=== PATIENT | male | born 1925 | race Caucasian/White ===

== ENCOUNTER 2016-06-08 11:50 | Inpatient (IN) | payer MEDICARE ==
[~2016-06-08] VITALS: Ht 170.2 cm; Wt 88.2 kg
[~2016-06-08 11:50] MED LIST: /AMLO25TA PO; /METO25TAB PO; /RANI15TA PO; ALBU17IN INH; AMLO10TA PO; AMLO2.5T PO; AMLO5TAB2 PO; ASPI1TAB PO; ASPI325T5 PO; CHLO25TA3 PO; CIPR500T89 PO; DETR4CAP PO; FINA5TAB2 PO; FLOM5CAP PO; HYDR10TAB PO; LISI-538 PO; METO25TA74 PO; NORV5TAB PO; OFLO1DRO3 AD; PROS5TAB PO; PYRI100T PO; RANI150T PO; SYST1SOL OU; TAMS0.4C PO; TAMS0.4C2 PO; TOLT2TAB PO; TROS20TA3 PO; WARF-20 PO; WARF4TAB28 PO; ZEST1TAB7 PO
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
--- NOTE | 2016-06-08 13:49 | IPNPDOC ---
Bicycle Fitter Progress Note DATE OF SERVICE: DATE OF ADMISSION: Jun 08, 2016 at 11:50 INPATIENT REHABILITATION ADMISSION DAY: # IDENTIFICATION STATEMENT: PAST MEDICAL HISTORY: PAST SURGICAL HISTORY: ALLERGIES: See Below MEDICATIONS ON ADMISSION: Reviewed, see below. SUBJECTIVE: VITAL SIGNS: Temperature , pulse , respiratory rate , blood pressure , pulse oximetry % on saturation on room air. PHYSICAL EXAMINATION: GENERAL: HEENT: . CARDIOVASCULAR: LUNGS: . ABDOMEN: . NEUROLOGICAL: SKIN: LABORATORY DATA: Reviewed, see below. IMAGING: ASSESSMENT AND PLAN: 1. . 2. . 3. . FUNCTIONAL STATUS: Premorbid: On Admission: ACTIVITY LIMITATIONS ON ADMISSION: 1. Difficulty with self-care. 2. Difficulty with mobility. 3. Difficulty with swallowing. 4. . PARTICIPATION LIMITATIONS ON ADMISSION: 1. Threatened discharge to home. 2. Threatened independence. 3. Threatened community access. 4. INTERDISCIPLINARY CARE AND DISCHARGE PLANNIN. . 2. . 3. . 4. . 5. . Vital Signs Vital Sign - Last 24 Hours 06/08/16 11:50 Temp 98.7 Pulse 59 Resp 18 Pulse Ox 99 O2 Delivery Room Air Allergies Allergies: Coded Allergies: No Known Allergies (Verified , 12/25/02) Current Medications Current Medications Current Medications Acetaminophen 650 mg 650 mg Q4HP PRN PO MILD PAIN (PS 1-4); Start 06/08/16 at 12:30; Stop 07/08/16 at 12:29 Amlodipine Besylate (Norvasc) 5 mg DAILY PO ; Start 06/09/16 at 09:00; Stop at 08:59 Ceftriaxone Sodium/Dextrose (Rocephin/ Dextrose 5% Mini-Bag Plus) 50 ml @ 100 mls/hr Q24H IV ; Start 06/09/16 at 08:00; Stop 06/16/16 at 07:59 Chlorthalidone (Hygroton) 25 mg DAILY@12 PO ; Start 06/09/16 at 12:00; Stop at 11:59 Docusate Sodium (Colace) 100 mg BID PO ; Start 06/08/16 at 09:00; Stop at 08:59 Magnesium Hydroxide (Milk Of Magnesia) 30 ml DAILYPRN PRN PO CONSTIPATION; Start 06/08/16 at 12:30; Stop 07/08/16 at 12:29 Metoprolol Succinate (TopROL XL) 25 mg BID PO ; Start 06/08/16 at 21:00; Stop 07/08/16 at 20:59 Pantoprazole Sodium (Protonix) 40 mg DAILY PO ; Start 06/09/16 at 09:00; Stop 07/09/16 at 08:59 Polyethylene Glycol (Miralax) 1 pkt DAILY PRN PO CONSTIPATION; Start 06/08/16 at 12:30; Stop 07/08/16 at 12:29 Potassium Chloride (Micro-K Extencaps) 40 meq DAILY PO ; Start 06/09/16 at 09: 00; Stop 07/09/16 at 08:59 Senna (Senokot) 1 tab QHS PO ; Start 06/08/16 at 21:00; Stop 07/08/16 at 20:59 JOHN FRY MD Jun 08, 2016 13:49
[2016-06-08] MEDS: DOCUSATE SODIUM 100 MG CAP PO SCH ×2 (13:53→20:21)
[2016-06-08 14:00] VITALS: BP 130/72
[2016-06-08 20:00] VITALS: BP 131/70
[2016-06-08] MEDS: METOPROLOL SUCC *XL* 25MG TAB (TopROL *XL*) PO SCH (20:21)
[2016-06-08] MEDS: SENNA 8.6 MG TAB (SENOKOT) PO SCH (20:21)
--- NOTE | 2016-06-08 21:11 | IPN ---
DATE: 06/07/2016 SUBJECTIVE: Mr. Cancino does not have any new complaints today. He has the persistent weakness of his left upper extremity and lower extremity but denies any pain. Denies any shortness of breath, any cough or phlegm. Denies any abdominal pain, nausea, vomiting, or diarrhea. Denies any leg pain or leg swelling. Denies any dysuria or frequency of urination. Patient was noted to be febrile and has been having spikes of temperature as high as 101.6 over the past 2 days; however, the patient did not complain of any chills. PHYSICAL EXAMINATION: VITAL SIGNS: Temperature 99, pulse 71, respiratory rate 16, blood pressure 152/68, pulse oximetry 95% on room air. GENERAL: Patient awake, alert, oriented times three, sitting up in chair in no acute distress. HEENT: Normocephalic, atraumatic. Moist mucous membranes. Anicteric eyes. CHEST: Clear to auscultation. CARDIOVASCULAR: S1, S2, regular. ABDOMEN: Soft, nontender. Bowel sounds present. EXTREMITIES: No edema. LABORATORY DATA: WBC 12.2, hemoglobin 11, platelets 160. Sodium 138, potassium 3.5, chloride 102, bicarbonate 25, BUN 29, creatinine 1.1, calcium 8.4. Liver function tests are normal. Coagulation profile is normal. UA dirty with 3+ leukocyte esterase, numerous WBC, 2+ blood, nitrite positive. Blood cultures and urine culture have been ordered. ASSESSMENT: This is an 89-year-old male admitted for intracranial hemorrhage. PLAN: 1. For intracranial hemorrhage patient's CT scan has been stable. Patient was initially admitted to Dr. Mckeon's service, but subsequently patient was signed off to hospitalist service. Patient has persistent left hemiparesis. Will need inpatient rehabilitation. 2. Atrial fibrillation, rate is controlled. Patient is n metoprolol. The patient has been off all anticoagulation because of intracranial bleed and has to be off anticoagulation for 6-8 weeks. 3. Benign prostatic hypertrophy (BPH). Will continue patient on finasteride and trospium. 4. Chronic kidney disease (CKD), stage II-III. Patient's creatinine is at baseline. 5. Hypertension, leading to hypertensive intracranial hemorrhage. 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 Will change amlodipine to 5 mg twice a day. Will continue with chlorthalidone and with metoprolol. Will also keep hydralazine as needed. 6. Deep vein thrombosis (DVT) prophylaxis is in place. 7. Gastrointestinal (GI) prophylaxis is in place.
[2016-06-09 06:00] VITALS: BP 161/71
[2016-06-09] MEDS: ACETAMINOPHEN TAB 650MG DOSE (2X325MG) PO PRN ×2 (06:08→17:02)
[2016-06-09 07:02] LABS: BASO # 0.1 K/mm3 (0.0-0.2); BASO % 0.9 % (0.0-1.0); EOS # 0.1 K/mm3 (0.0-0.50); EOS % 0.8 % (0.0-3.0); LARGE UNSTAINED CELL # 0.3 K/mm3 (0.0-0.4); LARGE UNSTAINED CELL % 3.1 % (0.0-4.0); LYMPH # 1.8 K/mm3 (1.5-4.5); LYMPH % 16.7 % (24.0-44.0); MEAN CORPUSCULAR HEMOGLOBIN 29.5 pg (27.0-33.0); MEAN CORPUSCULAR HGB CONC 33.6 g/dl (32.0-36.5); MEAN CORPUSCULAR VOLUME 87.9 fl (80.0-96.0); MONO # 0.7 K/mm3 (0.0-0.8); MONO % 7.3 % (0.0-5.0); NEUTROPHILS # 6.3 K/mm3 (1.8-7.7); NEUTROPHILS % 71.1 % (36.0-66.0); PLATELET COUNT, AUTOMATED 198 k/mm3 (150-450); RED CELL DISTRIBUTION WIDTH 13.7 % (11.5-14.5); WHITE BLOOD COUNT 8.8 K/mm3 (4.0-10.0)
[2016-06-09 07:38] LABS: ANION GAP 10 MEQ/L (8-16); BLOOD UREA NITROGEN 30 MG/DL (7-18); CALCIUM LEVEL 8.1 MG/DL (8.8-10.2); CARBON DIOXIDE LEVEL 27 MEQ/L (21-32); CHLORIDE LEVEL 98 MEQ/L (98-107); CREATININE FOR GFR 1.18 MG/DL (0.70-1.30); GLOMERULAR FILTRATION RATE > 60.0 (>35); GLUCOSE, FASTING 104 MG/DL (83-110); POTASSIUM SERUM 3.9 MEQ/L (3.5-5.1); SODIUM LEVEL 135 MEQ/L (136-145)
[2016-06-09] MEDS ORDERED: cefTRIAXone SOD 1 GM in D5W MINI-BAG PLUS 50 ML IV SCH (08:00)
[2016-06-09] MEDS: PANTOPRAZOLE 40MG TAB (PROTONIX) PO SCH (08:50)
[2016-06-09] MEDS: POTASSIUM CHLORIDE 10 MEQ SR TABLET PO SCH (08:51)
[2016-06-09] MEDS: DOCUSATE SODIUM 100 MG CAP PO SCH ×2 (08:51→20:10)
[2016-06-09] MEDS: METOPROLOL SUCC *XL* 25MG TAB (TopROL *XL*) PO SCH ×2 (08:52→20:10)
[2016-06-09] MEDS ORDERED: amLODIPine 5 MG TAB PO SCH (09:00)
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
[2016-06-09 11:03] VITALS: BP 134/62
[2016-06-09] MEDS: LACTOBACILLUS ACIDOPHILUS CAP (BACID) PO SCH ×3 (12:07→20:10)
[2016-06-09] MEDS: CHLORTHALIDONE 25 MG TAB PO SCH (12:07)
[2016-06-09 14:00] VITALS: BP 170/70
[2016-06-09 20:00] VITALS: BP 165/78
[2016-06-09] MEDS: FINASTERIDE 5 MG TAB PO SCH (20:10)
[2016-06-09] MEDS: SENNA 8.6 MG TAB (SENOKOT) PO SCH (20:10)
[2016-06-09] MEDS: CEFDINIR 300 MG CAP (OMNICEF) PO SCH (20:10)
[2016-06-09] MEDS: amLODIPine 5 MG TAB PO SCH (20:11)
[2016-06-10 06:00] VITALS: BP 158/80
[2016-06-10] MEDS: POTASSIUM CHLORIDE 10 MEQ SR TABLET PO SCH (09:00)
[2016-06-10] MEDS: CEFDINIR 300 MG CAP (OMNICEF) PO SCH ×2 (09:03→21:37)
[2016-06-10] MEDS: DOCUSATE SODIUM 100 MG CAP PO SCH ×2 (09:03→21:00)
[2016-06-10] MEDS: LACTOBACILLUS ACIDOPHILUS CAP (BACID) PO SCH ×3 (09:05→21:36)
[2016-06-10] MEDS: PANTOPRAZOLE 40MG TAB (PROTONIX) PO SCH (09:06)
[2016-06-10] MEDS: METOPROLOL SUCC *XL* 25MG TAB (TopROL *XL*) PO SCH ×2 (09:06→21:37)
[2016-06-10] MEDS: amLODIPine 5 MG TAB PO SCH ×2 (09:07→21:36)
[2016-06-10] MEDS: CHLORTHALIDONE 25 MG TAB PO SCH (11:50)
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
[2016-06-10 14:00] VITALS: BP 138/74
--- NOTE | 2016-06-10 16:04 | REP ---
LEFT HIP SERIES: TWO VIEWS. HISTORY: Groin pain after fall. FINDINGS: AP and frogleg views of the left hip demonstrate smooth rounded femoral head and intact hip joint space. No fracture is seen. No bony destructive lesion is seen. Vascular calcification is noted. Left hemipelvis appears intact. IMPRESSION: Vascular calcification. No acute bony abnormality. Signed by Rohan Richardson MD 06/10/2016 04:55 P
[2016-06-10] MEDS: ACETAMINOPHEN TAB 650MG DOSE (2X325MG) PO PRN (16:16)
[2016-06-10 20:00] VITALS: BP 170/72
[2016-06-10] MEDS: SENNA 8.6 MG TAB (SENOKOT) PO SCH (21:00)
[2016-06-10] MEDS: FINASTERIDE 5 MG TAB PO SCH (21:37)
[2016-06-10] MEDS: **hydrALAZINE** 10 MG TAB PO SCH (22:00)
[2016-06-11 05:45] VITALS: BP 160/80
[2016-06-11] MEDS: **hydrALAZINE** 10 MG TAB PO SCH ×3 (06:16→17:31)
[2016-06-11 07:44] LABS: MEAN CORPUSCULAR HEMOGLOBIN 29.5 pg (27.0-33.0); MEAN CORPUSCULAR VOLUME 89.7 fl (80.0-96.0); RED CELL DISTRIBUTION WIDTH 13.4 % (11.5-14.5); WHITE BLOOD COUNT 6.8 K/mm3 (4.0-10.0)
[2016-06-11 08:22] LABS: CALCIUM LEVEL 8.6 MG/DL (8.8-10.2); CREATININE FOR GFR 1.29 MG/DL (0.70-1.30); GLOMERULAR FILTRATION RATE 55.8 (>35); POTASSIUM SERUM 3.8 MEQ/L (3.5-5.1)
[2016-06-11] MEDS: LACTOBACILLUS ACIDOPHILUS CAP (BACID) PO SCH ×3 (08:37→21:27)
[2016-06-11] MEDS: amLODIPine 5 MG TAB PO SCH ×2 (08:37→21:28)
[2016-06-11] MEDS: DOCUSATE SODIUM 100 MG CAP PO SCH ×2 (08:37→21:27)
[2016-06-11] MEDS: CEFDINIR 300 MG CAP (OMNICEF) PO SCH ×2 (08:37→21:32)
[2016-06-11] MEDS: PANTOPRAZOLE 40MG TAB (PROTONIX) PO SCH (08:37)
[2016-06-11] MEDS: METOPROLOL SUCC *XL* 25MG TAB (TopROL *XL*) PO SCH ×2 (08:38→21:28)
[2016-06-11] MEDS: POTASSIUM CHLORIDE 10 MEQ SR TABLET PO SCH (08:38)
[2016-06-11 10:34] VITALS: BP 144/68
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
[2016-06-11] MEDS: CHLORTHALIDONE 25 MG TAB PO SCH (11:51)
[2016-06-11 14:00] VITALS: BP 150/68
[2016-06-11 17:37] VITALS: BP 148/64
[2016-06-11 20:36] VITALS: BP 170/70
[2016-06-11] MEDS: FINASTERIDE 5 MG TAB PO SCH (21:28)
[2016-06-11] MEDS: SENNA 8.6 MG TAB (SENOKOT) PO SCH (21:28)
[2016-06-11] MEDS: ACETAMINOPHEN TAB 650MG DOSE (2X325MG) PO PRN (21:30)
[2016-06-12] MEDS: **hydrALAZINE** 10 MG TAB PO SCH ×4 (00:06→17:49)
[2016-06-12 05:25] VITALS: BP 158/72
[2016-06-12] MEDS: LACTOBACILLUS ACIDOPHILUS CAP (BACID) PO SCH ×3 (09:29→20:55)
[2016-06-12] MEDS: DOCUSATE SODIUM 100 MG CAP PO SCH ×2 (09:30→20:55)
[2016-06-12] MEDS: amLODIPine 5 MG TAB PO SCH ×2 (09:30→20:56)
[2016-06-12] MEDS: PANTOPRAZOLE 40MG TAB (PROTONIX) PO SCH (09:30)
[2016-06-12] MEDS: METOPROLOL SUCC *XL* 25MG TAB (TopROL *XL*) PO SCH ×2 (09:30→20:56)
[2016-06-12] MEDS: CEFDINIR 300 MG CAP (OMNICEF) PO SCH ×2 (09:30→20:55)
[2016-06-12] MEDS: POTASSIUM CHLORIDE 10 MEQ SR TABLET PO SCH (09:31)
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
[2016-06-12] MEDS: CHLORTHALIDONE 25 MG TAB PO SCH (12:19)
[2016-06-12 14:00] VITALS: BP 150/69
[2016-06-12 20:00] VITALS: BP 165/74
[2016-06-12] MEDS: SENNA 8.6 MG TAB (SENOKOT) PO SCH (20:55)
[2016-06-12] MEDS: FINASTERIDE 5 MG TAB PO SCH (20:55)
[2016-06-13] MEDS: **hydrALAZINE** 10 MG TAB PO SCH ×5 (06:05→23:37)
[2016-06-13 06:45] VITALS: BP 162/75
[2016-06-13 07:55] VITALS: BP 161/70
[2016-06-13] MEDS: CEFDINIR 300 MG CAP (OMNICEF) PO SCH ×2 (09:17→20:52)
[2016-06-13] MEDS: POTASSIUM CHLORIDE 10 MEQ SR TABLET PO SCH (09:17)
[2016-06-13] MEDS: amLODIPine 5 MG TAB PO SCH ×2 (09:18→21:26)
[2016-06-13] MEDS: METOPROLOL SUCC *XL* 25MG TAB (TopROL *XL*) PO SCH ×2 (09:19→21:00)
[2016-06-13] MEDS: PANTOPRAZOLE 40MG TAB (PROTONIX) PO SCH (09:19)
[2016-06-13] MEDS: LACTOBACILLUS ACIDOPHILUS CAP (BACID) PO SCH ×3 (09:19→20:52)
[2016-06-13] MEDS: DOCUSATE SODIUM 100 MG CAP PO SCH ×2 (09:19→20:52)
[2016-06-13] MEDS: CHLORTHALIDONE 25 MG TAB PO SCH (12:02)
[2016-06-13 14:00] VITALS: BP 159/76
[2016-06-13 16:00] VITALS: BP 148/72
[2016-06-13] MEDS: FINASTERIDE 5 MG TAB PO SCH (20:52)
[2016-06-13] MEDS: SENNA 8.6 MG TAB (SENOKOT) PO SCH (20:55)
[2016-06-13 22:00] VITALS: BP 143/67
[2016-06-13 23:34] VITALS: BP 144/66
[2016-06-14] MEDS: **hydrALAZINE** 10 MG TAB PO SCH ×3 (05:46→17:24)
[2016-06-14 06:00] VITALS: BP 160/78
[2016-06-14 06:35] LABS: MEAN CORPUSCULAR HEMOGLOBIN 30.5 pg (27.0-33.0); MEAN CORPUSCULAR HGB CONC 34.2 g/dl (32.0-36.5); RED CELL DISTRIBUTION WIDTH 12.8 % (11.5-14.5); WHITE BLOOD COUNT 7.4 K/mm3 (4.0-10.0)
[2016-06-14 07:02] LABS: CALCIUM LEVEL 8.5 MG/DL (8.8-10.2); CREATININE FOR GFR 1.29 MG/DL (0.70-1.30); GLOMERULAR FILTRATION RATE 55.8 (>35)
[2016-06-14] MEDS: DOCUSATE SODIUM 100 MG CAP PO SCH ×2 (09:13→20:36)
[2016-06-14] MEDS: LACTOBACILLUS ACIDOPHILUS CAP (BACID) PO SCH ×3 (09:13→20:37)
[2016-06-14] MEDS: amLODIPine 5 MG TAB PO SCH ×2 (09:13→20:37)
[2016-06-14] MEDS: PANTOPRAZOLE 40MG TAB (PROTONIX) PO SCH (09:13)
[2016-06-14] MEDS: METOPROLOL SUCC *XL* 25MG TAB (TopROL *XL*) PO SCH ×2 (09:13→20:37)
[2016-06-14] MEDS: POTASSIUM CHLORIDE 10 MEQ SR TABLET PO SCH (09:14)
[2016-06-14] MEDS: CHLORTHALIDONE 25 MG TAB PO SCH (12:57)
[2016-06-14] MEDS: SENNA 8.6 MG TAB (SENOKOT) PO SCH (20:36)
[2016-06-14] MEDS: FINASTERIDE 5 MG TAB PO SCH (20:36)
[2016-06-14 22:00] VITALS: BP 163/74
[2016-06-14] MEDS: ACETAMINOPHEN TAB 650MG DOSE (2X325MG) PO PRN (22:40)
[2016-06-15] VITALS: BP 168/77
[2016-06-15] MEDS: **hydrALAZINE** 10 MG TAB PO SCH ×4 (00:28→17:09)
[2016-06-15 06:00] VITALS: BP 184/86
[2016-06-15] MEDS: POTASSIUM CHLORIDE 10 MEQ SR TABLET PO SCH (09:06)
[2016-06-15] MEDS: LACTOBACILLUS ACIDOPHILUS CAP (BACID) PO SCH ×3 (09:06→21:33)
[2016-06-15] MEDS: amLODIPine 5 MG TAB PO SCH ×2 (09:07→21:33)
[2016-06-15] MEDS: PANTOPRAZOLE 40MG TAB (PROTONIX) PO SCH (09:08)
[2016-06-15] MEDS: METOPROLOL SUCC *XL* 25MG TAB (TopROL *XL*) PO SCH ×2 (09:08→21:33)
[2016-06-15] MEDS: DOCUSATE SODIUM 100 MG CAP PO SCH ×2 (09:08→21:33)
[2016-06-15] MEDS: ACETAMINOPHEN TAB 650MG DOSE (2X325MG) PO PRN (09:10)
[2016-06-15] MEDS: CHLORTHALIDONE 25 MG TAB PO SCH (12:47)
[2016-06-15 14:00] VITALS: BP 115/61
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
[2016-06-15 20:00] VITALS: BP 161/73
[2016-06-15] MEDS: SENNA 8.6 MG TAB (SENOKOT) PO SCH (21:33)
[2016-06-15] MEDS: FINASTERIDE 5 MG TAB PO SCH (21:33)
[2016-06-16] VITALS (7 sets, daily range): BP systolic 140–185; BP diastolic 60–81
[2016-06-16] MEDS: **hydrALAZINE** 10 MG TAB PO SCH ×5 (05:37→23:39)
[2016-06-16] MEDS: DOCUSATE SODIUM 100 MG CAP PO SCH ×2 (09:01→21:30)
[2016-06-16] MEDS: POTASSIUM CHLORIDE 10 MEQ SR TABLET PO SCH (09:01)
[2016-06-16] MEDS: amLODIPine 5 MG TAB PO SCH ×2 (09:01→21:31)
[2016-06-16] MEDS: PANTOPRAZOLE 40MG TAB (PROTONIX) PO SCH (09:01)
[2016-06-16] MEDS: METOPROLOL SUCC *XL* 25MG TAB (TopROL *XL*) PO SCH ×2 (09:01→21:31)
[2016-06-16] MEDS: LACTOBACILLUS ACIDOPHILUS CAP (BACID) PO SCH ×3 (09:01→21:30)
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
[2016-06-16] MEDS: CHLORTHALIDONE 25 MG TAB PO SCH (12:26)
--- NOTE | 2016-06-16 15:14 | IPNPDOC ---
Assessment/Plan Date Seen The patient was seen on 06/16/16. Problems Problems: (1) Intracranial hemorrhage Status: Acute Problem Text: * off anticoagulation x 6-8 weeks as per NS recommendations. * F/U with Cardiology/Neurology as outpt. * Rehab as per PMR. * Dispo as per PMR (2) Chronic kidney disease Status: Chronic Problem Text: * 1.1-1.2 Baseline (3) GERD (gastroesophageal reflux disease) Status: Chronic Problem Text: * protonix (4) A-fib Status: Acute Problem Text: * Metoprolol rate control. * HR trend 55-75 * anticoagulation on hold. (5) BPH (benign prostatic hyperplasia) Status: Chronic Problem Text: * finasteride (6) Hypertension Status: Acute Problem Text: * Norvasc 5 BID, chlorthalidone 25, Toprol XL 25 BID, * Will increase Hydralazine to 20mg Q6 with hold parameters (Hold SBP<140) for additional BP control. * BP trends 144-170 Plan / VTE VTE Prophylaxis Ordered?: Yes (SCD/TEDS) Subjective Review of Systems CC/HPI The patient is a 89-year-old male admitted with a reason for visit of CVA. Events since last encounter Pt with no complaints, states feels tired. participating with PT. ENT: Denies: Dysphagia, Ear Pain, Head Aches Pulmonary: Denies: Cough, Dyspnea Cardiovascular: Denies: Chest Pain, Lt Headedness, Orthopnea, Palpitations, Paroxysmal Noc. Dyspnea Gastrointestinal: Denies: Abdominal Pain, Diarrhea, Nausea, Vomiting Genitourinary: Denies: Dysuria, Frequency, Incontinence, Retention Musculoskeletal: Denies: Back Pain, Joint Pain, Muscle Pain, Neck Pain, Spasms Objective Physical Examination General Exam: Positive: Alert Eye Exam: Positive: PERRLA ENT Exam: Positive: Atraumatic Chest Exam: Positive: Clear to auscultation, Normal air movement Heart Exam: Positive: Normal S1, Normal S2, Rate Normal, Regular Rhythm, Negative: Murmurs, Rubs Abdomen Exam: Positive: Normal bowel sounds, Soft, Negative: Hepatospenomegaly, Tenderness Skin Exam: Positive: Nl turgor and temperature Vital Signs/I&O Vital Signs Date Time Temp Pulse Resp B/P Pulse Ox O2 Delivery O2 Flow Rate FiO2 06/16/16 14:00 97.6 63 20 161/81 95 06/16/16 06:00 Room Air I&O- Last 24 Hours up to 6 AM 06/16/16 06:00 Intake Total 1200 ml Output Total 300 ml Balance 900 ml Alanis Belle Jun 16, 2016 15:14
[2016-06-16] MEDS: SENNA 8.6 MG TAB (SENOKOT) PO SCH (21:30)
[2016-06-16] MEDS: FINASTERIDE 5 MG TAB PO SCH (21:31)
[2016-06-17 05:24] VITALS: BP 171/73
[2016-06-17] MEDS: **hydrALAZINE** 10 MG TAB PO SCH ×4 (05:50→23:32)
[2016-06-17 06:57] LABS: MEAN CORPUSCULAR HEMOGLOBIN 29.9 pg (27.0-33.0); MEAN CORPUSCULAR HGB CONC 34.8 g/dl (32.0-36.5); MEAN CORPUSCULAR VOLUME 85.8 fl (80.0-96.0); RED CELL DISTRIBUTION WIDTH 13.5 % (11.5-14.5)
[2016-06-17 07:29] LABS: ALBUMIN 3.5 GM/DL (3.2-5.2); ALBUMIN/GLOBULIN RATIO 1.13 (1.00-1.93); BILIRUBIN,TOTAL 0.4 MG/DL (0.2-1.0); CALCIUM LEVEL 8.6 MG/DL (8.8-10.2); CREATININE FOR GFR 1.45 MG/DL (0.70-1.30); GLOMERULAR FILTRATION RATE 48.8 (>35); POTASSIUM SERUM 3.7 MEQ/L (3.5-5.1); TOTAL PROTEIN 6.6 GM/DL (6.4-8.2)
[2016-06-17] MEDS: DOCUSATE SODIUM 100 MG CAP PO SCH ×2 (09:12→20:50)
[2016-06-17] MEDS: METOPROLOL SUCC *XL* 25MG TAB (TopROL *XL*) PO SCH ×2 (09:12→20:50)
[2016-06-17] MEDS: POTASSIUM CHLORIDE 10 MEQ SR TABLET PO SCH (09:13)
[2016-06-17] MEDS: amLODIPine 5 MG TAB PO SCH ×2 (09:13→20:50)
[2016-06-17] MEDS: LACTOBACILLUS ACIDOPHILUS CAP (BACID) PO SCH ×3 (09:13→20:50)
[2016-06-17] MEDS: PANTOPRAZOLE 40MG TAB (PROTONIX) PO SCH (09:13)
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
[2016-06-17 11:42] VITALS: BP 130/62
[2016-06-17] MEDS: CHLORTHALIDONE 25 MG TAB PO SCH (12:00)
--- NOTE | 2016-06-17 12:42 | IPNPDOC ---
Assessment/Plan Date Seen The patient was seen on 06/17/16. Problems Problems: (1) Intracranial hemorrhage Status: Acute Problem Text: * off anticoagulation x 6-8 weeks as per NS recommendations. * no ASA until cleared as per NS. * F/U with Cardiology/Neurology as outpt. * Rehab as per PMR. * Dispo as per PMR (2) Chronic kidney disease Status: Chronic Problem Text: * 1.1-1.2 Baseline * 1.45 today, d/c chlorthalidone, rechk BMP in AM (3) GERD (gastroesophageal reflux disease) Status: Chronic Problem Text: * protonix (4) A-fib Status: Acute Problem Text: * Metoprolol rate control. * HR trend 55-75 * anticoagulation on hold. (5) BPH (benign prostatic hyperplasia) Status: Chronic Problem Text: * finasteride (6) Hypertension Status: Acute Problem Text: * Norvasc 5 BID,, Toprol XL 25 BID, * Hydralazine 20mg Q6 with hold parameters (Hold SBP<140) for additional BP control. * BP trends 144-170 * chlorthalidone d/c 06/17 (7) CAD (coronary artery disease) Status: Chronic Problem Text: * Metoprolol * ASA on hold Plan / VTE VTE Prophylaxis Ordered?: Yes (SCD/TEDS) Subjective Review of Systems CC/HPI The patient is a 89-year-old male admitted with a reason for visit of CVA. Events since last encounter pt with no new complaints. ENT: Denies: Dysphagia, Ear Pain, Head Aches Pulmonary: Denies: Cough, Dyspnea Cardiovascular: Denies: Chest Pain, Lt Headedness, Orthopnea, Palpitations, Paroxysmal Noc. Dyspnea Gastrointestinal: Denies: Abdominal Pain, Diarrhea, Nausea, Vomiting Genitourinary: Denies: Dysuria, Frequency, Incontinence, Retention Objective Physical Examination General Exam: Positive: Alert Eye Exam: Positive: PERRLA ENT Exam: Positive: Atraumatic Chest Exam: Positive: Clear to auscultation, Normal air movement Heart Exam: Positive: Normal S1, Normal S2, Rate Normal, Regular Rhythm, Negative: Murmurs, Rubs Abdomen Exam: Positive: Normal bowel sounds, Soft, Negative: Hepatospenomegaly, Tenderness Skin Exam: Positive: Nl turgor and temperature Vital Signs/I&O Vital Signs Date Time Temp Pulse Resp B/P Pulse Ox O2 Delivery O2 Flow Rate FiO2 06/17/16 11:43 130/62 06/17/16 09:13 57 06/17/16 08:00 Room Air 06/17/16 05:24 98.7 18 97 I&O- Last 24 Hours up to 6 AM 06/17/16 06:00 Intake Total 1020 ml Output Total 1095 ml Balance -75 ml Laboratory Data Labs 24H Laboratory Tests 2 06/17/16 06:45: Blood Urea Nitrogen 36H, Creatinine 1.45H, Sodium Level 132L, Potassium Level 3.7, Chloride Level 95L, Carbon Dioxide Level 27, Calcium Level 8.6L, Aspartate Amino Transf (AST/SGOT) 14L, Alanine Aminotransferase (ALT/SGPT) 19, Alkaline Phosphatase 51, Total Bilirubin 0.4, Total Protein 6.6, Albumin 3.5, Albumin/ Globulin Ratio 1.13, Anion Gap 10, Glomerular Filtration Rate 48.8 CBC/BMP Laboratory Tests 06/17/16 06:45 Calcium Level 8.6 L, Aspartate Amino Transf (AST/SGOT) 14 L, Alanine Aminotransferase (ALT/SGPT) 19, Alkaline Phosphatase 51, Total Bilirubin 0.4, Total Protein 6.6, Albumin 3.5, Red Blood Count 3.71 L, Mean Corpuscular Volume 85.8, Mean Corpuscular Hemoglobin 29.9, Mean Corpuscular Hemoglobin Concent 34.8 , Red Cell Distribution Width 13.5 Alanis Belle Jun 17, 2016 12:42
[2016-06-17] MEDS ORDERED: ALBUTEROL SULFATE 2.5 MG/0.5 ML INH NEB SOLN NEB PRN (13:45)
[2016-06-17 14:00] VITALS: BP 165/78
[2016-06-17 17:30] VITALS: BP 150/75
[2016-06-17 20:00] VITALS: BP 155/67
[2016-06-17] MEDS: FINASTERIDE 5 MG TAB PO SCH (20:50)
[2016-06-17] MEDS: SENNA 8.6 MG TAB (SENOKOT) PO SCH (20:50)
[2016-06-18] VITALS: BP 138/72
[2016-06-18 06:00] VITALS: BP 148/70
[2016-06-18] MEDS: **hydrALAZINE** 10 MG TAB PO SCH ×4 (06:12→23:21)
[2016-06-18 07:05] LABS: CALCIUM LEVEL 9.2 MG/DL (8.8-10.2); CREATININE FOR GFR 1.48 MG/DL (0.70-1.30); GLOMERULAR FILTRATION RATE 47.6 (>35); POTASSIUM SERUM 3.9 MEQ/L (3.5-5.1)
[2016-06-18] MEDS: DOCUSATE SODIUM 100 MG CAP PO SCH ×2 (08:42→22:01)
[2016-06-18] MEDS: LACTOBACILLUS ACIDOPHILUS CAP (BACID) PO SCH ×3 (08:42→22:00)
[2016-06-18] MEDS: amLODIPine 5 MG TAB PO SCH ×2 (08:44→22:02)
[2016-06-18] MEDS: METOPROLOL SUCC *XL* 25MG TAB (TopROL *XL*) PO SCH ×2 (08:45→22:01)
[2016-06-18] MEDS: POTASSIUM CHLORIDE 10 MEQ SR TABLET PO SCH (08:45)
[2016-06-18] MEDS: PANTOPRAZOLE 40MG TAB (PROTONIX) PO SCH (08:45)
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
[2016-06-18 14:00] VITALS: BP 171/98
--- NOTE | 2016-06-18 14:42 | IPNPDOC ---
Assessment/Plan Date Seen The patient was seen on 06/18/16. Problems Problems: (1) Intracranial hemorrhage Status: Acute Problem Text: * off anticoagulation x 6-8 weeks as per NS recommendations. * no ASA until cleared as per NS. * F/U with Cardiology/Neurology as outpt. * Rehab as per PMR. * Dispo as per PMR (2) Chronic kidney disease Status: Chronic Problem Text: * 1.1-1.2 Baseline * 1.48 today, * chlorthalidone d/cd, * rechk BMP in AM (3) GERD (gastroesophageal reflux disease) Status: Chronic Problem Text: * protonix (4) A-fib Status: Acute Problem Text: * Metoprolol rate control. * HR trend 55-75 * anticoagulation on hold. (5) BPH (benign prostatic hyperplasia) Status: Chronic Problem Text: * finasteride (6) Hypertension Status: Acute Problem Text: * Norvasc 5 BID,, Toprol XL 25 BID, * Hydralazine 20mg Q6 with hold parameters (Hold SBP<140) for additional BP control. * BP trends 144-170 * chlorthalidone d/c 06/17 (7) CAD (coronary artery disease) Status: Chronic Problem Text: * Metoprolol * ASA on hold (8) Abdominal pain Status: Acute Problem Text: * LLQ pain * CT A&P requested. * CBCd pending. * Dr Spangler aware Plan / VTE VTE Prophylaxis Ordered?: Yes (SCD/TEDS) Subjective Review of Systems CC/HPI The patient is a 89-year-old male admitted with a reason for visit of CVA. Events since last encounter Pt states did not eat lunch. decreased po intake. reports lower left abdominal pain. Objective Physical Examination General Exam: Positive: Alert Eye Exam: Positive: PERRLA ENT Exam: Positive: Atraumatic Chest Exam: Positive: Clear to auscultation, Normal air movement Heart Exam: Positive: Normal S1, Normal S2, Rate Normal, Regular Rhythm, Negative: Murmurs, Rubs Abdomen Exam: Positive: Other (TTP LLQ) Skin Exam: Positive: Nl turgor and temperature Vital Signs/I&O Vital Signs Date Time Temp Pulse Resp B/P Pulse Ox O2 Delivery O2 Flow Rate FiO2 06/18/16 12:28 167/76 06/18/16 08:49 Room Air 06/18/16 08:44 61 06/18/16 06:00 98.0 18 92 I&O- Last 24 Hours up to 6 AM 06/18/16 06:00 Intake Total 900 ml Output Total 0 ml Balance 900 ml Laboratory Data Labs 24H Laboratory Tests 2 06/18/16 06:26: Anion Gap 10, Blood Urea Nitrogen 37H, Creatinine 1.48H, Sodium Level 134L, Potassium Level 3.9, Chloride Level 97L, Carbon Dioxide Level 27, Calcium Level 9.2, Glomerular Filtration Rate 47.6 CBC/BMP Laboratory Tests 06/18/16 06:26 Calcium Level 9.2 Alanis Belle Jun 18, 2016 14:42
[2016-06-18 15:26] LABS: BASO % 0.4 % (0.0-1.0); EOS # 0.2 K/mm3 (0.0-0.50); EOS % 1.3 % (0.0-3.0); LARGE UNSTAINED CELL # 0.2 K/mm3 (0.0-0.4); LARGE UNSTAINED CELL % 1.5 % (0.0-4.0); LYMPH # 1.3 K/mm3 (1.5-4.5); LYMPH % 8.9 % (24.0-44.0); MEAN CORPUSCULAR HGB CONC 33.9 g/dl (32.0-36.5); MEAN CORPUSCULAR VOLUME 88.6 fl (80.0-96.0); MONO # 0.6 K/mm3 (0.0-0.8); MONO % 4.5 % (0.0-5.0); NEUTROPHILS # 10.7 K/mm3 (1.8-7.7); NEUTROPHILS % 83.5 % (36.0-66.0); PLATELET COUNT, AUTOMATED 224 k/mm3 (150-450); RED CELL DISTRIBUTION WIDTH 13.7 % (11.5-14.5); WHITE BLOOD COUNT 12.8 K/mm3 (4.0-10.0)
--- NOTE | 2016-06-18 16:46 | REP ---
CT abdomen and pelvis without IV or oral contrast 06/18/2016 Indication: Left lower quadrant pain Comparison: CT abdomen pelvis 06/12/2013 formed with IV contrast Findings: Small amount of dependent atelectasis/scarring in the lung bases bilaterally. The liver, spleen normal. Pancreas is moderately atrophic freshened from prior study. Gallbladder has a bilobed appearance pains multiple gallstones and there is no gallbladder wall thickening or biliary dilatation. Adrenal glands are normal. The kidneys are without hydronephrosis or obstructing ureteral calculi bilaterally. There is a small left parapelvic renal cyst of 9 mm diameter and a 11 mm hyperdense left renal nodule is compatible with a complex/hemorrhagic cyst moderate atherosclerotic changes are noted in the abdominal aorta. Persistent umbilical hernia in the supraumbilical hernia are noted. Umbilical hernia is 5.3 cm transverse dimension contains mostly omental fat and a small nonobstructed small bowel loop. The appearance is improved from prior study. There is a supraumbilical hernia of 4.8 cm diameter which only contains omental fat. This represents interval change from prior study. There is a 4.5 cm hiatal hernia. Small bowel is within normal limits. Terminal ileum is normal. The appendix is surgically absent. Prostate is surgically absent. There is a large amount of retained stool within the right colon and to a lesser extent transverse and descending colon. There is no free air or ascites. Impression 1. Cholelithiasis 2. Bilateral renal cortical cysts. Findings concerning for complex/hemorrhagic 11 mm cyst in the left renal pelvis. 3. Supraumbilical as well as umbilical hernias, yet without bowel obstruction. 4. Large amount of retained stool in the right colon; mild to moderate stool within the remainder of colon. Signed by Tara Guadalupe MD 06/18/2016 04:38 P
[2016-06-18 20:00] VITALS: BP 140/65
[2016-06-18] MEDS: ACETAMINOPHEN TAB 650MG DOSE (2X325MG) PO PRN ×2 (21:07→22:26)
[2016-06-18] MEDS: FINASTERIDE 5 MG TAB PO SCH (22:01)
[2016-06-18] MEDS: SENNA 8.6 MG TAB (SENOKOT) PO SCH (22:01)
[2016-06-18] MEDS: MOM 30ML SUSPENSION UDC PO PRN (22:21)
[2016-06-18] MEDS: MIRALAX *UNIT DOSE* 17GM PACKET PO PRN (22:21)
[2016-06-18 23:21] VITALS: BP 130/58
[2016-06-19] VITALS: BP 140/63
[2016-06-19 06:00] VITALS: BP 148/78
[2016-06-19] MEDS: **hydrALAZINE** 10 MG TAB PO SCH ×3 (06:13→17:56)
[2016-06-19] MEDS: ACETAMINOPHEN TAB 650MG DOSE (2X325MG) PO PRN ×2 (06:14→20:51)
[2016-06-19 06:53] LABS: MEAN CORPUSCULAR HEMOGLOBIN 29.7 pg (27.0-33.0); MEAN CORPUSCULAR HGB CONC 33.4 g/dl (32.0-36.5); MEAN CORPUSCULAR VOLUME 89.1 fl (80.0-96.0); RED CELL DISTRIBUTION WIDTH 13.5 % (11.5-14.5); WHITE BLOOD COUNT 9.8 K/mm3 (4.0-10.0)
[2016-06-19 07:17] LABS: CREATININE FOR GFR 1.36 MG/DL (0.70-1.30); GLOMERULAR FILTRATION RATE 52.5 (>35); POTASSIUM SERUM 3.9 MEQ/L (3.5-5.1)
[2016-06-19] MEDS: LACTOBACILLUS ACIDOPHILUS CAP (BACID) PO SCH ×3 (09:05→20:49)
[2016-06-19] MEDS: METOPROLOL SUCC *XL* 25MG TAB (TopROL *XL*) PO SCH ×2 (09:06→20:50)
[2016-06-19] MEDS: amLODIPine 5 MG TAB PO SCH ×2 (09:06→20:50)
[2016-06-19] MEDS: PANTOPRAZOLE 40MG TAB (PROTONIX) PO SCH (09:06)
[2016-06-19] MEDS: DOCUSATE SODIUM 100 MG CAP PO SCH ×2 (09:06→20:49)
[2016-06-19] MEDS: MOM 30ML SUSPENSION UDC PO PRN (09:07)
[2016-06-19] MEDS: MIRALAX *UNIT DOSE* 17GM PACKET PO PRN (09:07)
[2016-06-19 11:23] VITALS: BP 154/72
[2016-06-19 14:00] VITALS: BP 156/70
[2016-06-19 17:55] VITALS: BP 159/74
[2016-06-19 20:00] VITALS: BP 140/84
[2016-06-19] MEDS: FINASTERIDE 5 MG TAB PO SCH (20:50)
[2016-06-19] MEDS: SENNA 8.6 MG TAB (SENOKOT) PO SCH (20:50)
[2016-06-20 06:00] VITALS: BP 130/70
[2016-06-20] MEDS: **hydrALAZINE** 10 MG TAB PO SCH ×5 (06:00→23:36)
[2016-06-20] MEDS: DOCUSATE SODIUM 100 MG CAP PO SCH ×2 (09:50→20:36)
[2016-06-20] MEDS: amLODIPine 5 MG TAB PO SCH ×2 (09:50→20:37)
[2016-06-20] MEDS: PANTOPRAZOLE 40MG TAB (PROTONIX) PO SCH (09:50)
[2016-06-20] MEDS: LACTOBACILLUS ACIDOPHILUS CAP (BACID) PO SCH ×3 (09:50→20:36)
[2016-06-20] MEDS: METOPROLOL SUCC *XL* 25MG TAB (TopROL *XL*) PO SCH ×2 (09:51→20:37)
[2016-06-20 14:00] VITALS: BP 112/78
[2016-06-20 20:00] VITALS: BP 142/65
[2016-06-20] MEDS: SENNA 8.6 MG TAB (SENOKOT) PO SCH (20:37)
[2016-06-20] MEDS: FINASTERIDE 5 MG TAB PO SCH (20:37)
[2016-06-21] MEDS: **hydrALAZINE** 10 MG TAB PO SCH ×4 (05:37→23:54)
[2016-06-21 06:00] VITALS: BP 159/70
[2016-06-21] MEDS: LACTOBACILLUS ACIDOPHILUS CAP (BACID) PO SCH ×3 (08:46→20:33)
[2016-06-21] MEDS: DOCUSATE SODIUM 100 MG CAP PO SCH ×2 (08:46→20:33)
[2016-06-21] MEDS: PANTOPRAZOLE 40MG TAB (PROTONIX) PO SCH (08:46)
[2016-06-21] MEDS: amLODIPine 5 MG TAB PO SCH ×2 (08:47→20:32)
[2016-06-21] MEDS: METOPROLOL SUCC *XL* 25MG TAB (TopROL *XL*) PO SCH ×2 (08:49→20:33)
[2016-06-21 14:00] VITALS: BP 170/80
[2016-06-21 20:00] VITALS: BP 151/69
[2016-06-21] MEDS: SENNA 8.6 MG TAB (SENOKOT) PO SCH (20:33)
[2016-06-21] MEDS: FINASTERIDE 5 MG TAB PO SCH (20:33)
[2016-06-21] MEDS: ACETAMINOPHEN TAB 650MG DOSE (2X325MG) PO PRN (20:33)
[2016-06-22 06:00] VITALS: BP 170/74
[2016-06-22] MEDS: **hydrALAZINE** 10 MG TAB PO SCH ×3 (06:05→18:10)
[2016-06-22 07:25] VITALS: BP 138/68
[2016-06-22] MEDS: METOPROLOL SUCC *XL* 25MG TAB (TopROL *XL*) PO SCH ×2 (09:01→21:42)
[2016-06-22] MEDS: amLODIPine 5 MG TAB PO SCH ×2 (09:01→21:42)
[2016-06-22] MEDS: PANTOPRAZOLE 40MG TAB (PROTONIX) PO SCH (09:01)
[2016-06-22] MEDS: LACTOBACILLUS ACIDOPHILUS CAP (BACID) PO SCH ×3 (09:02→21:42)
[2016-06-22] MEDS: DOCUSATE SODIUM 100 MG CAP PO SCH ×2 (09:02→21:41)
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
[2016-06-22 14:05] VITALS: BP 137/63
[2016-06-22 20:00] VITALS: BP 142/64
[2016-06-22] MEDS: FINASTERIDE 5 MG TAB PO SCH (21:42)
[2016-06-22] MEDS: SENNA 8.6 MG TAB (SENOKOT) PO SCH (21:42)
[2016-06-23] MEDS: **hydrALAZINE** 10 MG TAB PO SCH ×4 (00:42→17:07)
[2016-06-23 06:00] VITALS: BP 148/62
[2016-06-23 06:40] LABS: MEAN CORPUSCULAR HEMOGLOBIN 30.1 pg (27.0-33.0); MEAN CORPUSCULAR HGB CONC 34.4 g/dl (32.0-36.5); MEAN CORPUSCULAR VOLUME 87.5 fl (80.0-96.0); RED CELL DISTRIBUTION WIDTH 12.6 % (11.5-14.5); WHITE BLOOD COUNT 9.4 K/mm3 (4.0-10.0)
[2016-06-23 06:46] LABS: ANION GAP 8 MEQ/L (8-16); BLOOD UREA NITROGEN 27 MG/DL (7-18); CALCIUM LEVEL 8.5 MG/DL (8.8-10.2); CARBON DIOXIDE LEVEL 27 MEQ/L (21-32); CHLORIDE LEVEL 99 MEQ/L (98-107); CREATININE FOR GFR 1.15 MG/DL (0.70-1.30); GLOMERULAR FILTRATION RATE > 60.0 (>35); GLUCOSE, FASTING 97 MG/DL (83-110); POTASSIUM SERUM 3.9 MEQ/L (3.5-5.1); SODIUM LEVEL 134 MEQ/L (136-145)
[2016-06-23] MEDS: MIRALAX *UNIT DOSE* 17GM PACKET PO PRN (09:00)
[2016-06-23] MEDS: LACTOBACILLUS ACIDOPHILUS CAP (BACID) PO SCH ×3 (09:00→21:02)
[2016-06-23] MEDS: MOM 30ML SUSPENSION UDC PO PRN (09:00)
[2016-06-23] MEDS: METOPROLOL SUCC *XL* 25MG TAB (TopROL *XL*) PO SCH ×2 (09:01→21:02)
[2016-06-23] MEDS: PANTOPRAZOLE 40MG TAB (PROTONIX) PO SCH (09:01)
[2016-06-23] MEDS: amLODIPine 5 MG TAB PO SCH ×2 (09:01→21:01)
[2016-06-23] MEDS: DOCUSATE SODIUM 100 MG CAP PO SCH ×2 (09:01→21:02)
[2016-06-23 12:05] VITALS: BP 159/70
[2016-06-23 14:00] VITALS: BP 144/66
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
[2016-06-23] MEDS: CHLORTHALIDONE 12.5MG PER 1/2 TABLET PO SCH (15:24)
[2016-06-23 15:28] LABS: PERCENT SATURATION 21.1 % (19.7-37.4); TOTAL IRON BINDING CAPACITY 256 UG/DL (250-450)
[2016-06-23 17:06] VITALS: BP 157/89
[2016-06-23 21:00] VITALS: BP 157/76
[2016-06-23] MEDS: FINASTERIDE 5 MG TAB PO SCH (21:01)
[2016-06-23] MEDS: SENNA 8.6 MG TAB (SENOKOT) PO SCH (21:02)
[2016-06-24 00:42] VITALS: BP 130/60
[2016-06-24] MEDS: **hydrALAZINE** 10 MG TAB PO SCH ×4 (06:36→17:40)
[2016-06-24 06:43] VITALS: BP 142/68
[2016-06-24] MEDS: LACTOBACILLUS ACIDOPHILUS CAP (BACID) PO SCH ×3 (08:33→21:00)
[2016-06-24] MEDS: CHLORTHALIDONE 12.5MG PER 1/2 TABLET PO SCH (08:33)
[2016-06-24] MEDS: DOCUSATE SODIUM 100 MG CAP PO SCH ×2 (08:33→21:00)
[2016-06-24] MEDS: METOPROLOL SUCC *XL* 25MG TAB (TopROL *XL*) PO SCH ×2 (08:34→21:00)
[2016-06-24] MEDS: amLODIPine 5 MG TAB PO SCH ×2 (08:34→20:59)
[2016-06-24] MEDS: PANTOPRAZOLE 40MG TAB (PROTONIX) PO SCH (08:34)
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
[2016-06-24 11:18] VITALS: BP 163/73
[2016-06-24 14:00] VITALS: BP 142/70
[2016-06-24 17:39] VITALS: BP 162/76
[2016-06-24] MEDS: FINASTERIDE 5 MG TAB PO SCH (20:59)
[2016-06-24] MEDS: SENNA 8.6 MG TAB (SENOKOT) PO SCH (20:59)
[2016-06-24 21:00] VITALS: BP 157/62
[2016-06-25 06:33] VITALS: BP 152/70
[2016-06-25] MEDS: **hydrALAZINE** 10 MG TAB PO SCH ×5 (06:33→23:45)
[2016-06-25 07:16] LABS: MEAN CORPUSCULAR HEMOGLOBIN 29.7 pg (27.0-33.0); MEAN CORPUSCULAR HGB CONC 33.8 g/dl (32.0-36.5); MEAN CORPUSCULAR VOLUME 87.9 fl (80.0-96.0); RED CELL DISTRIBUTION WIDTH 12.7 % (11.5-14.5); WHITE BLOOD COUNT 6.4 K/mm3 (4.0-10.0)
[2016-06-25 07:31] LABS: CALCIUM LEVEL 8.8 MG/DL (8.8-10.2); CREATININE FOR GFR 1.28 MG/DL (0.70-1.30); GLOMERULAR FILTRATION RATE 56.3 (>35); POTASSIUM SERUM 3.9 MEQ/L (3.5-5.1)
[2016-06-25] MEDS: DOCUSATE SODIUM 100 MG CAP PO SCH ×2 (09:57→20:36)
[2016-06-25] MEDS: PANTOPRAZOLE 40MG TAB (PROTONIX) PO SCH (09:57)
[2016-06-25] MEDS: LACTOBACILLUS ACIDOPHILUS CAP (BACID) PO SCH ×3 (09:58→20:36)
[2016-06-25] MEDS: CHLORTHALIDONE 12.5MG PER 1/2 TABLET PO SCH (09:58)
[2016-06-25] MEDS: METOPROLOL SUCC *XL* 25MG TAB (TopROL *XL*) PO SCH ×2 (10:01→20:36)
[2016-06-25] MEDS: amLODIPine 5 MG TAB PO SCH ×2 (10:02→20:37)
[2016-06-25 14:34] VITALS: BP 144/74
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
[2016-06-25 20:00] VITALS: BP 160/77
[2016-06-25] MEDS: SENNA 8.6 MG TAB (SENOKOT) PO SCH (20:36)
[2016-06-25] MEDS: FINASTERIDE 5 MG TAB PO SCH (20:36)
[2016-06-25 23:44] VITALS: BP 133/65
[2016-06-26] MEDS: **hydrALAZINE** 10 MG TAB PO SCH ×3 (05:20→17:49)
[2016-06-26 05:22] VITALS: BP 148/70
[2016-06-26] MEDS: LACTOBACILLUS ACIDOPHILUS CAP (BACID) PO SCH ×3 (09:05→22:18)
[2016-06-26] MEDS: amLODIPine 5 MG TAB PO SCH ×2 (09:05→22:18)
[2016-06-26] MEDS: PANTOPRAZOLE 40MG TAB (PROTONIX) PO SCH (09:06)
[2016-06-26] MEDS: CHLORTHALIDONE 12.5MG PER 1/2 TABLET PO SCH (09:06)
[2016-06-26] MEDS: DOCUSATE SODIUM 100 MG CAP PO SCH ×2 (09:06→22:17)
[2016-06-26] MEDS: METOPROLOL SUCC *XL* 25MG TAB (TopROL *XL*) PO SCH ×2 (09:06→22:18)
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
[2016-06-26 11:16] VITALS: BP 155/67
[2016-06-26 14:00] VITALS: BP 172/77
[2016-06-26 17:35] VITALS: BP 145/65
[2016-06-26 20:00] VITALS: BP 132/70
[2016-06-26] MEDS: FINASTERIDE 5 MG TAB PO SCH (22:17)
[2016-06-26] MEDS: SENNA 8.6 MG TAB (SENOKOT) PO SCH (22:18)
[2016-06-27] MEDS: **hydrALAZINE** 10 MG TAB PO SCH ×5 (00:06→23:58)
[2016-06-27 06:00] VITALS: BP 140/64
[2016-06-27 06:53] LABS: MEAN CORPUSCULAR HEMOGLOBIN 29.6 pg (27.0-33.0); MEAN CORPUSCULAR HGB CONC 33.9 g/dl (32.0-36.5); MEAN CORPUSCULAR VOLUME 87.5 fl (80.0-96.0); RED CELL DISTRIBUTION WIDTH 13.6 % (11.5-14.5); WHITE BLOOD COUNT 6.2 K/mm3 (4.0-10.0)
[2016-06-27 07:07] LABS: CALCIUM LEVEL 8.7 MG/DL (8.8-10.2); CREATININE FOR GFR 1.25 MG/DL (0.70-1.30); GLOMERULAR FILTRATION RATE 57.9 (>35); POTASSIUM SERUM 3.5 MEQ/L (3.5-5.1)
[2016-06-27] MEDS: LACTOBACILLUS ACIDOPHILUS CAP (BACID) PO SCH ×3 (08:47→21:54)
[2016-06-27] MEDS: METOPROLOL SUCC *XL* 25MG TAB (TopROL *XL*) PO SCH ×2 (08:47→21:56)
[2016-06-27] MEDS: CHLORTHALIDONE 12.5MG PER 1/2 TABLET PO SCH (08:47)
[2016-06-27] MEDS: amLODIPine 5 MG TAB PO SCH ×2 (08:48→21:56)
[2016-06-27] MEDS: DOCUSATE SODIUM 100 MG CAP PO SCH ×2 (08:48→21:54)
[2016-06-27] MEDS: PANTOPRAZOLE 40MG TAB (PROTONIX) PO SCH (08:48)
[2016-06-27 14:00] VITALS: BP 130/60
[2016-06-27 21:00] VITALS: BP 150/68
[2016-06-27] MEDS: SENNA 8.6 MG TAB (SENOKOT) PO SCH (21:54)
[2016-06-27] MEDS: FINASTERIDE 5 MG TAB PO SCH (21:54)
[2016-06-28] MEDS: **hydrALAZINE** 10 MG TAB PO SCH ×3 (05:58→17:28)
[2016-06-28 06:00] VITALS: BP 142/62
[2016-06-28] MEDS: LACTOBACILLUS ACIDOPHILUS CAP (BACID) PO SCH ×3 (08:37→21:53)
[2016-06-28] MEDS: METOPROLOL SUCC *XL* 25MG TAB (TopROL *XL*) PO SCH ×2 (08:37→21:54)
[2016-06-28] MEDS: CHLORTHALIDONE 12.5MG PER 1/2 TABLET PO SCH (08:37)
[2016-06-28] MEDS: amLODIPine 5 MG TAB PO SCH ×2 (08:38→21:53)
[2016-06-28] MEDS: PANTOPRAZOLE 40MG TAB (PROTONIX) PO SCH (08:38)
[2016-06-28] MEDS: DOCUSATE SODIUM 100 MG CAP PO SCH ×2 (08:38→21:00)
[2016-06-28 14:00] VITALS: BP 148/80
[2016-06-28 20:00] VITALS: BP 145/67
[2016-06-28] MEDS: SENNA 8.6 MG TAB (SENOKOT) PO SCH (21:00)
[2016-06-28] MEDS: FINASTERIDE 5 MG TAB PO SCH (21:53)
[2016-06-29] MEDS: **hydrALAZINE** 10 MG TAB PO SCH ×4 (00:05→17:55)
[2016-06-29 06:00] VITALS: BP 161/75
[2016-06-29] MEDS: LACTOBACILLUS ACIDOPHILUS CAP (BACID) PO SCH ×3 (08:52→21:20)
[2016-06-29] MEDS: CHLORTHALIDONE 12.5MG PER 1/2 TABLET PO SCH (08:52)
[2016-06-29] MEDS: amLODIPine 5 MG TAB PO SCH (08:52)
[2016-06-29] MEDS: PANTOPRAZOLE 40MG TAB (PROTONIX) PO SCH (08:52)
[2016-06-29] MEDS: METOPROLOL SUCC *XL* 25MG TAB (TopROL *XL*) PO SCH ×2 (08:52→21:20)
[2016-06-29] MEDS: DOCUSATE SODIUM 100 MG CAP PO SCH ×2 (08:53→21:20)
[2016-06-29 11:08] VITALS: BP 143/61
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
[2016-06-29 14:00] VITALS: BP 143/65
[2016-06-29 17:54] VITALS: BP 161/70
[2016-06-29 20:00] VITALS: BP 103/47
[2016-06-29] MEDS: SENNA 8.6 MG TAB (SENOKOT) PO SCH (21:12)
[2016-06-29] MEDS: FINASTERIDE 5 MG TAB PO SCH (21:20)
[2016-06-30] MEDS: **hydrALAZINE** 10 MG TAB PO SCH ×3 (00:02→12:20)
[2016-06-30 05:15] VITALS: BP 157/77
[2016-06-30] MEDS: DOCUSATE SODIUM 100 MG CAP PO SCH (07:47)
[2016-06-30] MEDS: PANTOPRAZOLE 40MG TAB (PROTONIX) PO SCH (07:47)
[2016-06-30] MEDS: CHLORTHALIDONE 12.5MG PER 1/2 TABLET PO SCH (07:47)
[2016-06-30] MEDS: LACTOBACILLUS ACIDOPHILUS CAP (BACID) PO SCH (07:47)
[2016-06-30] MEDS: METOPROLOL SUCC *XL* 25MG TAB (TopROL *XL*) PO SCH (07:48)
[2016-06-30 07:50] LABS: MEAN CORPUSCULAR HEMOGLOBIN 30.9 pg (27.0-33.0); MEAN CORPUSCULAR HGB CONC 35.3 g/dl (32.0-36.5); MEAN CORPUSCULAR VOLUME 87.5 fl (80.0-96.0); RED CELL DISTRIBUTION WIDTH 12.6 % (11.5-14.5); WHITE BLOOD COUNT 5.1 K/mm3 (4.0-10.0)
[2016-06-30 07:54] LABS: CALCIUM LEVEL 8.8 MG/DL (8.8-10.2); CREATININE FOR GFR 1.27 MG/DL (0.70-1.30); GLOMERULAR FILTRATION RATE 56.8 (>35); POTASSIUM SERUM 3.7 MEQ/L (3.5-5.1)
[2016-06-30] MEDS: amLODIPine 5 MG TAB PO SCH (09:21)
[2016-06-30] MEDS ORDERED: RISATAB3 PO (10:00)
[2016-06-30] MEDS ORDERED: AMLO5TAB2 PO (10:00)
[2016-06-30] MEDS ORDERED: MAPA325T2 PO (10:00)
[2016-06-30] MEDS ORDERED: METO25TA74 PO (10:00)
[2016-06-30] MEDS ORDERED: HYDR10TAB PO (10:00)
[2016-06-30] MEDS ORDERED: FINA5TAB2 PO (10:00)
[2016-06-30] MEDS ORDERED: COLA100C PO (10:00)
[2016-06-30] MEDS ORDERED: CHLO125TA PO (10:02)
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
[2016-06-30 11:53] VITALS: BP 150/66
[2016-06-30 12:20] VITALS: BP 150/66
== END 2016-06-30 13:50 | disposition home health service (06) | DRG 57 ==
LOC: M PM&R 11:50
PROVIDERS: ADMIT Physical Medicine & Rehabilitation; ATTEND Physical Medicine & Rehabilitation
DX: I69.254 Hemiplegia and hemiparesis following other nontraumatic intracranial hemorrhage affecting left non-dominant side (principal); N39.0 Urinary tract infection, site not specified; N17.9 Acute kidney failure, unspecified; E46 Unspecified protein-calorie malnutrition; I12.9 Hypertensive chronic kidney disease with stage 1 through stage 4 chronic kidney disease, or unspecified chronic kidney disease; I25.10 Atherosclerotic heart disease of native coronary artery without angina pectoris; I48.91 Unspecified atrial fibrillation; D64.9 Anemia, unspecified; F17.210 Nicotine dependence, cigarettes, uncomplicated; K21.9 Gastro-esophageal reflux disease without esophagitis; N40.0 Benign prostatic hyperplasia without lower urinary tract symptoms; R42 Dizziness and giddiness; N18.3 Chronic kidney disease, stage 3 (moderate); Z95.5 Presence of coronary angioplasty implant and graft; Z79.899 Other long term (current) drug therapy; Z79.01 Long term (current) use of anticoagulants; R26.9 Unspecified abnormalities of gait and mobility; B96.20 Unspecified Escherichia coli [E. coli] as the cause of diseases classified elsewhere; D72.829 Elevated white blood cell count, unspecified; Z79.82 Long term (current) use of aspirin; M25.552 Pain in left hip

== ENCOUNTER → 2016-08-12 | Outpatient (CLI) | payer MEDICARE ==
[~2016-08-12] MED LIST changes: +CHLO125TA PO; +COLA100C PO; +MAPA325T2 PO; +RISATAB3 PO
--- NOTE | 2016-08-12 11:05 | REP ---
CT HEAD WITHOUT CONTRAST: HISTORY: Head injury. COMPARISON: 06/05/2016. An area of decreased attenuation is present in the right insula. This represents encephalomalacia secondary to a previous intraparenchymal hemorrhage. Areas of decreased attenuation are present in the right internal capsule and left thalamus. These represent old lacunar infarctions. Areas of decreased attenuation are present in the periventricular and subcortical white matter. This represents small vessel ischemic disease. There is no intraparenchymal hemorrhage, mass or midline shift. The ventricular system and cortical sulci as well as subarachnoid space in the posterior fossa are dilated consistent with moderate volume loss. There is no extracerebral collection. There is no fracture. The mastoid air cells are under developed. The visualized sinuses are clear. IMPRESSION: 1. Right insular encephalomalacia. 2. Old right internal capsule and left thalamic lacunar infarctions. 3. Small vessel ischemic disease. 4. Moderate volume loss. Signed by Tigre Sy MD 08/12/2016 12:05 P
== END ==
LOC: M RAD 10:13
PROVIDERS: ATTEND Family Medicine
DX: I67.89 Other cerebrovascular disease (principal)

== ENCOUNTER 2016-09-30 09:29 | Inpatient (IN) | payer MEDICARE ==
[~2016-09-30] VITALS: Ht 175.3 cm; Wt 89.5 kg
[~2016-09-30 09:29] MED LIST changes: -COLA100C PO; +COLA100C3 PO
[2016-09-30] MEDS ORDERED: TROS20TA3 PO (09:58)
[2016-09-30] MEDS ORDERED: ACID1CAP PO (09:58)
[2016-09-30] MEDS ORDERED: RANI1TAB6 PO (09:58)
[2016-09-30] MEDS ORDERED: NS 500 ML IV ONE (10:15)
[2016-09-30 10:33] LABS: BASO % 0.5 % (0.0-1.0); EOS # 0.2 K/mm3 (0.0-0.50); EOS % 2.8 % (0.0-3.0); LARGE UNSTAINED CELL # 0.1 K/mm3 (0.0-0.4); LARGE UNSTAINED CELL % 0.9 % (0.0-4.0); LYMPH # 1.1 K/mm3 (1.5-4.5); LYMPH % 15.9 % (24.0-44.0); MEAN CORPUSCULAR HEMOGLOBIN 29.7 pg (27.0-33.0); MEAN CORPUSCULAR VOLUME 87.5 fl (80.0-96.0); MONO # 0.3 K/mm3 (0.0-0.8); MONO % 4.6 % (0.0-5.0); NEUTROPHILS # 5.1 K/mm3 (1.8-7.7); NEUTROPHILS % 75.2 % (36.0-66.0); PLATELET COUNT, AUTOMATED 148 k/mm3 (150-450); RED CELL DISTRIBUTION WIDTH 13.6 % (11.5-14.5); WHITE BLOOD COUNT 6.8 K/mm3 (4.0-10.0)
[2016-09-30 10:40] LABS: INR 1.04
[2016-09-30 10:49] LABS: ANION GAP 8 MEQ/L (8-16); BLOOD UREA NITROGEN 22 MG/DL (7-18); CALCIUM LEVEL 9.2 MG/DL (8.8-10.2); CARBON DIOXIDE LEVEL 30 MEQ/L (21-32); CHLORIDE LEVEL 101 MEQ/L (98-107); CREATININE FOR GFR 1.25 MG/DL (0.70-1.30); GLOMERULAR FILTRATION RATE 57.9 (>35); GLUCOSE, FASTING 101 MG/DL (83-110); POTASSIUM SERUM 3.5 MEQ/L (3.5-5.1); SODIUM LEVEL 139 MEQ/L (136-145)
--- NOTE | 2016-09-30 10:50 | REP ---
NONCONTRAST HEAD CT STUDY: HISTORY: CVA. Comparison head CT study is from August 12, 2016. CT FINDINGS: Digital lateral lockstitch cup setter radiograph is unremarkable. Bone window settings demonstrate an intact bony calvarium. Visualized paranasal sinuses are clear. There is moderate vascular calcification in the distal carotid and vertebral arteries bilaterally. There is diffuse moderate cerebral atrophy again seen. Fairly extensive small vessel atherosclerotic changes are seen. There are old lacunar infarcts in the basal ganglia bilaterally as before. There is no evidence of intracranial hemorrhage. No acute infarction is seen. No mass or midline shift is observed. IMPRESSION: Diffuse moderate atrophy. Old lacunar infarcts one on each side. Small vessel atherosclerotic changes. No acute intracranial abnormality. Signed by Rohan Richardson MD 09/30/2016 02:36 P
--- NOTE | 2016-09-30 10:51 | REP ---
AP PORTABLE CHEST: 09/30/2016 COMPARISON: 06/03/2016, 08/06/2015. CLINICAL HISTORY: CVA. Slight elevation of the right diaphragm compared to the left with some underlying interstitial fibrosis. There is a tortuous calcified aorta and pulmonary artery hypertension. Heavier fibrotic changes in the bases and elsewhere with some crowded markings due to much lower level of inflation of the previous study. No faustino edema, gross effusion or dense consolidation. Borderline heart size. Degenerative changes of the AC and glenohumeral joints as well as the spine. No free air. IMPRESSION: 1. Tortuous calcified aorta and some underlying COPD and fibrosis. Lesser degree of inflation with crowded markings in the bases, right greater than left. Slight elevation of the right diaphragm. 2. No dense consolidation, faustino edema or gross cardiomegaly , but the heart size is borderline, allowing for portable technique and degree of inflation. Signed by Shant Ledesma MD 09/30/2016 03:30 P
[2016-09-30 12:44] VITALS: O2SAT 97
[2016-09-30] MEDS ORDERED: FINA5TAB2 PO (13:15)
[2016-09-30] MEDS ORDERED: RANI1TAB38 PO (13:15)
[2016-09-30] MEDS ORDERED: METO25TA74 PO (13:15)
[2016-09-30] MEDS ORDERED: DOCU100C PO (13:15)
[2016-09-30] MEDS ORDERED: AMLO5TAB2 PO (13:15)
[2016-09-30] MEDS ORDERED: RISATAB3 PO (13:15)
[2016-09-30] MEDS ORDERED: HYDR10TAB PO (13:15)
[2016-09-30] MEDS ORDERED: CHLO125TA PO (13:15)
[2016-09-30] MEDS ORDERED: SYST1SOL OU (13:16)
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
[2016-09-30] MEDS ORDERED: POLYVINYL ALCOHOL OPHTH SOLN 15 ML(LIQUITEARS) OU PRN (15:30)
[2016-09-30 16:50] VITALS: BP 204/88
[2016-09-30] MEDS: LACTOBACILLUS ACIDOPHILUS CAP (BACID) PO SCH (17:29)
[2016-09-30] MEDS: amLODIPine 5 MG TAB PO SCH (17:29)
[2016-09-30] MEDS ORDERED: **hydrALAZINE** 10 MG TAB PO SCH (18:00)
[2016-09-30 20:00] VITALS: BP 129/62
[2016-09-30] MEDS: FAMOTIDINE 20 MG TAB PO SCH (21:52)
[2016-09-30] MEDS: DOCUSATE SODIUM 100 MG CAP PO SCH (21:52)
[2016-09-30] MEDS: FINASTERIDE 5 MG TAB PO SCH (21:52)
[2016-09-30] MEDS: METOPROLOL SUCC *XL* 25MG TAB (TopROL *XL*) PO SCH (21:53)
[2016-09-30] MEDS: TROSPIUM 20 MG TAB PO SCH (23:44)
[2016-09-30 23:59] VITALS: BP 178/74
[2016-10-01] VITALS (8 sets, daily range): BP systolic 150–187; BP diastolic 64–86
--- NOTE | 2016-10-01 01:40 | REPUSA ---
CLINICAL HISTORY: Right-sided weakness. TECHNIQUE: Multiple axial CT images were obtained through the brain without IV contrast material. COMMENTS: Comparison to the prior exam on 11/04/2015. There is normal configuration of sella turcica. There are no intra or extra-axial collections. There is no mass effect or midline shift. There is no evidence of hematoma formation. No hydrocephalus is p resent. The ventricles are symmetrical. No abnormal calcifications are present. There is diffuse age-appropriate cerebellar and cerebral atrophy with proportionally dilated ventricl es and cortical sulci. There are bilateral periventricular and subcortical white matter hypolucencies compatible with mild c hronic microvascular disease. Otherwise, no significant focal abnormalities are seen either in the posterior fossa or supratentoria l compartment. IMPRESSION: 1. Age-appropriate cerebellar and cerebral atrophy. 2. Mild chronic microvascular disease. 3. No evidence of acute intracranial pathology. No change from 09/30/2016. Thank you for your kind referral of this patient.
--- NOTE | 2016-10-01 04:30 | REPUSA ---
CLINICAL HISTORY: Suspected cerebrovascular accident TECHNIQUE: Three dimensional [id number] angiography is performed of the sol[place] of [place]. The [place] dy was performed without IV contrast agent. FINDINGS: Moderate narrowing of the proximal M1 segment of the right middle cerebral artery. Diffuse irregularity of the solomon of [place] and its branches suggestive of atherosclerosis. Findings are mor e prominent at the level of the cavernous portions of the internal carotid arteries. The supraclinoid portions of the internal carotid arteries are of normal shape. The normal bifurcation is seen. The r emaining segments of the middle cerebral arteries are unremarkable in appearance. The posterior circu lation is visualized and shows no evidence of occlusion or aneurysm formation. The basilar tip is see n and shows no aneurysm formation. IMPRESSION: Atherosclerosis. Moderate narrowing of the M1 segment of the right middle cerebral artery. Thank you for your kind referral of this patient.
--- NOTE | 2016-10-01 04:40 | REPUSA ---
CLINICAL HISTORY: Cerebrovascular accident. TECHNIQUE: MRI of the brain was performed utilizing multiple sequences in axial, coronal and sagittal planes without IV contrast material. Comparison to the CT scan performed on 10/01/2016. COMMENTS: 1.1x0.5 cm (anteroposterior and posterior dimensions respectively) acute/subacute ischemic focus in t he mid aspect of the right rose radiata. Associated restricted diffusion. The sella and parasellar region are unremarkable in appearance. The corpus callosum and cerebellar to nsils are of normal configuration and position. There are no intra or extra- axial collections. There is no mass effect or midline shift. There is no evidence of hematoma formation. There is no hydrocep halus. The visualized arterial structures demonstrate normal-appearing flow voids. The seventh and eighth ne rve bundles are visualized and are unremarkable in appearance. Numerous confluent foci of T2/FLAIR hyperintensity are noted in the bilateral periventricular and sub cortical white matter compatible with severe chronic white matter ischemic changes. Generalized proportionate dilatation of ventricles and sulci is present compatible with age-appropria te parenchymal atrophy. Mild chronic mucosal inflammatory changes of the ethmoid air cells. IMPRESSION: 1. Positive for 1.1x0.5 cm (anteroposterior and posterior dimensions respectively) acute/subacute isc hemic focus in the mid aspect of the right rose radiata. Associated restricted diffusion. No midlin e shift or brain herniation. 2. Generalized age-appropriate parenchymal atrophy. 3. Severe chronic white matter microvascular ischemic changes. 4. Hemosiderin deposits in the right external capsule from remote intraparenchymal hemorrhage. Thank you for your kind referral of this patient.
[2016-10-01] MEDS ORDERED: ASPIRIN 81 MG ENTERIC TAB PO ONE (05:15)
[2016-10-01] MEDS ORDERED: **hydrALAZINE** 10 MG TAB PO SCH (06:00)
[2016-10-01] MEDS: ATORVASTATIN 20 MG TAB PO SCH ×2 (06:14→21:09)
[2016-10-01 08:08] LABS: MEAN CORPUSCULAR HEMOGLOBIN 29.2 pg (27.0-33.0); MEAN CORPUSCULAR HGB CONC 33.7 g/dl (32.0-36.5); MEAN CORPUSCULAR VOLUME 86.6 fl (80.0-96.0); RED CELL DISTRIBUTION WIDTH 13.7 % (11.5-14.5); WHITE BLOOD COUNT 5.2 K/mm3 (4.0-10.0)
[2016-10-01 08:33] LABS: ALBUMIN 3.5 GM/DL (3.2-5.2); ALBUMIN/GLOBULIN RATIO 1.21 (1.00-1.93); ALKALINE PHOSPHATASE 64 U/L (45-117); ALT/SGPT 16 U/L (12-78); ANION GAP 9 MEQ/L (8-16); AST/SGOT 17 U/L (15-37); BILIRUBIN,TOTAL 0.5 MG/DL (0.2-1.0); BLOOD UREA NITROGEN 19 MG/DL (7-18); CALCIUM LEVEL 8.7 MG/DL (8.8-10.2); CARBON DIOXIDE LEVEL 27 MEQ/L (21-32); CHLORIDE LEVEL 101 MEQ/L (98-107); GLOMERULAR FILTRATION RATE > 60.0 (>35); GLUCOSE, FASTING 101 MG/DL (83-110); MAGNESIUM LEVEL 2.1 MG/DL (1.8-2.4); POTASSIUM SERUM 3.5 MEQ/L (3.5-5.1); SODIUM LEVEL 137 MEQ/L (136-145); TOTAL PROTEIN 6.4 GM/DL (6.4-8.2)
--- NOTE | 2016-10-01 08:59 | IPNPDOC ---
Subjective Date Seen The patient was seen on 10/01/16. Subjective Chief Complaint/HPI The patient is a 89-year-old male admitted with a reason for visit of Weakness. General: Reports: Fatigue, Denies: Chills, Malaise, Night Sweats Constitutional: Reports: Malaise, Denies: Chills, Fatigue, Fever, Night Sweats, Weakness Eyes: Denies: Conjunctivae inflammation, Eyelid inflammation, Pain, Redness, Vision change ENT: Denies: Ear Pain, Head Aches Skin: Denies: Rash Pulmonary: Denies: Cough, Dyspnea, Pleuritic Chest Pain Cardiovascular: Reports: Lt Headedness (improved from admission), Denies: Chest Pain, Edema, Orthopnea, Palpitations Gastrointestinal: Denies: Abdominal Pain, Constipation, Diarrhea, Nausea, Vomiting Genitourinary: Denies: Dysuria Neurological: Denies: Numbness, Weakness Psych: Reports: Mood Normal Objective Physical Examination General Exam: Positive: Alert, Cooperative, No Acute Distress Eye Exam: Positive: Conjunctiva & lids normal, EOMI, Negative: Ptosis, Sclera icteric ENT Exam: Positive: Atraumatic, Mucous membr. moist/pink, Nares Patent, Pharynx Normal, Tongue Midline, Negative: Pharyngeal Edema Neck Exam: Positive: Supple Chest Exam: Positive: Clear to auscultation, Negative: Rales, Rhonchi, Wheezing Heart Exam: Positive: Normal S1, Normal S2, Rate Normal, Negative: Gallops, Murmurs Telemetry: Positive: No significant arrhythmia Abdomen Exam: Positive: Normal bowel sounds, Soft, Negative: BS Hyperactive, BS Hypoactive, Hepatospenomegaly, Tenderness Extremity Exam: Negative: Clubbing, Cyanosis, Edema Skin Exam: Positive: Nl turgor and temperature Psych Exam: Positive: Mental status NL Assessment /Plan Problems (1) Stroke Status: Acute Response to Treatment: Stable Problem Text: Stable Brain MRI showed 1.1 x .5 cm ischemic focus in right rose radiata neurology on consult-appreciate their recommendations (2) A-fib Status: Chronic Response to Treatment: Stable Problem Text: stable rate currently in 60's Coumadin on hold in light of intraparenchymal hemorrhage 05/2016 last PT/INR was 13.7/1.04 repeat PT/INR (3) Hypertension Status: Chronic Response to Treatment: Stable Problem Text: will increase hydralazine from [id number] to home dose [id number] continue hydralazine,metoprolol and norvasc w/ hold parameters home chlorthalidone on hold currently 170/70 (4) Hyperlipidemia Status: Chronic Response to Treatment: Stable Problem Text: continue atorvastatin therapy (5) Coronary heart disease Status: Chronic Response to Treatment: Stable Problem Text: stable s/p stent placement (6) DVT prophylaxis Status: Acute Response to Treatment: Stable Problem Text: SCD/TEDS Plan/VTE VTE Prophylaxis Ordered?: Yes VS[facility]/I&O Vital Signs Date Time Temp Pulse Resp B/P Pulse Ox O2 Delivery O2 Flow Rate FiO2 10/01/16 06:23 170/70 10/01/16 04:00 98.3 60 18 99 Room Air I&O- Last 24 Hours up to 6 AM 10/01/16 06:00 Intake Total 240 ml Output Total 0 ml Balance 240 ml Laboratory Data 24H LABS Laboratory Tests 2 09/30/16 10:12: Activated Partial Thromboplast Time 29.5, Anion Gap 8, White Blood Count 6.8, Red Blood Count 3.98L, Hemoglobin 11.8L, Hematocrit 34.8L, Mean Corpuscular Volume 87.5, Mean Corpuscular Hemoglobin 29.7, Mean Corpuscular Hemoglobin Concent 34.0, Red Cell Distribution Width 13.6, Platelet Count 148L, Neutrophils (%) (Auto) 75.2H, Lymphocytes (%) (Auto) 15.9L, Monocytes (%) (Auto ) 4.6, Eosinophils (%) (Auto) 2.8, Basophils (%) (Auto) 0.5, Neutrophils # (Auto ) 5.1, Lymphocytes # (Auto) 1.1L, Monocytes # (Auto) 0.3, Eosinophils # (Auto) 0.2, Basophils # (Auto) 0.0, Blood Urea Nitrogen 22H, Creatinine 1.25, Sodium Level 139, Potassium Level 3.5, Chloride Level 101, Carbon Dioxide Level 30, Calcium Level 9.2, Total Creatine Kinase 116, Creatine Kinase MB 2.0, Creatine Kinase MB Relative Index 1.72, Glomerular Filtration Rate 57.9, Large Unclassified Cells # 0.1, Large Unclassified Cells % 0.9, Prothromb Time International Ratio 1.04, Prothrombin Time 13.7, Troponin I < 0.02 09/30/16 15:45: Total Creatine Kinase 149, Creatine Kinase MB 2.6, Creatine Kinase MB Relative Index 1.74, Troponin I < 0.02 10/01/16 00:08: Total Creatine Kinase 138, Creatine Kinase MB 1.4, Creatine Kinase MB Relative Index 1.01, Troponin I < 0.02 10/01/16 07:50: Anion Gap 9, Blood Urea Nitrogen 19H, Creatinine 1.20, Sodium Level 137, Potassium Level 3.5, Chloride Level 101, Carbon Dioxide Level 27, Calcium Level 8.7L, Total Creatine Kinase 144, Creatine Kinase MB 2.0, Creatine Kinase MB Relative Index 1.38, Glomerular Filtration Rate > 60.0, Troponin I < 0.02, Aspartate Amino Transf (AST/SGOT) 17, Alanine Aminotransferase (ALT/SGPT) 16, Alkaline Phosphatase 64, Total Bilirubin 0.5, Total Protein 6.4, Albumin 3.5, Albumin/Globulin Ratio 1.21, Magnesium Level 2.1 CBC/BMP Laboratory Tests 09/30/16 10:12 Calcium Level 9.2, Total Creatine Kinase 116, Red Blood Count 3.98 L, Mean Corpuscular Volume 87.5, Mean Corpuscular Hemoglobin 29.7, Mean Corpuscular Hemoglobin Concent 34.0, Red Cell Distribution Width 13.6, Neutrophils (%) (Auto ) 75.2 H, Lymphocytes (%) (Auto) 15.9 L, Monocytes (%) (Auto) 4.6, Eosinophils ( %) (Auto) 2.8, Basophils (%) (Auto) 0.5, Neutrophils # (Auto) 5.1, Lymphocytes # (Auto) 1.1 L, Monocytes # (Auto) 0.3, Eosinophils # (Auto) 0.2, Basophils # ( Auto) 0.0 10/01/16 07:50 Calcium Level 8.7 L, Total Creatine Kinase 144, Red Blood Count 3.94 L, Mean Corpuscular Volume 86.6, Mean Corpuscular Hemoglobin 29.2, Mean Corpuscular Hemoglobin Concent 33.7, Red Cell Distribution Width 13.7, Aspartate Amino Transf (AST/SGOT) 17, Alanine Aminotransferase (ALT/SGPT) 16, Alkaline Phosphatase 64, Total Bilirubin 0.5, Total Protein 6.4, Albumin 3.5 GME ATTESTATION GME ATTESTATION My preceptor for this patient encounter was physically present in the building during the encounter and was fully available. As needed, all aspects of the patient interview, examination, medical decision making process, and medical care plan development were reviewed and approved by the preceptor. Preceptor is aware and concurs with the plan as stated in the body of this note and will attest to such by his/her cosignature. MARIA E SANTOS DO Oct 01, 2016 08:59
[2016-10-01] MEDS: DOCUSATE SODIUM 100 MG CAP PO SCH ×2 (09:00→21:09)
[2016-10-01] MEDS: LACTOBACILLUS ACIDOPHILUS CAP (BACID) PO SCH (09:12)
[2016-10-01] MEDS: METOPROLOL SUCC *XL* 25MG TAB (TopROL *XL*) PO SCH ×2 (09:15→21:09)
[2016-10-01] MEDS: amLODIPine 5 MG TAB PO SCH (09:15)
[2016-10-01 09:54] LABS: INR 1.03
[2016-10-01] MEDS: **hydrALAZINE** 10 MG TAB PO SCH ×2 (11:58→17:53)
--- NOTE | 2016-10-01 12:42 | REP ---
MR ANGIOGRAPHY OF THE CAROTIDS WITHOUT AND WITH IV GADOLINIUM: HISTORY: New CVA, history of hemorrhagic CVA. Gadolinium enhancement dose: 25 mL of intravenous ProHance is given. TECHNIQUE: 2D [id number] pre-gadolinium enhanced MR angiography and 3D post-gadolinium enhanced MR angiography is acquired. Maximal intensity projection images are generated and reviewed and source images are reviewed. MR ANGIOGRAPHIC FINDINGS: The great vessels are tortuous but intact. The left common carotid artery is tortuous but widely patent. Right common carotid artery is widely patent. There is minimal right carotid and left carotid bulb plaquing but no high-grade ICA stenosis is seen on either side. The vertebral arteries are asymmetric. The left vertebral artery is quite small compared to the right and is not seen beyond the mid cervical spine. There is atherosclerotic irregularity of the distal segment of the right distal vertebral artery. Some atherosclerotic irregularity is seen in the basilar artery. There is mild atherosclerotic irregularity of the distal internal carotid arteries bilaterally. No high-grade stenosis is seen. The visualized intracranial arteries are unremarkable. IMPRESSION: No high-grade internal carotid artery stenosis. Some distal ICA mild atherosclerotic changes. Very small left vertebral artery not seen beyond the mid cervical segment. Atherosclerotic irregularity of the distal vertebral artery on the right and the basilar artery. Signed by Rohan Richardson MD 10/01/2016 01:10 P
[2016-10-01] MEDS ORDERED: SLF 3 ML SYR IV PRN (16:30)
[2016-10-01] MEDS ORDERED: ATORVASTATIN 20 MG TAB PO SCH (21:00)
[2016-10-01] MEDS: TROSPIUM 20 MG TAB PO SCH (21:09)
[2016-10-01] MEDS: FINASTERIDE 5 MG TAB PO SCH (21:09)
[2016-10-01] MEDS: FAMOTIDINE 20 MG TAB PO SCH (21:09)
[2016-10-01] MEDS: SLF 3 ML SYR IV SCH (21:10)
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
[2016-10-02] MEDS: **hydrALAZINE** 10 MG TAB PO SCH ×4 (00:35→17:49)
[2016-10-02 04:00] VITALS: BP 153/66
[2016-10-02 06:01] LABS: MEAN CORPUSCULAR HEMOGLOBIN 29.6 pg (27.0-33.0); MEAN CORPUSCULAR HGB CONC 33.9 g/dl (32.0-36.5); MEAN CORPUSCULAR VOLUME 87.6 fl (80.0-96.0); RED CELL DISTRIBUTION WIDTH 13.7 % (11.5-14.5); WHITE BLOOD COUNT 6.4 K/mm3 (4.0-10.0)
[2016-10-02 06:10] LABS: ALBUMIN 3.3 GM/DL (3.2-5.2); ALBUMIN/GLOBULIN RATIO 1.03 (1.00-1.93); BILIRUBIN,TOTAL 0.4 MG/DL (0.2-1.0); CALCIUM LEVEL 8.5 MG/DL (8.8-10.2); CREATININE FOR GFR 1.24 MG/DL (0.70-1.30); GLOMERULAR FILTRATION RATE 58.4 (>35); MAGNESIUM LEVEL 1.9 MG/DL (1.8-2.4); POTASSIUM SERUM 3.5 MEQ/L (3.5-5.1); TOTAL PROTEIN 6.5 GM/DL (6.4-8.2)
[2016-10-02] MEDS: SLF 3 ML SYR IV SCH ×3 (06:24→20:31)
[2016-10-02 08:00] VITALS: BP 148/76
--- NOTE | 2016-10-02 09:04 | IPNPDOC ---
Subjective Date Seen The patient was seen on 10/02/16. Subjective Chief Complaint/HPI The patient is a 89-year-old male admitted with a reason for visit of Weakness. General: Denies: Chills, Night Sweats Constitutional: Denies: Chills, Fever, Malaise Eyes: Denies: Conjunctivae inflammation, Eyelid inflammation, Pain, Vision change ENT: Denies: Head Aches Skin: Denies: Lesions, Rash Pulmonary: Denies: Cough, Dyspnea Cardiovascular: Denies: Chest Pain, Edema, Lt Headedness, Orthopnea, Palpitations, Paroxysmal Noc. Dyspnea Gastrointestinal: Denies: Abdominal Pain, Constipation, Diarrhea, Nausea, Vomiting Musculoskeletal: Reports: Other Symptoms (right UE weakness) Neurological: Reports: Weakness (right UE) Psych: Reports: Mood Normal Objective Physical Examination General Exam: Positive: Alert, Cooperative, No Acute Distress Eye Exam: Positive: Conjunctiva & lids normal, EOMI, Negative: Ptosis, Sclera icteric ENT Exam: Positive: Atraumatic, Mucous membr. moist/pink, Nares Patent, Pharynx Normal, Tongue Midline, Negative: Pharyngeal Edema Neck Exam: Positive: Supple Chest Exam: Positive: Clear to auscultation, Negative: Rales, Rhonchi, Wheezing Heart Exam: Positive: Normal S1, Normal S2, Rate Normal, Negative: Gallops, Murmurs Telemetry: Positive: No significant arrhythmia Abdomen Exam: Positive: Normal bowel sounds, Soft, Negative: BS Hyperactive, BS Hypoactive, Hepatospenomegaly, Tenderness Extremity Exam: Negative: Clubbing, Cyanosis, Edema Skin Exam: Positive: Nl turgor and temperature Psych Exam: Positive: Mental status NL Assessment /Plan Problems (1) Stroke Status: Acute Response to Treatment: Stable Problem Text: Stable Brain MRI showed 1.1 x .5 cm ischemic focus in right rose radiata neurology on consult-recommend BP goal of 140-180 then to normalize, continue ASA 81 mg PO QD, hold off on further anticoagulation at this time as per conversation with neurologist & patient's family. OT/PT. appreciate their recommendations. (2) A-fib Status: Chronic Response to Treatment: Stable Problem Text: stable rate currently in 60's Coumadin on hold in light of intraparenchymal hemorrhage 05/2016 last PT/INR was 13.7/1.04 repeat PT/INR (3) Hypertension Status: Chronic Response to Treatment: Stable Problem Text: will increase hydralazine from [id number] to home dose [id number] continue hydralazine,metoprolol and norvasc w/ hold parameters home chlorthalidone on hold currently 148/76 (4) Hyperlipidemia Status: Chronic Response to Treatment: Stable Problem Text: continue atorvastatin therapy (5) Coronary heart disease Status: Chronic Response to Treatment: Stable Problem Text: stable s/p stent placement (6) DVT prophylaxis Status: Acute Response to Treatment: Stable Problem Text: SCD/TEDS Plan/VTE VTE Prophylaxis Ordered?: Yes VS, I&O, 24H, Fishbone Vital Signs/I&O Vital Signs Date Time Temp Pulse Resp B/P Pulse Ox O2 Delivery O2 Flow Rate FiO2 10/02/16 08:00 98.0 72 18 148/76 94 Room Air I&O- Last 24 Hours up to 6 AM 10/02/16 06:00 Intake Total 1160 ml Output Total 475 ml Balance 685 ml Laboratory Data 24H LABS Laboratory Tests 2 10/01/16 09:32: Prothromb Time International Ratio 1.03, Prothrombin Time 13.6 10/01/16 12:06: Urine Amorphous Sediment , Urine Appearance CLEAR, Urine Color YELLOW, Urine pH 6.0, Urine Specific Belt 1.018, Urine Protein NEGATIVE, Urine Glucose (UA) NEGATIVE, Urine Ketones NEGATIVE, Urine Urobilinogen 0.2, Urine Bilirubin NEGATIVE, Urine Leukocyte Esterase NEGATIVE, Urine Bacteria (Auto) NEGATIVE, Urine Blood NEGATIVE, Urine Calcium Carbonate Cryst(Auto) , Urine Calcium Oxalate Cryst (Auto) , Urine Calcium Phosphate Pennie (Auto) , Urine Cellular Casts , Urine Cystine Crystals , Urine Granular Casts (Auto) , Urine Hyaline Casts (Auto) 0, Urine Leucine Crystals , Urine Mucus (Auto) SMALL, Urine Nitrite NEGATIVE, Urine Oval Fat Bodies (Auto) , Urine RBC (Auto) 2, Urine Renal Epithelial Cells , Urine Sperm (Auto) , Urine Squamous Epithelial Cells 0 , Urine Transitional Epithelial Cells , Urine Trichomonas (Auto) , Urine Triple Phosphate Cryst (Auto) , Urine Tyrosine Crystals , Urine Uric Acid Crystals ( Auto) , Urine WBC (Auto) 1, Urine Waxy Casts (Auto) , Urine Yeast-Like Cells ( Auto) 10/02/16 05:29: Blood Urea Nitrogen 21H, Creatinine 1.24, Sodium Level 135L, Potassium Level 3.5 , Chloride Level 100, Carbon Dioxide Level 28, Calcium Level 8.5L, Aspartate Amino Transf (AST/SGOT) 17, Alanine Aminotransferase (ALT/SGPT) 16, Alkaline Phosphatase 58, Total Bilirubin 0.4, Total Protein 6.5, Albumin 3.3, Albumin/ Globulin Ratio 1.03, Anion Gap 7L, Glomerular Filtration Rate 58.4, Magnesium Level 1.9 CBC/BMP Laboratory Tests 10/02/16 05:29 Calcium Level 8.5 L, Aspartate Amino Transf (AST/SGOT) 17, Alanine Aminotransferase (ALT/SGPT) 16, Alkaline Phosphatase 58, Total Bilirubin 0.4, Total Protein 6.5, Albumin 3.3, Red Blood Count 3.78 L, Mean Corpuscular Volume 87.6, Mean Corpuscular Hemoglobin 29.6, Mean Corpuscular Hemoglobin Concent 33.9 , Red Cell Distribution Width 13.7 Microbiology Microbiology 10/01/16 Urine Culture - Final, Complete GME ATTESTATION GME ATTESTATION My preceptor for this patient encounter was physically present in the building during the encounter and was fully available. As needed, all aspects of the patient interview, examination, medical decision making process, and medical care plan development were reviewed and approved by the preceptor. Preceptor is aware and concurs with the plan as stated in the body of this note and will attest to such by his/her cosignature. MARIA E SANTOS DO Oct 02, 2016 09:04
[2016-10-02] MEDS: DOCUSATE SODIUM 100 MG CAP PO SCH ×2 (09:29→20:30)
[2016-10-02] MEDS: LACTOBACILLUS ACIDOPHILUS CAP (BACID) PO SCH (09:29)
[2016-10-02] MEDS: amLODIPine 5 MG TAB PO SCH (09:29)
[2016-10-02] MEDS: METOPROLOL SUCC *XL* 25MG TAB (TopROL *XL*) PO SCH ×2 (09:29→20:29)
[2016-10-02] MEDS: ASPIRIN 81 MG ENTERIC TAB PO SCH (09:29)
[2016-10-02 12:00] VITALS: BP 142/78
--- NOTE | 2016-10-02 15:56 | ECHO ---
DATE OF PROCEDURE: 10/01/2016 REFERRING PHYSICIAN: Mike Maki MD INDICATION: Acute stroke. HEIGHT: 175 cm WEIGHT: 88 kg 2D MEASUREMENTS: Aortic root: 3.5 cm Left atrium: 3.4 cm Ventricular septum: 1.31 cm Posterior wall; 1.31 cm Left ventricle diastole: 4.2 cm LVOT: 2.3 cm Inferior vena cava: 2.1 cm DOPPLER MEASUREMENTS: Trace aortic regurgitation. Very mild aortic stenosis. Aortic valve velocity: 242 cm/s LVOT velocity: 75.2 cm/s LVOT VTI: 17.5 cm Mitral E velocity: 65.2 cm/s Mitral A velocity: 92.8 cm/s Mitral deceleration time: 405 ms Mild tricuspid regurgitation. Estimated right ventricle systolic pressure 32 mmHg assuming a right atrial pressure of 5 mmHg. MITRAL ANNULAR TISSUE DOPPLER: E prime septal: 5.0 cm/s E prime lateral: 6.5 cm/s DESCRIPTION: Rhythm was predominantly sinus bradycardia. This is a moderately technically difficult echocardiogram. No pericardial effusion. This is a 2D, M-mode, color flow Doppler and pulse wave Doppler examination that included mitral annular tissue Doppler. CONCLUSIONS: 1. Normal left ventricle internal dimensions. Mild concentric left ventricle hypertrophy. Grade 1 AV diastolic dysfunction (impaired relaxation filling pattern). Normal left ventricle (LV) systolic function. Left ventricular ejection fraction (LVEF) of 65% by visual estimate. 2. Severe mitral annular calcification. No mitral stenosis. No mitral regurgitation. 3. Moderate focal thickening and focal calcific deposits of a three-cuspid aortic valve with mild reduction in cusp mobility. Very mild aortic stenosis. Trace aortic regurgitation. 4. Moderate tricuspid valve annular calcification. Mild tricuspid regurgitation. No tricuspid stenosis. 5. Moderately technically difficult echocardiogram.
[2016-10-02 16:00] VITALS: BP 138/76
[2016-10-02 19:38] VITALS: BP 150/68
[2016-10-02] MEDS: FAMOTIDINE 20 MG TAB PO SCH (20:30)
[2016-10-02] MEDS: FINASTERIDE 5 MG TAB PO SCH (20:30)
[2016-10-02] MEDS: TROSPIUM 20 MG TAB PO SCH (20:31)
[2016-10-02] MEDS: ATORVASTATIN 20 MG TAB PO SCH (20:31)
[2016-10-03] VITALS (9 sets, daily range): BP systolic 134–180; BP diastolic 62–80
[2016-10-03] MEDS: **hydrALAZINE** 10 MG TAB PO SCH ×5 (01:19→23:57)
[2016-10-03] MEDS: SLF 3 ML SYR IV SCH ×3 (05:14→21:08)
[2016-10-03 06:02] LABS: MEAN CORPUSCULAR HEMOGLOBIN 29.1 pg (27.0-33.0); MEAN CORPUSCULAR HGB CONC 33.1 g/dl (32.0-36.5); MEAN CORPUSCULAR VOLUME 87.8 fl (80.0-96.0); RED CELL DISTRIBUTION WIDTH 13.8 % (11.5-14.5); WHITE BLOOD COUNT 7.8 K/mm3 (4.0-10.0)
[2016-10-03 06:22] LABS: ALBUMIN 3.2 GM/DL (3.2-5.2); ALKALINE PHOSPHATASE 59 U/L (45-117); ALT/SGPT 16 U/L (12-78); ANION GAP 8 MEQ/L (8-16); AST/SGOT 15 U/L (15-37); BILIRUBIN,TOTAL 0.4 MG/DL (0.2-1.0); BLOOD UREA NITROGEN 22 MG/DL (7-18); CALCIUM LEVEL 8.5 MG/DL (8.8-10.2); CARBON DIOXIDE LEVEL 27 MEQ/L (21-32); CHLORIDE LEVEL 100 MEQ/L (98-107); CREATININE FOR GFR 1.17 MG/DL (0.70-1.30); GLOMERULAR FILTRATION RATE > 60.0 (>35); GLUCOSE, FASTING 103 MG/DL (83-110); MAGNESIUM LEVEL 1.9 MG/DL (1.8-2.4); POTASSIUM SERUM 3.6 MEQ/L (3.5-5.1); SODIUM LEVEL 135 MEQ/L (136-145); TOTAL PROTEIN 6.4 GM/DL (6.4-8.2)
[2016-10-03] MEDS: amLODIPine 10 MG TAB PO SCH (08:40)
[2016-10-03] MEDS: LACTOBACILLUS ACIDOPHILUS CAP (BACID) PO SCH (08:40)
[2016-10-03] MEDS: DOCUSATE SODIUM 100 MG CAP PO SCH ×2 (08:40→21:08)
[2016-10-03] MEDS: METOPROLOL SUCC *XL* 25MG TAB (TopROL *XL*) PO SCH ×2 (08:41→21:08)
[2016-10-03] MEDS: ASPIRIN 81 MG ENTERIC TAB PO SCH (08:41)
--- NOTE | 2016-10-03 09:27 | IPNPDOC ---
Subjective Date Seen The patient was seen on 10/03/16. Subjective Chief Complaint/HPI The patient is a 89-year-old male admitted with a reason for visit of Weakness. General: Denies: Chills Constitutional: Denies: Chills, Malaise Eyes: Denies: Conjunctivae inflammation, Eyelid inflammation, Vision change Pulmonary: Denies: Cough, Dyspnea Cardiovascular: Denies: Chest Pain, Palpitations Gastrointestinal: Denies: Nausea, Vomiting Neurological: Reports: Weakness (right UE , unchanged from day prior) Psych: Reports: Mood Normal Objective Physical Examination General Exam: Positive: Alert, Cooperative, No Acute Distress Eye Exam: Positive: Conjunctiva & lids normal, EOMI, Negative: Ptosis, Sclera icteric ENT Exam: Positive: Atraumatic, Mucous membr. moist/pink, Nares Patent, Pharynx Normal, Tongue Midline, Negative: Pharyngeal Edema Neck Exam: Positive: Supple Chest Exam: Positive: Clear to auscultation, Negative: Rales, Rhonchi, Wheezing Heart Exam: Positive: Normal S1, Normal S2, Rate Normal, Negative: Gallops, Murmurs Telemetry: Positive: No significant arrhythmia Abdomen Exam: Positive: Normal bowel sounds, Soft, Negative: BS Hyperactive, BS Hypoactive, Hepatospenomegaly, Tenderness Extremity Exam: Negative: Clubbing, Cyanosis, Edema Skin Exam: Positive: Nl turgor and temperature Psych Exam: Positive: Mental status NL Assessment /Plan Problems (1) Stroke Status: Acute Response to Treatment: Stable Problem Text: cardiac rehab in two days to begin for UE weakness of right side Stable Brain MRI showed 1.1 x .5 cm ischemic focus in right rose radiata neurology on consult-recommend BP goal of 140-180 then to normalize, continue ASA 81 mg PO QD, hold off on further anticoagulation at this time as per conversation with neurologist & patient's family. OT/PT. appreciate their recommendations. (2) A-fib Status: Chronic Response to Treatment: Stable Problem Text: stable rate currently in 60's ECHO in house showed: 1. Normal left ventricle internal dimensions. Mild concentric left ventricle hypertrophy. Grade 1 AV diastolic dysfunction (impaired relaxation filling pattern). Normal left ventricle (LV) systolic function. Left ventricular ejection fraction (LVEF) of 65% by visual estimate. 2. Severe mitral annular calcification. No mitral stenosis. No mitral regurgitation. 3. Moderate focal thickening and focal calcific deposits of a three-cuspid aortic valve with mild reduction in cusp mobility. Very mild aortic stenosis. Trace aortic regurgitation. 4. Moderate tricuspid valve annular calcification. Mild tricuspid regurgitation. No tricuspid stenosis. Coumadin on hold in light of intraparenchymal hemorrhage 05/2016 last PT/INR was 13.6/1.03 repeat PT/INR (3) Hypertension Status: Chronic Response to Treatment: Stable Problem Text: increase amlodipine to 20mg PO for tighter BP control continue hydralazine [id number] continue hydralazine,metoprolol and norvasc w/ hold parameters home chlorthalidone on hold (4) Hyperlipidemia Status: Chronic Response to Treatment: Stable Problem Text: continue atorvastatin therapy (5) Coronary heart disease Status: Chronic Response to Treatment: Stable Problem Text: stable s/p stent placement (6) DVT prophylaxis Status: Acute Response to Treatment: Stable Problem Text: SCD/TEDS Plan/VTE VTE Prophylaxis Ordered?: Yes VS, I&O, 24H, [facility] Vital Signs/I&O Vital Signs Date Time Temp Pulse Resp B/P Pulse Ox O2 Delivery O2 Flow Rate FiO2 10/03/16 08:40 57 134/62 10/03/16 08:00 98.3 18 95 Room Air I&O- Last 24 Hours up to 6 AM 10/03/16 06:00 Intake Total 480 ml Output Total 100 ml Balance 380 ml Laboratory Data 24H LABS Laboratory Tests 2 10/03/16 05:29: Blood Urea Nitrogen 22H, Creatinine 1.17, Sodium Level 135L, Potassium Level 3.6 , Chloride Level 100, Carbon Dioxide Level 27, Calcium Level 8.5L, Aspartate Amino Transf (AST/SGOT) 15, Alanine Aminotransferase (ALT/SGPT) 16, Alkaline Phosphatase 59, Total Bilirubin 0.4, Total Protein 6.4, Albumin 3.2, Albumin/ Globulin Ratio 1.00, Anion Gap 8, Glomerular Filtration Rate > 60.0, Magnesium Level 1.9 CBC/BMP Laboratory Tests 10/03/16 05:29 Calcium Level 8.5 L, Aspartate Amino Transf (AST/SGOT) 15, Alanine Aminotransferase (ALT/SGPT) 16, Alkaline Phosphatase 59, Total Bilirubin 0.4, Total Protein 6.4, Albumin 3.2, Red Blood Count 3.99 L, Mean Corpuscular Volume 87.8, Mean Corpuscular Hemoglobin 29.1, Mean Corpuscular Hemoglobin Concent 33.1 , Red Cell Distribution Width 13.8 Microbiology Microbiology 10/01/16 Urine Culture - Final, Complete GME ATTESTATION GME ATTESTATION My preceptor for this patient encounter was physically present in the building during the encounter and was fully available. As needed, all aspects of the patient interview, examination, medical decision making process, and medical care plan development were reviewed and approved by the preceptor. Preceptor is aware and concurs with the plan as stated in the body of this note and will attest to such by his/her cosignature. MARIA E SANTOS DO Oct 03, 2016 09:27
--- NOTE | 2016-10-03 19:51 | ECGEPIP ---
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
[2016-10-03] MEDS: TROSPIUM 20 MG TAB PO SCH (21:07)
[2016-10-03] MEDS: FINASTERIDE 5 MG TAB PO SCH (21:08)
[2016-10-03] MEDS: FAMOTIDINE 20 MG TAB PO SCH (21:08)
[2016-10-03] MEDS: ATORVASTATIN 20 MG TAB PO SCH (21:08)
[2016-10-04 01:59] VITALS: BP 196/100
--- NOTE | 2016-10-04 02:50 | REPUSA ---
CLINICAL HISTORY: Change in mental status. TECHNIQUE: Multiple axial CT images were obtained through the brain without IV contrast material. COMMENTS: There is normal configuration of sella turcica. There are no intra or extra-axial collections. There is no mass effect or midline shift. There is no evidence of hematoma formation. No hydrocephalus is p resent. The ventricles are symmetrical. No abnormal calcifications are present. There is diffuse age-appropriate cerebellar and cerebral atrophy with proportionally dilated ventricl es and cortical sulci. There are bilateral periventricular and subcortical white matter hypolucencies compatible with mild c hronic microvascular disease. Otherwise, no significant focal abnormalities are seen either in the posterior fossa or supratentoria l compartment. IMPRESSION: 1. Age-appropriate cerebellar and cerebral atrophy. 2. Mild chronic microvascular disease. 3. No evidence of acute intracranial pathology. No change from the prior exam on 10/18/2016. Thank you for your kind referral of this patient.
[2016-10-04 03:01] VITALS: BP 150/86
[2016-10-04] MEDS: SLF 3 ML SYR IV SCH ×3 (05:53→22:00)
[2016-10-04] MEDS: **hydrALAZINE** 10 MG TAB PO SCH ×4 (05:53→23:07)
[2016-10-04 06:00] VITALS: BP 146/78
[2016-10-04 06:34] LABS: MEAN CORPUSCULAR HEMOGLOBIN 29.7 pg (27.0-33.0); MEAN CORPUSCULAR HGB CONC 34.3 g/dl (32.0-36.5); MEAN CORPUSCULAR VOLUME 86.7 fl (80.0-96.0); RED CELL DISTRIBUTION WIDTH 13.6 % (11.5-14.5); WHITE BLOOD COUNT 8.4 K/mm3 (4.0-10.0)
[2016-10-04 06:50] LABS: ALBUMIN 3.4 GM/DL (3.2-5.2); ALBUMIN/GLOBULIN RATIO 0.97 (1.00-1.93); ALKALINE PHOSPHATASE 65 U/L (45-117); ALT/SGPT 18 U/L (12-78); ANION GAP 8 MEQ/L (8-16); AST/SGOT 19 U/L (15-37); BILIRUBIN,TOTAL 0.6 MG/DL (0.2-1.0); BLOOD UREA NITROGEN 20 MG/DL (7-18); CALCIUM LEVEL 8.7 MG/DL (8.8-10.2); CARBON DIOXIDE LEVEL 26 MEQ/L (21-32); CHLORIDE LEVEL 99 MEQ/L (98-107); CREATININE FOR GFR 1.13 MG/DL (0.70-1.30); GLOMERULAR FILTRATION RATE > 60.0 (>35); GLUCOSE, FASTING 109 MG/DL (83-110); MAGNESIUM LEVEL 1.8 MG/DL (1.8-2.4); POTASSIUM SERUM 3.7 MEQ/L (3.5-5.1); SODIUM LEVEL 133 MEQ/L (136-145); TOTAL PROTEIN 6.9 GM/DL (6.4-8.2)
[2016-10-04] MEDS ORDERED: ONDANSETRON 4MG/2ML VIAL (J2405) As Ordered ONE (08:49)
[2016-10-04] MEDS ORDERED: ONDANSETRON 4MG/2ML VIAL (J2405) IV PRN (09:00)
[2016-10-04] MEDS: DOCUSATE SODIUM 100 MG CAP PO SCH ×2 (09:25→23:07)
[2016-10-04] MEDS: ASPIRIN 81 MG ENTERIC TAB PO SCH (09:25)
[2016-10-04] MEDS: METOPROLOL SUCC *XL* 25MG TAB (TopROL *XL*) PO SCH ×3 (09:26→23:08)
[2016-10-04] MEDS: amLODIPine 10 MG TAB PO SCH (09:26)
[2016-10-04] MEDS: LACTOBACILLUS ACIDOPHILUS CAP (BACID) PO SCH (09:26)
--- NOTE | 2016-10-04 12:57 | IPNPDOC ---
Subjective Date Seen The patient was seen on 10/04/16. Subjective Chief Complaint/HPI The patient is an 89 year old male with a PMHx of intraparencymal hemorrhage (05/2016) with residual L sided weakness, HTN, CAD s/p stent, A. fib (on ASA only), BPH, CKD3, Hearing loss, Chronic vertigo, Hx of UTI and GERD. He presented with weakness / dizziness and was found to have new right sided weakness. He was admitted for a new ischemic stroke. Patient was seen and examined at the bedside. He has not complaints this morning. Objective Physical Examination Other physical findings Vitals (See below) General: Lying in bed, no acute distress, comfortable, AAOx3 HEENT: NC, AT CVS: Irregularly irregular, +S1S2 Lungs: Fair air entry b/l, -w/r/r Abdomen: Soft, ND, NT, +BSx4 Extremities: +PPx4, - Edema, - Calf tenderness Neuro: R upper and lower extremity weakness (07/26), L upper and lower extremity noted at (09/23) Assessment /Plan Problems (1) Stroke Status: Acute Response to Treatment: Stable Problem Text: - presented with weakness on the right side - physical shows only some signs of improvement - MRI Brain 10/01: 1.1 x .5 cm ischemic focus in right rose radiata - Neurology has been consulted - Discussed with family about risks / benefits about full anticoagulation; will avoid full anticoagulation (ie. Warfarin) at this point - c/w ASA 81 - c/w PT / OT - Placement at PM&R tomorrow (2) A-fib Status: Chronic Response to Treatment: Stable Problem Text: - ECHO 09/2016: EF 65%, Severe mitral annular calcification, Trace AR, Moderate TR calcification, mild TR - c/w Metoprolol 25 BID for rate control - not on full anticoagulation since 05/2016 given Hemophagic stroke history - c/w ASA (3) Hypertension Status: Chronic Response to Treatment: Stable Problem Text: - Have completed 72 hours of permissive hypertension (BP control between 140-180s) - Episode of hypertension in 190s yesterday that resolved - c/w Amlodipine at a higher dose (10mg) and Metoprolol 25 BID - Will increase Hydralazine to 30mg Q6H - will continue to monitor and adjust as required (4) Hyperlipidemia Status: Chronic Response to Treatment: Stable Problem Text: - c/w atorvastatin (5) Coronary heart disease Status: Chronic Response to Treatment: Stable Problem Text: - s/p stent placement - c/w ASA, Atorvastatin, Metoprolol (6) DVT prophylaxis Status: Acute Response to Treatment: Stable Problem Text: SCD/TEDS Plan/VTE VTE Prophylaxis Ordered?: Yes Disposition - Will likely be transferred to PM&R unit tomorrow (10/05) VS, I&O, 24H, Fishbone Vital Signs/I&O Vital Signs Date Time Temp Pulse Resp B/P Pulse Ox O2 Delivery O2 Flow Rate FiO2 10/04/16 12:38 150/64 10/04/16 09:26 64 10/04/16 06:00 97.4 19 94 Room Air I&O- Last 24 Hours up to 6 AM 10/04/16 06:00 Intake Total 480 ml Output Total 250 ml Balance 230 ml Laboratory Data 24H LABS Laboratory Tests 2 10/04/16 06:06: Blood Urea Nitrogen 20H, Creatinine 1.13, Sodium Level 133L, Potassium Level 3.7 , Chloride Level 99, Carbon Dioxide Level 26, Calcium Level 8.7L, Aspartate Amino Transf (AST/SGOT) 19, Alanine Aminotransferase (ALT/SGPT) 18, Alkaline Phosphatase 65, Total Bilirubin 0.6, Total Protein 6.9, Albumin 3.4, Albumin/ Globulin Ratio 0.97L, Anion Gap 8, Glomerular Filtration Rate > 60.0, Magnesium Level 1.8 CBC/BMP Laboratory Tests 10/04/16 06:06 Calcium Level 8.7 L, Aspartate Amino Transf (AST/SGOT) 19, Alanine Aminotransferase (ALT/SGPT) 18, Alkaline Phosphatase 65, Total Bilirubin 0.6, Total Protein 6.9, Albumin 3.4, Red Blood Count 3.94 L, Mean Corpuscular Volume 86.7, Mean Corpuscular Hemoglobin 29.7, Mean Corpuscular Hemoglobin Concent 34.3 , Red Cell Distribution Width 13.6 Microbiology Microbiology 10/01/16 Urine Culture - Final, Complete LISA VALERA MD Oct 04, 2016 12:57
[2016-10-04 14:00] VITALS: BP 168/75
[2016-10-04 22:00] VITALS: BP 127/59
[2016-10-04] MEDS: ATORVASTATIN 20 MG TAB PO SCH (23:07)
[2016-10-04] MEDS: TROSPIUM 20 MG TAB PO SCH (23:07)
[2016-10-04] MEDS: FINASTERIDE 5 MG TAB PO SCH (23:08)
[2016-10-04] MEDS: FAMOTIDINE 20 MG TAB PO SCH (23:08)
[2016-10-05] MEDS: SLF 3 ML SYR IV SCH ×3 (05:50→20:54)
[2016-10-05] MEDS: **hydrALAZINE** 10 MG TAB PO SCH ×4 (05:50→23:32)
[2016-10-05 06:00] VITALS: BP 157/71
[2016-10-05 07:19] LABS: MEAN CORPUSCULAR VOLUME 87.8 fl (80.0-96.0); RED CELL DISTRIBUTION WIDTH 13.8 % (11.5-14.5)
[2016-10-05 08:04] LABS: ALBUMIN 3.4 GM/DL (3.2-5.2); ALBUMIN/GLOBULIN RATIO 0.97 (1.00-1.93); ALKALINE PHOSPHATASE 63 U/L (45-117); ALT/SGPT 25 U/L (12-78); ANION GAP 7 MEQ/L (8-16); AST/SGOT 31 U/L (15-37); BILIRUBIN,TOTAL 0.5 MG/DL (0.2-1.0); BLOOD UREA NITROGEN 25 MG/DL (7-18); CALCIUM LEVEL 8.5 MG/DL (8.8-10.2); CARBON DIOXIDE LEVEL 29 MEQ/L (21-32); CHLORIDE LEVEL 98 MEQ/L (98-107); GLOMERULAR FILTRATION RATE > 60.0 (>35); GLUCOSE, FASTING 105 MG/DL (83-110); MAGNESIUM LEVEL 2.2 MG/DL (1.8-2.4); POTASSIUM SERUM 3.8 MEQ/L (3.5-5.1); SODIUM LEVEL 134 MEQ/L (136-145); TOTAL PROTEIN 6.9 GM/DL (6.4-8.2)
[2016-10-05] MEDS: METOPROLOL SUCC *XL* 25MG TAB (TopROL *XL*) PO SCH ×2 (10:37→20:54)
[2016-10-05] MEDS: DOCUSATE SODIUM 100 MG CAP PO SCH ×2 (10:37→20:53)
[2016-10-05] MEDS: LACTOBACILLUS ACIDOPHILUS CAP (BACID) PO SCH (10:37)
[2016-10-05] MEDS: ASPIRIN 81 MG ENTERIC TAB PO SCH (10:38)
[2016-10-05] MEDS: amLODIPine 10 MG TAB PO SCH (10:38)
--- NOTE | 2016-10-05 12:41 | IPNPDOC ---
Subjective Date Seen The patient was seen on 10/05/16. Subjective Chief Complaint/HPI The patient is a 89-year-old male admitted with a reason for visit of Weakness. General: Denies: Chills, Night Sweats Constitutional: Reports: Fatigue, Denies: Chills, Fever Eyes: Denies: Conjunctivae inflammation, Eyelid inflammation, Vision change Skin: Denies: Rash Pulmonary: Denies: Cough, Dyspnea, Pleuritic Chest Pain Cardiovascular: Denies: Chest Pain, Edema, Orthopnea, Palpitations, Paroxysmal Noc. Dyspnea Gastrointestinal: Denies: Abdominal Pain, Constipation, Diarrhea, Nausea, Vomiting Neurological: Reports: Numbness (pt. states it is still hard to move his right UE, seems to have minor improvement in ambulation of right UE), Denies: Weakness Psych: Reports: Mood Normal Objective Physical Examination General Exam: Positive: Alert, Cooperative, No Acute Distress, Other (patient was sitting in his bedside chair, sleeping peacefully ) Eye Exam: Positive: Conjunctiva & lids normal, EOMI, Negative: Ptosis, Sclera icteric ENT Exam: Positive: Atraumatic, Mucous membr. moist/pink, Nares Patent, Pharynx Normal, Tongue Midline Neck Exam: Positive: Supple Chest Exam: Positive: Clear to auscultation, Normal air movement, Negative: Rales, Rhonchi, Wheezing Heart Exam: Positive: Normal S1, Normal S2, Rate Normal, Negative: Bradycardic, Gallops, Murmurs, Rubs, Tachycardic Abdomen Exam: Positive: Normal bowel sounds, Soft, Negative: BS Hyperactive, BS Hypoactive, Hepatospenomegaly, Tenderness Extremity Exam: Positive: Normal pulses, Negative: Edema Assessment /Plan Problems (1) Stroke Status: Acute Response to Treatment: Stable Problem Text: - patient will begin PM&R today -presented with weakness on the right side - physical shows only some signs of minor improvement - MRI Brain 10/01: 1.1 x .5 cm ischemic focus in right rose radiata - Neurology consulted- appreciate their recommendations - Discussed with family about risks / benefits about full anticoagulation; will avoid full anticoagulation (ie. Warfarin) at this point - c/w ASA 81 - c/w PT / OT (2) A-fib Status: Chronic Response to Treatment: Stable Problem Text: - ECHO 09/2016: EF 65%, Severe mitral annular calcification, Trace AR, Moderate TR calcification, mild TR - c/w Metoprolol 25 BID for rate control - not on full anticoagulation since 05/2016 given Hemophagic stroke history - c/w ASA (3) Hypertension Status: Chronic Response to Treatment: Stable Problem Text: - 122/60 currently - Have completed 72 hours of permissive hypertension (BP control between 140- 180s) - Episode of hypertension in 190s yesterday that resolved - c/w Amlodipine at a higher dose (10mg) and Metoprolol 25 BID - continue Hydralazine to 30mg Q6H - continue to monitor and adjust as required (4) Hyperlipidemia Status: Chronic Response to Treatment: Stable Problem Text: - c/w atorvastatin (5) Coronary heart disease Status: Chronic Response to Treatment: Stable Problem Text: - s/p stent placement - c/w ASA, Atorvastatin, Metoprolol (6) DVT prophylaxis Status: Acute Response to Treatment: Stable Problem Text: SCD/TEDS Plan/VTE VTE Prophylaxis Ordered?: Yes VS, I&O, 24H, [facility] Vital Signs/I&O Vital Signs Date Time Temp Pulse Resp B/P Pulse Ox O2 Delivery O2 Flow Rate FiO2 10/05/16 10:38 66 122/60 10/05/16 06:00 98.1 18 90 Room Air I&O- Last 24 Hours up to 6 AM 10/05/16 06:00 Intake Total 1380 ml Output Total 850 ml Balance 530 ml Laboratory Data 24H LABS Laboratory Tests 2 10/05/16 07:00: Blood Urea Nitrogen 25H, Creatinine 1.10, Sodium Level 134L, Potassium Level 3.8 , Chloride Level 98, Carbon Dioxide Level 29, Calcium Level 8.5L, Aspartate Amino Transf (AST/SGOT) 31, Alanine Aminotransferase (ALT/SGPT) 25, Alkaline Phosphatase 63, Total Bilirubin 0.5, Total Protein 6.9, Albumin 3.4, Albumin/ Globulin Ratio 0.97L, Anion Gap 7L, Glomerular Filtration Rate > 60.0, Magnesium Level 2.2 CBC/BMP Laboratory Tests 10/05/16 07:00 Calcium Level 8.5 L, Aspartate Amino Transf (AST/SGOT) 31, Alanine Aminotransferase (ALT/SGPT) 25, Alkaline Phosphatase 63, Total Bilirubin 0.5, Total Protein 6.9, Albumin 3.4, Red Blood Count 3.97 L, Mean Corpuscular Volume 87.8, Mean Corpuscular Hemoglobin 29.0, Mean Corpuscular Hemoglobin Concent 33.0 , Red Cell Distribution Width 13.8 Microbiology Microbiology 10/01/16 Urine Culture - Final, Complete GME ATTESTATION GME ATTESTATION My preceptor for this patient encounter was physically present in the building during the encounter and was fully available. As needed, all aspects of the patient interview, examination, medical decision making process, and medical care plan development were reviewed and approved by the preceptor. Preceptor is aware and concurs with the plan as stated in the body of this note and will attest to such by his/her cosignature. MARIA E SANTOS DO Oct 05, 2016 12:41
[2016-10-05 14:00] VITALS: BP 137/63
[2016-10-05] MEDS: TROSPIUM 20 MG TAB PO SCH (20:53)
[2016-10-05] MEDS: FINASTERIDE 5 MG TAB PO SCH (20:53)
[2016-10-05] MEDS: FAMOTIDINE 20 MG TAB PO SCH (20:53)
[2016-10-05] MEDS: ATORVASTATIN 20 MG TAB PO SCH (20:53)
[2016-10-05 22:00] VITALS: BP 152/80
[2016-10-06] MEDS: **hydrALAZINE** 10 MG TAB PO SCH ×3 (05:21→17:29)
[2016-10-06] MEDS: SLF 3 ML SYR IV SCH ×3 (05:21→20:35)
[2016-10-06 06:00] VITALS: BP 138/70
[2016-10-06 06:44] LABS: MEAN CORPUSCULAR HEMOGLOBIN 30.7 pg (27.0-33.0); MEAN CORPUSCULAR HGB CONC 34.4 g/dl (32.0-36.5); MEAN CORPUSCULAR VOLUME 89.2 fl (80.0-96.0); RED CELL DISTRIBUTION WIDTH 13.7 % (11.5-14.5); WHITE BLOOD COUNT 7.6 K/mm3 (4.0-10.0)
[2016-10-06 07:06] LABS: ALBUMIN 3.2 GM/DL (3.2-5.2); ALBUMIN/GLOBULIN RATIO 0.94 (1.00-1.93); ALKALINE PHOSPHATASE 62 U/L (45-117); ALT/SGPT 23 U/L (12-78); ANION GAP 9 MEQ/L (8-16); AST/SGOT 24 U/L (15-37); BILIRUBIN,TOTAL 0.4 MG/DL (0.2-1.0); BLOOD UREA NITROGEN 25 MG/DL (7-18); CALCIUM LEVEL 8.3 MG/DL (8.8-10.2); CARBON DIOXIDE LEVEL 26 MEQ/L (21-32); CHLORIDE LEVEL 99 MEQ/L (98-107); CREATININE FOR GFR 1.12 MG/DL (0.70-1.30); GLOMERULAR FILTRATION RATE > 60.0 (>35); GLUCOSE, FASTING 108 MG/DL (83-110); MAGNESIUM LEVEL 1.9 MG/DL (1.8-2.4); POTASSIUM SERUM 3.8 MEQ/L (3.5-5.1); SODIUM LEVEL 134 MEQ/L (136-145); TOTAL PROTEIN 6.6 GM/DL (6.4-8.2)
--- NOTE | 2016-10-06 09:22 | IPN ---
DATE: 10/06/2016 Patient seen and examined at the bedside. Chart has been reviewed. Patient continues to complain of left sided weakness currently now with right sided weakness from a new ischemic cerebrovascular event (CVA). No new changes per nursing. Denies any shortness of breath, chest pain, pressure, headaches, dizziness, lightheadedness. Unable to ambulate due to significant weakness. Temperature 97.2, pulse 67 and regular, respiratory 19, blood pressure 138/70, 93% on room air. Generally, patient is awake, alert, oriented to person, place and time. Anicteric sclera. No jaundice. No facial asymmetry. Tongue is midline. Patient continues to have 2/5 motor weakness in right upper and lower extremity. Left upper and lower extremities 4/5. Heart: S1, S2. Irregularly irregular. Lungs: Diminished air entry but clear to auscultation. No wheezing, rales or rhonchi. Abdomen: Soft, nontender, nondistended, positive bowel sounds in all four quadrants. Extremities: No pitting edema or calf tenderness. LABORATORY DATA: White count 7.6, hemoglobin 11, hematocrit 33, platelet count 117. Sodium 134, potassium 3.8, chloride 99, bicarbonate 26, BUN 25, creatinine 1.12, glucose of 108. Microbiology: Urine culture 10/01 no growth of clinical significance. 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 CURRENT ISSUES: 1. New right ischemic cerebrovascular accident (CVA) in the right rose radiata measuring 1.1 x 0.5 cm. Physical exam had shown no significant improvement, still consistent weak on the right side. Neurology has been consulted. Dr. Maki has discussed the risks and benefits of full anticoagulation with the family. Avoiding warfarin due to prior history of intraparenchymal hemorrhage. Continue with aspirin 81 mg. Physical therapy (PT)/occupational therapy (OT), placement and Pain Medicine and Rehabilitation once bed is available and patient is accepted. 2. Atrial fibrillation chronic, stable, currently on aspirin with history of intraparenchymal hemorrhage. Echo 09/20/2016 shows ejection fraction (EF) of 65%, severe mitral annular calcification, trace MR, moderate TR, mild TR. Continue with metoprolol 25 twice daily for rate control, currently on aspirin due to prior history of hemorrhagic CVA 05/2016. 3. Hypertension, stable. Patient has completed 72 hours of permissive hypertensive with blood pressure controlled between 140-180. Patient is on Norvasc 10 mg, metoprolol 25 twice daily and hydralazine 30 every 6 hours. 4. Hyperlipidemia, continue with atorvastatin. 5. Coronary artery disease (CAD), history of stent, continue with aspirin and Lipitor and metoprolol. 6. Deep venous thrombosis (DVT) prophylaxis with thromboembolic deterrent stockings (TEDS). Awaiting physical therapy and Pain Medicine and Rehabilitation acceptable and bed availability.
[2016-10-06] MEDS: DOCUSATE SODIUM 100 MG CAP PO SCH ×2 (09:44→20:34)
[2016-10-06] MEDS: LACTOBACILLUS ACIDOPHILUS CAP (BACID) PO SCH (09:45)
[2016-10-06] MEDS: ASPIRIN 81 MG ENTERIC TAB PO SCH (09:45)
[2016-10-06] MEDS: METOPROLOL SUCC *XL* 25MG TAB (TopROL *XL*) PO SCH ×2 (09:46→20:34)
[2016-10-06] MEDS: amLODIPine 10 MG TAB PO SCH (09:46)
[2016-10-06 14:00] VITALS: BP 127/59
[2016-10-06] MEDS: FINASTERIDE 5 MG TAB PO SCH (20:34)
[2016-10-06] MEDS: TROSPIUM 20 MG TAB PO SCH (20:34)
[2016-10-06] MEDS: FAMOTIDINE 20 MG TAB PO SCH (20:34)
[2016-10-06] MEDS: ATORVASTATIN 20 MG TAB PO SCH (20:35)
[2016-10-06 22:00] VITALS: BP 132/70
[2016-10-07] MEDS: **hydrALAZINE** 10 MG TAB PO SCH ×5 (00:07→23:49)
[2016-10-07 06:00] VITALS: BP 138/70
[2016-10-07] MEDS: SLF 3 ML SYR IV SCH (06:00)
[2016-10-07] MEDS ORDERED: FLEET ENEMA PR PRN (06:30)
[2016-10-07 06:39] LABS: MEAN CORPUSCULAR HGB CONC 33.2 g/dl (32.0-36.5); MEAN CORPUSCULAR VOLUME 87.2 fl (80.0-96.0); RED CELL DISTRIBUTION WIDTH 13.6 % (11.5-14.5); WHITE BLOOD COUNT 6.4 K/mm3 (4.0-10.0)
[2016-10-07 06:53] LABS: ALBUMIN 3.3 GM/DL (3.2-5.2); ALKALINE PHOSPHATASE 59 U/L (45-117); ALT/SGPT 22 U/L (12-78); ANION GAP 6 MEQ/L (8-16); AST/SGOT 22 U/L (15-37); BILIRUBIN,TOTAL 0.4 MG/DL (0.2-1.0); BLOOD UREA NITROGEN 27 MG/DL (7-18); CALCIUM LEVEL 8.6 MG/DL (8.8-10.2); CARBON DIOXIDE LEVEL 26 MEQ/L (21-32); CHLORIDE LEVEL 100 MEQ/L (98-107); CREATININE FOR GFR 1.05 MG/DL (0.70-1.30); GLOMERULAR FILTRATION RATE > 60.0 (>35); GLUCOSE, FASTING 99 MG/DL (83-110); POTASSIUM SERUM 3.6 MEQ/L (3.5-5.1); SODIUM LEVEL 132 MEQ/L (136-145); TOTAL PROTEIN 6.6 GM/DL (6.4-8.2)
[2016-10-07] MEDS: ASPIRIN 81 MG ENTERIC TAB PO SCH (09:29)
[2016-10-07] MEDS: LACTOBACILLUS ACIDOPHILUS CAP (BACID) PO SCH (09:29)
[2016-10-07] MEDS: DOCUSATE SODIUM 100 MG CAP PO SCH ×2 (09:29→20:36)
[2016-10-07] MEDS: amLODIPine 10 MG TAB PO SCH (09:30)
[2016-10-07] MEDS: METOPROLOL SUCC *XL* 25MG TAB (TopROL *XL*) PO SCH ×2 (09:30→20:37)
[2016-10-07] MEDS: ACETAMINOPHEN TAB 650MG DOSE (2X325MG) PO PRN (13:00)
[2016-10-07] MEDS: FINASTERIDE 5 MG TAB PO SCH (20:36)
[2016-10-07] MEDS: ATORVASTATIN 20 MG TAB PO SCH (20:36)
[2016-10-07] MEDS: FAMOTIDINE 20 MG TAB PO SCH (20:37)
[2016-10-07] MEDS: TROSPIUM 20 MG TAB PO SCH (20:37)
[2016-10-07 22:00] VITALS: BP 123/59
[2016-10-08] MEDS: **hydrALAZINE** 10 MG TAB PO SCH ×4 (05:13→23:23)
[2016-10-08] MEDS: MOM 30ML SUSPENSION UDC PO PRN (05:13)
[2016-10-08 06:00] VITALS: BP 169/79
[2016-10-08] MEDS: amLODIPine 10 MG TAB PO SCH (09:00)
[2016-10-08] MEDS: DOCUSATE SODIUM 100 MG CAP PO SCH ×2 (09:00→21:00)
[2016-10-08] MEDS: ASPIRIN 81 MG ENTERIC TAB PO SCH (09:00)
[2016-10-08] MEDS: METOPROLOL SUCC *XL* 25MG TAB (TopROL *XL*) PO SCH ×2 (09:00→21:00)
[2016-10-08] MEDS: LACTOBACILLUS ACIDOPHILUS CAP (BACID) PO SCH (09:00)
[2016-10-08] MEDS: ACETAMINOPHEN TAB 650MG DOSE (2X325MG) PO PRN (17:55)
[2016-10-08] MEDS: TROSPIUM 20 MG TAB PO SCH (21:00)
[2016-10-08] MEDS: FINASTERIDE 5 MG TAB PO SCH (21:00)
[2016-10-08] MEDS: FAMOTIDINE 20 MG TAB PO SCH (21:00)
[2016-10-08] MEDS: ATORVASTATIN 20 MG TAB PO SCH (21:00)
[2016-10-08] MEDS: CIPRODEX OTIC SUSP 7.5ML AS SCH (21:00)
[2016-10-08 22:00] VITALS: BP 140/60
[2016-10-09] MEDS: **hydrALAZINE** 10 MG TAB PO SCH ×4 (05:19→23:45)
[2016-10-09] MEDS: ASPIRIN 81 MG ENTERIC TAB PO SCH (09:04)
[2016-10-09] MEDS: METOPROLOL SUCC *XL* 25MG TAB (TopROL *XL*) PO SCH ×2 (09:04→21:41)
[2016-10-09] MEDS: amLODIPine 10 MG TAB PO SCH (09:04)
[2016-10-09] MEDS: DOCUSATE SODIUM 100 MG CAP PO SCH ×2 (09:04→21:41)
[2016-10-09] MEDS: LACTOBACILLUS ACIDOPHILUS CAP (BACID) PO SCH (09:04)
[2016-10-09] MEDS: CIPRODEX OTIC SUSP 7.5ML AS SCH ×2 (09:05→21:42)
[2016-10-09] MEDS: ATORVASTATIN 20 MG TAB PO SCH (21:41)
[2016-10-09] MEDS: TROSPIUM 20 MG TAB PO SCH (21:41)
[2016-10-09] MEDS: FINASTERIDE 5 MG TAB PO SCH (21:41)
[2016-10-09] MEDS: FAMOTIDINE 20 MG TAB PO SCH (21:42)
[2016-10-10] MEDS: **hydrALAZINE** 10 MG TAB PO SCH ×3 (05:04→17:52)
[2016-10-10 06:00] VITALS: BP 172/83
[2016-10-10] MEDS: CIPRODEX OTIC SUSP 7.5ML AS SCH ×2 (09:40→19:56)
[2016-10-10] MEDS: LACTOBACILLUS ACIDOPHILUS CAP (BACID) PO SCH (10:31)
[2016-10-10] MEDS: ASPIRIN 81 MG ENTERIC TAB PO SCH (10:32)
[2016-10-10] MEDS: DOCUSATE SODIUM 100 MG CAP PO SCH ×2 (10:33→19:56)
[2016-10-10] MEDS: amLODIPine 10 MG TAB PO SCH (10:33)
[2016-10-10] MEDS: METOPROLOL SUCC *XL* 25MG TAB (TopROL *XL*) PO SCH ×2 (10:34→19:55)
[2016-10-10] MEDS: ATORVASTATIN 20 MG TAB PO SCH (19:55)
[2016-10-10] MEDS: TROSPIUM 20 MG TAB PO SCH (19:55)
[2016-10-10] MEDS: FAMOTIDINE 20 MG TAB PO SCH (19:56)
[2016-10-10] MEDS: FINASTERIDE 5 MG TAB PO SCH (19:56)
[2016-10-11] MEDS: **hydrALAZINE** 10 MG TAB PO SCH ×4 (00:13→18:05)
[2016-10-11] MEDS: MOM 30ML SUSPENSION UDC PO PRN (05:37)
[2016-10-11] MEDS: ACETAMINOPHEN TAB 650MG DOSE (2X325MG) PO PRN ×2 (05:38→21:56)
[2016-10-11 06:00] VITALS: BP 175/82
[2016-10-11] MEDS: ASPIRIN 81 MG ENTERIC TAB PO SCH (08:29)
[2016-10-11] MEDS: DOCUSATE SODIUM 100 MG CAP PO SCH ×2 (08:29→21:54)
[2016-10-11] MEDS: LACTOBACILLUS ACIDOPHILUS CAP (BACID) PO SCH (08:29)
[2016-10-11] MEDS: NYSTATIN 100,000 UNITS/GM TOPICAL PWD 15 GM TOP SCH ×2 (08:29→21:55)
[2016-10-11] MEDS: CIPRODEX OTIC SUSP 7.5ML AS SCH ×2 (08:29→21:55)
[2016-10-11] MEDS: METOPROLOL SUCC *XL* 25MG TAB (TopROL *XL*) PO SCH ×2 (08:30→21:55)
[2016-10-11] MEDS: amLODIPine 10 MG TAB PO SCH (08:30)
[2016-10-11 20:49] VITALS: BP 162/77
[2016-10-11] MEDS: FAMOTIDINE 20 MG TAB PO SCH (21:54)
[2016-10-11] MEDS: TROSPIUM 20 MG TAB PO SCH (21:54)
[2016-10-11] MEDS: FINASTERIDE 5 MG TAB PO SCH (21:55)
[2016-10-11] MEDS: ATORVASTATIN 20 MG TAB PO SCH (21:55)
[2016-10-12] MEDS: **hydrALAZINE** 10 MG TAB PO SCH ×4 (00:29→18:26)
[2016-10-12 06:00] VITALS: BP 151/80
[2016-10-12] MEDS: ASPIRIN 81 MG ENTERIC TAB PO SCH (08:32)
[2016-10-12] MEDS: LACTOBACILLUS ACIDOPHILUS CAP (BACID) PO SCH (08:33)
[2016-10-12] MEDS: amLODIPine 10 MG TAB PO SCH (08:33)
[2016-10-12] MEDS: DOCUSATE SODIUM 100 MG CAP PO SCH ×2 (08:33→20:44)
[2016-10-12] MEDS: METOPROLOL SUCC *XL* 25MG TAB (TopROL *XL*) PO SCH ×2 (08:34→20:44)
[2016-10-12] MEDS: NYSTATIN 100,000 UNITS/GM TOPICAL PWD 15 GM TOP SCH ×2 (08:34→20:43)
[2016-10-12] MEDS: CIPRODEX OTIC SUSP 7.5ML AS SCH ×2 (08:35→20:43)
[2016-10-12] MEDS: FAMOTIDINE 20 MG TAB PO SCH (20:43)
[2016-10-12] MEDS: FINASTERIDE 5 MG TAB PO SCH (20:43)
[2016-10-12] MEDS: ATORVASTATIN 20 MG TAB PO SCH (20:43)
[2016-10-12] MEDS: TROSPIUM 20 MG TAB PO SCH (20:43)
[2016-10-12] MEDS: ACETAMINOPHEN TAB 650MG DOSE (2X325MG) PO PRN (20:43)
[2016-10-13] MEDS: **hydrALAZINE** 10 MG TAB PO SCH ×4 (00:03→18:04)
[2016-10-13 06:00] VITALS: BP 165/76
[2016-10-13 09:38] LABS: MEAN CORPUSCULAR HEMOGLOBIN 31.1 pg (27.0-33.0); MEAN CORPUSCULAR HGB CONC 35.2 g/dl (32.0-36.5); MEAN CORPUSCULAR VOLUME 88.3 fl (80.0-96.0); RED CELL DISTRIBUTION WIDTH 13.5 % (11.5-14.5); WHITE BLOOD COUNT 6.9 K/mm3 (4.0-10.0)
[2016-10-13 09:58] LABS: CALCIUM LEVEL 8.2 MG/DL (8.8-10.2); CREATININE FOR GFR 1.25 MG/DL (0.70-1.30); GLOMERULAR FILTRATION RATE 57.9 (>35); MAGNESIUM LEVEL 2.2 MG/DL (1.8-2.4); POTASSIUM SERUM 3.8 MEQ/L (3.5-5.1)
[2016-10-13] MEDS: ASPIRIN 81 MG ENTERIC TAB PO SCH (10:12)
[2016-10-13] MEDS: METOPROLOL SUCC *XL* 25MG TAB (TopROL *XL*) PO SCH ×2 (10:12→21:36)
[2016-10-13] MEDS: LACTOBACILLUS ACIDOPHILUS CAP (BACID) PO SCH (10:13)
[2016-10-13] MEDS: DOCUSATE SODIUM 100 MG CAP PO SCH ×2 (10:13→21:34)
[2016-10-13] MEDS: amLODIPine 10 MG TAB PO SCH (10:13)
[2016-10-13] MEDS: NYSTATIN 100,000 UNITS/GM TOPICAL PWD 15 GM TOP SCH ×2 (10:14→21:36)
[2016-10-13] MEDS: ACETAMINOPHEN TAB 650MG DOSE (2X325MG) PO PRN ×2 (10:14→21:36)
[2016-10-13] MEDS: CIPRODEX OTIC SUSP 7.5ML AS SCH ×2 (10:14→21:37)
--- NOTE | 2016-10-13 20:41 | IPN ---
DATE: 10/13/2016 Patient seen and examined. No acute events overnight. Denies any chest pain, pressure, or discomfort. Denies any shortness of breath. VITAL SIGNS: Temperature 98.3, pulse 65, respirations 21, blood pressure 163/69, pulse oximetry 96% on room air. LABORATORY DATA: WBC 6.9, hemoglobin and hematocrit 12.7/36.2, platelets 182. Chemistry: Sodium 133, potassium 3.8, chloride 99, bicarbonate 26, BUN 22, creatinine 1.25. PHYSICAL EXAMINATION: GENERAL: Patient comfortable, in no acute distress, alert and oriented to person, place, and time. CARDIAC: Irregularly, irregular, S1, S2. PULMONARY: Diminished air entry bilateral bases, otherwise relatively clear. No wheezes, rales, or rhonchi. ABDOMEN: Soft, nontender, nondistended. Positive bowel sounds. EXTREMITIES: No edema bilateral lower extremities. ASSESSMENT AND PLAN: This is an 89-year-old male patient with underlying medical history of intraparenchymal hemorrhage in May 2016 with residual left-sided weakness, hypertension, coronary artery disease with stents, atrial fibrillation on aspirin only, BPH, chronic kidney disease (CKD) stage III, hearing loss, chronic vertigo, history of urinary tract infection (UTI) and gastroesophageal reflux disease (GERD), presented to the hospital with weakness and lightheadedness, found to have right-sided weakness and new acute ischemic CVA. 1. New CVA in the right rose radiata as well as basilar CVA. Physical therapy (PT), occupational therapy (OT). Neurology has been consulted. Given the risk of bleeding, risk and benefit of full anticoagulation has been discussed with patient's family by Dr. Maki. It was decided to avoid Coumadin given history of intraparenchymal hemorrhage. Aspirin 81 mg. Physical medicine and rehabilitation (PM R) evaluation was initially done. 2. Atrial fibrillation, chronic. Currently on aspirin given history of intraparenchymal hemorrhage. Echo appreciated 09/20/2016, ejection fraction (EF) of 65% with severe mitral annular calcification, trace mitral regurgitation (MR), moderate tricuspid regurgitation (TR), mild tricuspid regurgitation (TR). Continue metoprolol. Currently rate controlled. 3. Hypertension. Monitor blood pressure. Permissive hypertension was offered for 72 hours. Continue Norvasc, metoprolol, hydralazine. 4. Dyslipidemia. Continue statin. 5. Coronary artery disease with stents. Continue aspirin, statin, beta blockers. 6. Deep venous thrombosis (DVT) prophylaxis. Sequential compression device. 7. BPH. Continue home medication. DISPOSITION: Pending short-term subacute rehabilitation. Patient currently is alternate level of care.
[2016-10-13] MEDS: FAMOTIDINE 20 MG TAB PO SCH (21:34)
[2016-10-13] MEDS: FINASTERIDE 5 MG TAB PO SCH (21:34)
[2016-10-13] MEDS: ATORVASTATIN 20 MG TAB PO SCH (21:35)
[2016-10-13] MEDS: TROSPIUM 20 MG TAB PO SCH (21:35)
[2016-10-13] MEDS: ANALGESIC BALM CRM 120 GM TOP PRN (21:37)
[2016-10-14] MEDS: **hydrALAZINE** 10 MG TAB PO SCH ×5 (00:20→23:28)
[2016-10-14] MEDS: ANALGESIC BALM CRM 120 GM TOP PRN (05:15)
[2016-10-14 06:00] VITALS: BP 158/80
[2016-10-14] MEDS: DOCUSATE SODIUM 100 MG CAP PO SCH ×2 (09:10→21:24)
[2016-10-14] MEDS: LACTOBACILLUS ACIDOPHILUS CAP (BACID) PO SCH (09:10)
[2016-10-14] MEDS: METOPROLOL SUCC *XL* 25MG TAB (TopROL *XL*) PO SCH ×2 (09:10→21:24)
[2016-10-14] MEDS: amLODIPine 10 MG TAB PO SCH (09:10)
[2016-10-14] MEDS: CIPRODEX OTIC SUSP 7.5ML AS SCH ×2 (09:11→21:25)
[2016-10-14] MEDS: ASPIRIN 81 MG ENTERIC TAB PO SCH (09:11)
[2016-10-14] MEDS: NYSTATIN 100,000 UNITS/GM TOPICAL PWD 15 GM TOP SCH ×2 (09:12→21:25)
[2016-10-14 20:19] VITALS: BP 150/67
[2016-10-14] MEDS: FAMOTIDINE 20 MG TAB PO SCH (21:24)
[2016-10-14] MEDS: FINASTERIDE 5 MG TAB PO SCH (21:24)
[2016-10-14] MEDS: TROSPIUM 20 MG TAB PO SCH (21:24)
[2016-10-14] MEDS: ATORVASTATIN 20 MG TAB PO SCH (21:24)
[2016-10-14] MEDS: ACETAMINOPHEN TAB 650MG DOSE (2X325MG) PO PRN (21:25)
[2016-10-15] MEDS: **hydrALAZINE** 10 MG TAB PO SCH ×3 (05:55→17:39)
[2016-10-15 06:00] VITALS: BP 158/82
[2016-10-15] MEDS: LACTOBACILLUS ACIDOPHILUS CAP (BACID) PO SCH (10:14)
[2016-10-15] MEDS: ASPIRIN 81 MG ENTERIC TAB PO SCH (10:15)
[2016-10-15] MEDS: amLODIPine 10 MG TAB PO SCH (10:15)
[2016-10-15] MEDS: METOPROLOL SUCC *XL* 25MG TAB (TopROL *XL*) PO SCH ×2 (10:15→20:12)
[2016-10-15] MEDS: DOCUSATE SODIUM 100 MG CAP PO SCH ×2 (10:15→20:11)
[2016-10-15] MEDS: CIPRODEX OTIC SUSP 7.5ML AS SCH ×2 (10:16→20:12)
[2016-10-15] MEDS: NYSTATIN 100,000 UNITS/GM TOPICAL PWD 15 GM TOP SCH ×2 (10:17→20:12)
[2016-10-15] MEDS: ATORVASTATIN 20 MG TAB PO SCH (20:11)
[2016-10-15] MEDS: FAMOTIDINE 20 MG TAB PO SCH (20:11)
[2016-10-15] MEDS: FINASTERIDE 5 MG TAB PO SCH (20:12)
[2016-10-15] MEDS: TROSPIUM 20 MG TAB PO SCH (20:12)
[2016-10-15 22:00] VITALS: BP 150/68
[2016-10-16] MEDS: **hydrALAZINE** 10 MG TAB PO SCH ×4 (00:04→17:25)
[2016-10-16 07:02] LABS: MEAN CORPUSCULAR HEMOGLOBIN 30.7 pg (27.0-33.0); MEAN CORPUSCULAR HGB CONC 35.4 g/dl (32.0-36.5); MEAN CORPUSCULAR VOLUME 86.8 fl (80.0-96.0); RED CELL DISTRIBUTION WIDTH 13.2 % (11.5-14.5); WHITE BLOOD COUNT 7.4 K/mm3 (4.0-10.0)
[2016-10-16 07:09] LABS: ANION GAP 9 MEQ/L (8-16); BLOOD UREA NITROGEN 14 MG/DL (7-18); CALCIUM LEVEL 8.4 MG/DL (8.8-10.2); CARBON DIOXIDE LEVEL 25 MEQ/L (21-32); CHLORIDE LEVEL 97 MEQ/L (98-107); CREATININE FOR GFR 0.95 MG/DL (0.70-1.30); GLOMERULAR FILTRATION RATE > 60.0 (>35); GLUCOSE, FASTING 104 MG/DL (83-110); MAGNESIUM LEVEL 1.9 MG/DL (1.8-2.4); POTASSIUM SERUM 3.7 MEQ/L (3.5-5.1); SODIUM LEVEL 131 MEQ/L (136-145)
[2016-10-16] MEDS: DOCUSATE SODIUM 100 MG CAP PO SCH ×2 (09:45→21:07)
[2016-10-16] MEDS: ASPIRIN 81 MG ENTERIC TAB PO SCH (09:45)
[2016-10-16] MEDS: NYSTATIN 100,000 UNITS/GM TOPICAL PWD 15 GM TOP SCH ×2 (09:45→21:12)
[2016-10-16] MEDS: CIPRODEX OTIC SUSP 7.5ML AS SCH ×2 (09:45→21:12)
[2016-10-16] MEDS: amLODIPine 10 MG TAB PO SCH (09:45)
[2016-10-16] MEDS: LACTOBACILLUS ACIDOPHILUS CAP (BACID) PO SCH (09:45)
[2016-10-16] MEDS: METOPROLOL SUCC *XL* 25MG TAB (TopROL *XL*) PO SCH ×2 (09:45→21:11)
[2016-10-16] MEDS: ANALGESIC BALM CRM 120 GM TOP PRN (11:35)
[2016-10-16 14:00] VITALS: BP 150/74
[2016-10-16] MEDS: ATORVASTATIN 20 MG TAB PO SCH (21:09)
[2016-10-16] MEDS: TROSPIUM 20 MG TAB PO SCH (21:09)
[2016-10-16] MEDS: FAMOTIDINE 20 MG TAB PO SCH (21:12)
[2016-10-16] MEDS: FINASTERIDE 5 MG TAB PO SCH (21:12)
[2016-10-17] MEDS: **hydrALAZINE** 10 MG TAB PO SCH ×4 (00:31→18:12)
[2016-10-17] MEDS: ASPIRIN 81 MG ENTERIC TAB PO SCH (08:30)
[2016-10-17] MEDS: METOPROLOL SUCC *XL* 25MG TAB (TopROL *XL*) PO SCH ×2 (08:31→22:02)
[2016-10-17] MEDS: CIPRODEX OTIC SUSP 7.5ML AS SCH ×2 (08:31→22:03)
[2016-10-17] MEDS: amLODIPine 10 MG TAB PO SCH (08:31)
[2016-10-17] MEDS: NYSTATIN 100,000 UNITS/GM TOPICAL PWD 15 GM TOP SCH ×2 (08:32→22:03)
[2016-10-17] MEDS: LACTOBACILLUS ACIDOPHILUS CAP (BACID) PO SCH (08:32)
[2016-10-17] MEDS: DOCUSATE SODIUM 100 MG CAP PO SCH ×2 (08:32→21:59)
[2016-10-17] MEDS: ATORVASTATIN 20 MG TAB PO SCH (22:01)
[2016-10-17] MEDS: TROSPIUM 20 MG TAB PO SCH (22:01)
[2016-10-17] MEDS: FAMOTIDINE 20 MG TAB PO SCH (22:01)
[2016-10-17] MEDS: FINASTERIDE 5 MG TAB PO SCH (22:02)
[2016-10-18] MEDS: **hydrALAZINE** 10 MG TAB PO SCH ×4 (00:31→18:22)
[2016-10-18 06:00] VITALS: BP 142/67
[2016-10-18] MEDS: MOM 30ML SUSPENSION UDC PO PRN (09:10)
[2016-10-18] MEDS: LACTOBACILLUS ACIDOPHILUS CAP (BACID) PO SCH (09:10)
[2016-10-18] MEDS: amLODIPine 10 MG TAB PO SCH (09:10)
[2016-10-18] MEDS: DOCUSATE SODIUM 100 MG CAP PO SCH ×2 (09:10→20:01)
[2016-10-18] MEDS: ASPIRIN 81 MG ENTERIC TAB PO SCH (09:10)
[2016-10-18] MEDS: METOPROLOL SUCC *XL* 25MG TAB (TopROL *XL*) PO SCH ×2 (09:10→20:01)
[2016-10-18] MEDS: CIPRODEX OTIC SUSP 7.5ML AS SCH ×2 (09:11→20:02)
[2016-10-18] MEDS: NYSTATIN 100,000 UNITS/GM TOPICAL PWD 15 GM TOP SCH ×2 (09:11→20:02)
[2016-10-18] MEDS: TROSPIUM 20 MG TAB PO SCH (20:00)
[2016-10-18] MEDS: FAMOTIDINE 20 MG TAB PO SCH (20:01)
[2016-10-18] MEDS: FINASTERIDE 5 MG TAB PO SCH (20:01)
[2016-10-18] MEDS: ATORVASTATIN 20 MG TAB PO SCH (20:01)
[2016-10-18 21:00] VITALS: BP 123/63
[2016-10-19] MEDS: **hydrALAZINE** 10 MG TAB PO SCH ×4 (00:01→18:32)
[2016-10-19 06:00] VITALS: BP 144/65
[2016-10-19 08:02] LABS: MEAN CORPUSCULAR HEMOGLOBIN 29.9 pg (27.0-33.0); MEAN CORPUSCULAR HGB CONC 33.9 g/dl (32.0-36.5); MEAN CORPUSCULAR VOLUME 88.2 fl (80.0-96.0); RED CELL DISTRIBUTION WIDTH 13.5 % (11.5-14.5); WHITE BLOOD COUNT 7.2 K/mm3 (4.0-10.0)
[2016-10-19 08:19] LABS: ANION GAP 7 MEQ/L (8-16); BLOOD UREA NITROGEN 21 MG/DL (7-18); CALCIUM LEVEL 8.3 MG/DL (8.8-10.2); CARBON DIOXIDE LEVEL 26 MEQ/L (21-32); CHLORIDE LEVEL 99 MEQ/L (98-107); CREATININE FOR GFR 1.21 MG/DL (0.70-1.30); GLOMERULAR FILTRATION RATE > 60.0 (>35); GLUCOSE, FASTING 129 MG/DL (83-110); MAGNESIUM LEVEL 2.1 MG/DL (1.8-2.4); POTASSIUM SERUM 3.6 MEQ/L (3.5-5.1); SODIUM LEVEL 132 MEQ/L (136-145)
[2016-10-19] MEDS: LACTOBACILLUS ACIDOPHILUS CAP (BACID) PO SCH (08:20)
[2016-10-19] MEDS: METOPROLOL SUCC *XL* 25MG TAB (TopROL *XL*) PO SCH ×2 (08:20→20:02)
[2016-10-19] MEDS: DOCUSATE SODIUM 100 MG CAP PO SCH ×2 (08:21→20:06)
[2016-10-19] MEDS: ASPIRIN 81 MG ENTERIC TAB PO SCH (08:21)
[2016-10-19] MEDS: amLODIPine 10 MG TAB PO SCH (08:21)
[2016-10-19] MEDS: CIPRODEX OTIC SUSP 7.5ML AS SCH ×2 (08:22→20:07)
[2016-10-19] MEDS: NYSTATIN 100,000 UNITS/GM TOPICAL PWD 15 GM TOP SCH ×2 (08:23→20:06)
[2016-10-19] MEDS ORDERED: POTASSIUM CHLORIDE 10 MEQ SR TABLET PO ONE (10:30)
[2016-10-19] MEDS: ATORVASTATIN 20 MG TAB PO SCH (20:06)
[2016-10-19] MEDS: FAMOTIDINE 20 MG TAB PO SCH (20:06)
[2016-10-19] MEDS: TROSPIUM 20 MG TAB PO SCH (20:06)
[2016-10-19] MEDS: FINASTERIDE 5 MG TAB PO SCH (20:06)
[2016-10-20] MEDS: **hydrALAZINE** 10 MG TAB PO SCH ×5 (00:03→23:25)
[2016-10-20 05:16] VITALS: BP 168/81
[2016-10-20] MEDS: NYSTATIN 100,000 UNITS/GM TOPICAL PWD 15 GM TOP SCH ×2 (08:33→21:23)
[2016-10-20] MEDS: DOCUSATE SODIUM 100 MG CAP PO SCH ×2 (08:33→21:18)
[2016-10-20] MEDS: ASPIRIN 81 MG ENTERIC TAB PO SCH (08:33)
[2016-10-20] MEDS: LACTOBACILLUS ACIDOPHILUS CAP (BACID) PO SCH (08:33)
[2016-10-20] MEDS: amLODIPine 10 MG TAB PO SCH (08:35)
[2016-10-20] MEDS: METOPROLOL SUCC *XL* 25MG TAB (TopROL *XL*) PO SCH ×2 (08:35→21:22)
[2016-10-20] MEDS: CIPRODEX OTIC SUSP 7.5ML AS SCH ×2 (08:36→21:23)
--- NOTE | 2016-10-20 11:46 | IPNPDOC ---
Subjective Date Seen The patient was seen on 10/20/16. Subjective Chief Complaint/HPI The patient is a 89-year-old male admitted with a reason for visit of Weakness. Events since last encounter no changes per staff, ambulated in [place] last night Objective Physical Examination General Exam: Positive: Alert, Cooperative, No Acute Distress, Other (patient was sitting in his bedside chair, sleeping peacefully ) Eye Exam: Positive: Conjunctiva & lids normal, EOMI, Negative: Sclera icteric, Ptosis ENT Exam: Positive: Atraumatic, Mucous membr. moist/pink, Pharynx Normal, Tongue Midline, Nares Patent Neck Exam: Positive: Supple Chest Exam: Positive: Clear to auscultation, Normal air movement, Negative: Rales, Rhonchi, Wheezing Heart Exam: Positive: Rate Normal, Normal S1, Normal S2, Negative: Tachycardic, Bradycardic, Gallops, Murmurs, Rubs Abdomen Exam: Positive: Normal bowel sounds, Soft, Negative: BS Hyperactive, BS Hypoactive, Tenderness, Hepatospenomegaly Extremity Exam: Positive: Normal pulses, Negative: Edema Assessment /Plan Problems (1) Stroke Status: Acute Response to Treatment: Stable Problem Text: - Discussed with family about risks / benefits about full anticoagulation; will avoid full anticoagulation (ie. Warfarin) at this point - c/w ASA 81 - c/w PT / OT (2) A-fib Status: Chronic Response to Treatment: Stable Problem Text: - ECHO 09/2016: EF 65%, Severe mitral annular calcification, Trace AR, Moderate TR calcification, mild TR - c/w Metoprolol 25 BID for rate control - not on full anticoagulation since 05/2016 given Hemophagic stroke history - c/w ASA (3) Hypertension Status: Chronic Response to Treatment: Stable Problem Text: stable/controlled on current regimen (4) Hyperlipidemia Status: Chronic Response to Treatment: Stable Problem Text: - c/w atorvastatin (5) Coronary heart disease Status: Chronic Response to Treatment: Stable Problem Text: - s/p stent placement - c/w ASA, Atorvastatin, Metoprolol (6) DVT prophylaxis Status: Acute Response to Treatment: Stable Problem Text: SCD/TEDS Plan/VTE VTE Prophylaxis Ordered?: Yes VS, I&O, 24H, [facility] Vital Signs/I&O Vital Signs Date Time Temp Pulse Resp B/P (MAP) Pulse Ox O2 Delivery O2 Flow Rate FiO2 10/20/16 09:30 Room Air 10/20/16 08:35 78 190/79 10/20/16 05:16 98.6 20 95 I&O- Last 24 Hours up to 6 AM 10/20/16 05:59 Intake Total 780 ml Output Total 925 ml Balance -145 ml Sergey Coyne MD October 20, 2016 11:46
[2016-10-20] MEDS: ANALGESIC BALM CRM 120 GM TOP PRN (12:13)
[2016-10-20] MEDS: FINASTERIDE 5 MG TAB PO SCH (21:18)
[2016-10-20] MEDS: FAMOTIDINE 20 MG TAB PO SCH (21:19)
[2016-10-20] MEDS: TROSPIUM 20 MG TAB PO SCH (21:19)
[2016-10-20] MEDS: ATORVASTATIN 20 MG TAB PO SCH (21:22)
[2016-10-21] MEDS: **hydrALAZINE** 10 MG TAB PO SCH ×3 (05:59→18:18)
[2016-10-21 06:00] VITALS: BP 151/86
[2016-10-21] MEDS: DOCUSATE SODIUM 100 MG CAP PO SCH ×2 (08:56→21:14)
[2016-10-21] MEDS: LACTOBACILLUS ACIDOPHILUS CAP (BACID) PO SCH (08:56)
[2016-10-21] MEDS: ASPIRIN 81 MG ENTERIC TAB PO SCH (08:57)
[2016-10-21] MEDS: METOPROLOL SUCC *XL* 25MG TAB (TopROL *XL*) PO SCH ×2 (08:58→21:14)
[2016-10-21] MEDS: amLODIPine 10 MG TAB PO SCH (08:59)
[2016-10-21] MEDS: CIPRODEX OTIC SUSP 7.5ML AS SCH ×2 (08:59→21:14)
[2016-10-21] MEDS: NYSTATIN 100,000 UNITS/GM TOPICAL PWD 15 GM TOP SCH ×2 (09:00→21:15)
[2016-10-21 12:21] VITALS: BP 140/70
[2016-10-21] MEDS: ATORVASTATIN 20 MG TAB PO SCH (21:14)
[2016-10-21] MEDS: FAMOTIDINE 20 MG TAB PO SCH (21:14)
[2016-10-21] MEDS: TROSPIUM 20 MG TAB PO SCH (21:14)
[2016-10-21] MEDS: FINASTERIDE 5 MG TAB PO SCH (21:14)
[2016-10-21 22:00] VITALS: BP 154/73
[2016-10-22] MEDS: **hydrALAZINE** 10 MG TAB PO SCH ×4 (00:37→19:17)
[2016-10-22 06:00] VITALS: BP 176/79
[2016-10-22 07:02] LABS: MEAN CORPUSCULAR HEMOGLOBIN 30.3 pg (27.0-33.0); MEAN CORPUSCULAR HGB CONC 34.6 g/dl (32.0-36.5); MEAN CORPUSCULAR VOLUME 87.4 fl (80.0-96.0); RED CELL DISTRIBUTION WIDTH 13.4 % (11.5-14.5); WHITE BLOOD COUNT 5.8 K/mm3 (4.0-10.0)
[2016-10-22 07:21] LABS: ANION GAP 8 MEQ/L (8-16); BLOOD UREA NITROGEN 19 MG/DL (7-18); CALCIUM LEVEL 8.4 MG/DL (8.8-10.2); CARBON DIOXIDE LEVEL 25 MEQ/L (21-32); CHLORIDE LEVEL 99 MEQ/L (98-107); CREATININE FOR GFR 1.02 MG/DL (0.70-1.30); GLOMERULAR FILTRATION RATE > 60.0 (>35); GLUCOSE, FASTING 98 MG/DL (83-110); MAGNESIUM LEVEL 1.9 MG/DL (1.8-2.4); POTASSIUM SERUM 3.7 MEQ/L (3.5-5.1); SODIUM LEVEL 132 MEQ/L (136-145)
[2016-10-22] MEDS: amLODIPine 10 MG TAB PO SCH (09:38)
[2016-10-22] MEDS: ASPIRIN 81 MG ENTERIC TAB PO SCH (09:38)
[2016-10-22] MEDS: METOPROLOL SUCC *XL* 25MG TAB (TopROL *XL*) PO SCH ×2 (09:38→20:03)
[2016-10-22] MEDS: DOCUSATE SODIUM 100 MG CAP PO SCH ×2 (09:38→20:02)
[2016-10-22] MEDS: LACTOBACILLUS ACIDOPHILUS CAP (BACID) PO SCH (09:38)
[2016-10-22] MEDS: CIPRODEX OTIC SUSP 7.5ML AS SCH ×2 (09:39→20:04)
[2016-10-22] MEDS: NYSTATIN 100,000 UNITS/GM TOPICAL PWD 15 GM TOP SCH ×2 (09:39→20:04)
[2016-10-22] MEDS: ATORVASTATIN 20 MG TAB PO SCH (20:02)
[2016-10-22] MEDS: FAMOTIDINE 20 MG TAB PO SCH (20:02)
[2016-10-22] MEDS: TROSPIUM 20 MG TAB PO SCH (20:02)
[2016-10-22] MEDS: FINASTERIDE 5 MG TAB PO SCH (20:02)
[2016-10-23] MEDS: **hydrALAZINE** 10 MG TAB PO SCH ×4 (01:00→17:46)
[2016-10-23 05:15] VITALS: BP 160/79
[2016-10-23] MEDS: DOCUSATE SODIUM 100 MG CAP PO SCH ×2 (08:34→20:22)
[2016-10-23] MEDS: amLODIPine 10 MG TAB PO SCH (08:34)
[2016-10-23] MEDS: ASPIRIN 81 MG ENTERIC TAB PO SCH (08:34)
[2016-10-23] MEDS: LACTOBACILLUS ACIDOPHILUS CAP (BACID) PO SCH (08:34)
[2016-10-23] MEDS: METOPROLOL SUCC *XL* 25MG TAB (TopROL *XL*) PO SCH ×2 (08:34→20:23)
[2016-10-23] MEDS: NYSTATIN 100,000 UNITS/GM TOPICAL PWD 15 GM TOP SCH ×2 (08:35→20:24)
[2016-10-23] MEDS: CIPRODEX OTIC SUSP 7.5ML AS SCH ×2 (08:35→20:24)
[2016-10-23 12:15] VITALS: BP 185/92
[2016-10-23 14:30] VITALS: BP 124/58
[2016-10-23] MEDS: TROSPIUM 20 MG TAB PO SCH (20:22)
[2016-10-23] MEDS: ATORVASTATIN 20 MG TAB PO SCH (20:22)
[2016-10-23] MEDS: FINASTERIDE 5 MG TAB PO SCH (20:23)
[2016-10-23] MEDS: FAMOTIDINE 20 MG TAB PO SCH (20:23)
[2016-10-24] MEDS: **hydrALAZINE** 10 MG TAB PO SCH ×6 (00:01→23:55)
[2016-10-24 00:46] LABS: MEAN CORPUSCULAR HEMOGLOBIN 31.5 pg (27.0-33.0); MEAN CORPUSCULAR VOLUME 89.9 fl (80.0-96.0); RED CELL DISTRIBUTION WIDTH 13.2 % (11.5-14.5); WHITE BLOOD COUNT 6.8 K/mm3 (4.0-10.0)
[2016-10-24 01:07] LABS: ALBUMIN 3.3 GM/DL (3.2-5.2); ALKALINE PHOSPHATASE 69 U/L (45-117); ALT/SGPT 21 U/L (12-78); ANION GAP 7 MEQ/L (8-16); AST/SGOT 14 U/L (15-37); BILIRUBIN,TOTAL 0.4 MG/DL (0.2-1.0); BLOOD UREA NITROGEN 22 MG/DL (7-18); CALCIUM LEVEL 8.5 MG/DL (8.8-10.2); CARBON DIOXIDE LEVEL 27 MEQ/L (21-32); CHLORIDE LEVEL 99 MEQ/L (98-107); CREATININE FOR GFR 1.06 MG/DL (0.70-1.30); GLOMERULAR FILTRATION RATE > 60.0 (>35); GLUCOSE, FASTING 96 MG/DL (83-110); POTASSIUM SERUM 3.8 MEQ/L (3.5-5.1); SODIUM LEVEL 133 MEQ/L (136-145); TOTAL PROTEIN 6.6 GM/DL (6.4-8.2)
--- NOTE | 2016-10-24 01:20 | REPUSA ---
CLINICAL HISTORY: Altered mental status. TECHNIQUE: Multiple axial CT images were obtained through the brain without IV contrast material. COMMENTS: There is normal configuration of sella turcica. There are no intra or extra-axial collections. There is no mass effect or midline shift. There is no evidence of hematoma formation. No hydrocephalus is p resent. The ventricles are symmetrical. No abnormal calcifications are present. There is diffuse age-appropriate cerebellar and cerebral atrophy with proportionally dilated ventricl es and cortical sulci. There are bilateral periventricular and subcortical white matter hypolucencies compatible with mild c hronic microvascular disease. Otherwise, no significant focal abnormalities are seen either in the posterior fossa or supratentoria l compartment. IMPRESSION: 1. Age-appropriate cerebellar and cerebral atrophy. 2. Mild chronic microvascular disease. 3. No evidence of acute intracranial pathology. No change is noted since the prior exam on 10/04/2016 . Thank you for your kind referral of this patient.
--- NOTE | 2016-10-24 04:40 | IPN ---
DATE OF SERVICE: 10/24/2016 Quick update regarding Mr. Carlos Cancino. I was called to see . Carlos Cancino, an 89-year-old male with multiple past medical history, due to nonresponsive to vocal stimulus. According to the nursing report, in the evening patient was awake and oriented when he received his evening medications. However, when the nurse evaluated patient for urination, patient was found to be nonresponsive to vocal stimulus. At midnight, patient's vital signs recorded as blood pressure 160/82, heart rate 64, respiratory rate 16, pulse 96, and patient's blood sugar was 108. Due to the extended cardiovascular and neurological history, I have ordered a CT of the head without contrast. Also, I have ordered labs including cardiac marker, as well as EKG, which indicated sinus bradycardia. Vital signs again recorded, which indicated blood pressure 142/80, heart rate 60, respiratory rate 18 and a pulse of 98 on room air. Lab result did not indicate any new pathology and the cardiac marker was negative. Patient's head CT did not show any evidence of acute intracranial pathology and no changes are noted since the prior exam on 10/04/2016. I spoke with the patient's son (Mr. Win Cancino, phone number [phone]), who is his health proxy and informed him regarding patient's situation of nonresponsiveness. Patient's son, indicated patient's code status as DO NOT RESUSCITATE/DO NOT INTUBATE which was also witnessed by the patient's nurse ( Ms. Selam Michel). The Medical Orders for Life-Sustaining Treatment (MOLST) form was filled and charted. Also DNR order was ordered electronically. My preceptor for this patient encounter was Dr. Geneva Alberto. The preceptor was physically present in the building during the encounter and was fully available as needed. All aspects of the patient interview, examination, medical decision making process, and medical care plan development were reviewed and approved by the preceptor. The preceptor is aware and concurs with the plan as stated in the body of this note and will attest to such by his/her co-signature. PEPE
[2016-10-24 06:00] VITALS: BP 141/66
[2016-10-24 09:40] VITALS: BP 150/74
[2016-10-24] MEDS: DOCUSATE SODIUM 100 MG CAP PO SCH ×2 (10:29→20:40)
[2016-10-24] MEDS: LACTOBACILLUS ACIDOPHILUS CAP (BACID) PO SCH (10:29)
[2016-10-24] MEDS: METOPROLOL SUCC *XL* 25MG TAB (TopROL *XL*) PO SCH ×2 (10:31→20:40)
[2016-10-24] MEDS: ASPIRIN 81 MG ENTERIC TAB PO SCH (10:31)
[2016-10-24] MEDS: amLODIPine 10 MG TAB PO SCH (10:32)
[2016-10-24] MEDS: CIPRODEX OTIC SUSP 7.5ML AS SCH ×2 (10:32→20:42)
[2016-10-24] MEDS: NYSTATIN 100,000 UNITS/GM TOPICAL PWD 15 GM TOP SCH ×2 (10:33→20:42)
[2016-10-24 12:16] VITALS: BP_SYST 168
--- NOTE | 2016-10-24 13:53 | ECGEPIP ---
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
[2016-10-24 14:35] VITALS: BP 120/58
--- NOTE | 2016-10-24 15:13 | IPN ---
DATE: 10/24/2016 Staff called me this morning because Carlos seemed to be sedated and not having his usual level of mental status. Apparently he had a workup for this in the middle of the night. Lab work was done and looks unremarkable. CBC looks normal. CMP looks unremarkable. Did have some urinary retention. We put a Lozoya catheter in, for about 400 mL. Urinalysis is not convincing for urinary tract infection (UTI), only 5 white cells. PHYSICAL EXAMINATION: He is fully alert, conversive, visiting with family. He seems at his baseline mental status. His vital signs are stable. IMPRESSION: Urinary retention. Will keep the Lozoya catheter in for a short period of time and do a trial of voiding later in the week. I am not starting any empiric antibiotics pending results of the urine culture, as there is no convincing evidence of UTI based on the urinalysis.
[2016-10-24] MEDS: FINASTERIDE 5 MG TAB PO SCH (20:40)
[2016-10-24] MEDS: TROSPIUM 20 MG TAB PO SCH (20:40)
[2016-10-24] MEDS: FAMOTIDINE 20 MG TAB PO SCH (20:41)
[2016-10-24] MEDS: ATORVASTATIN 20 MG TAB PO SCH (20:41)
[2016-10-24] MEDS: ANALGESIC BALM CRM 120 GM TOP PRN (20:42)
[2016-10-25 05:50] VITALS: BP 159/73
[2016-10-25 05:59] LABS: MEAN CORPUSCULAR HEMOGLOBIN 30.5 pg (27.0-33.0); MEAN CORPUSCULAR HGB CONC 33.5 g/dl (32.0-36.5); MEAN CORPUSCULAR VOLUME 91.1 fl (80.0-96.0); RED CELL DISTRIBUTION WIDTH 13.4 % (11.5-14.5); WHITE BLOOD COUNT 7.8 K/mm3 (4.0-10.0)
[2016-10-25] MEDS: **hydrALAZINE** 10 MG TAB PO SCH ×3 (06:00→17:29)
[2016-10-25 06:23] LABS: ANION GAP 8 MEQ/L (8-16); BLOOD UREA NITROGEN 22 MG/DL (7-18); CALCIUM LEVEL 8.2 MG/DL (8.8-10.2); CARBON DIOXIDE LEVEL 27 MEQ/L (21-32); CHLORIDE LEVEL 100 MEQ/L (98-107); CREATININE FOR GFR 1.07 MG/DL (0.70-1.30); GLOMERULAR FILTRATION RATE > 60.0 (>35); GLUCOSE, FASTING 94 MG/DL (83-110); MAGNESIUM LEVEL 1.8 MG/DL (1.8-2.4); POTASSIUM SERUM 3.9 MEQ/L (3.5-5.1); SODIUM LEVEL 135 MEQ/L (136-145)
[2016-10-25] MEDS: LACTOBACILLUS ACIDOPHILUS CAP (BACID) PO SCH (09:22)
[2016-10-25] MEDS: amLODIPine 10 MG TAB PO SCH (09:22)
[2016-10-25] MEDS: ASPIRIN 81 MG ENTERIC TAB PO SCH (09:22)
[2016-10-25] MEDS: DOCUSATE SODIUM 100 MG CAP PO SCH ×2 (09:22→21:05)
[2016-10-25] MEDS: CIPRODEX OTIC SUSP 7.5ML AS SCH ×2 (09:23→21:06)
[2016-10-25] MEDS: METOPROLOL SUCC *XL* 25MG TAB (TopROL *XL*) PO SCH ×2 (09:23→21:08)
[2016-10-25] MEDS: NYSTATIN 100,000 UNITS/GM TOPICAL PWD 15 GM TOP SCH ×2 (09:23→21:05)
[2016-10-25 12:09] VITALS: BP 175/77
[2016-10-25 14:55] VITALS: BP 160/72
[2016-10-25] MEDS: ANALGESIC BALM CRM 120 GM TOP PRN (18:38)
[2016-10-25] MEDS: ATORVASTATIN 20 MG TAB PO SCH (21:05)
[2016-10-25] MEDS: FINASTERIDE 5 MG TAB PO SCH (21:05)
[2016-10-25] MEDS: FAMOTIDINE 20 MG TAB PO SCH (21:05)
[2016-10-25] MEDS: TROSPIUM 20 MG TAB PO SCH (21:05)
[2016-10-26] MEDS: **hydrALAZINE** 10 MG TAB PO SCH ×5 (00:30→23:57)
[2016-10-26 05:38] VITALS: BP 142/65
[2016-10-26] MEDS: LACTOBACILLUS ACIDOPHILUS CAP (BACID) PO SCH (09:13)
[2016-10-26] MEDS: DOCUSATE SODIUM 100 MG CAP PO SCH ×2 (09:13→20:17)
[2016-10-26] MEDS: ASPIRIN 81 MG ENTERIC TAB PO SCH (09:13)
[2016-10-26] MEDS: NYSTATIN 100,000 UNITS/GM TOPICAL PWD 15 GM TOP SCH ×2 (09:14→20:19)
[2016-10-26] MEDS: amLODIPine 10 MG TAB PO SCH (09:14)
[2016-10-26] MEDS: CIPRODEX OTIC SUSP 7.5ML AS SCH ×2 (09:14→20:19)
[2016-10-26] MEDS: METOPROLOL SUCC *XL* 25MG TAB (TopROL *XL*) PO SCH ×2 (09:16→20:18)
[2016-10-26] MEDS: ATORVASTATIN 20 MG TAB PO SCH (20:17)
[2016-10-26] MEDS: FAMOTIDINE 20 MG TAB PO SCH (20:17)
[2016-10-26] MEDS: TROSPIUM 20 MG TAB PO SCH (20:17)
[2016-10-26] MEDS: FINASTERIDE 5 MG TAB PO SCH (20:18)
[2016-10-27 06:00] VITALS: BP 148/64
[2016-10-27] MEDS: **hydrALAZINE** 10 MG TAB PO SCH ×4 (06:00→23:12)
[2016-10-27] MEDS: ASPIRIN 81 MG ENTERIC TAB PO SCH (09:21)
[2016-10-27] MEDS: LACTOBACILLUS ACIDOPHILUS CAP (BACID) PO SCH (09:21)
[2016-10-27] MEDS: DOCUSATE SODIUM 100 MG CAP PO SCH ×2 (09:21→20:01)
[2016-10-27] MEDS: amLODIPine 10 MG TAB PO SCH (09:22)
[2016-10-27] MEDS: METOPROLOL SUCC *XL* 25MG TAB (TopROL *XL*) PO SCH ×2 (09:22→20:01)
[2016-10-27] MEDS: NYSTATIN 100,000 UNITS/GM TOPICAL PWD 15 GM TOP SCH ×2 (09:23→20:02)
[2016-10-27] MEDS: CIPRODEX OTIC SUSP 7.5ML AS SCH (09:23)
[2016-10-27] MEDS: ACETAMINOPHEN TAB 650MG DOSE (2X325MG) PO PRN (18:04)
--- NOTE | 2016-10-27 19:49 | IPN ---
DATE: 10/27/2016 Patient seen, denies any chest pain, pressure or discomfort. Denies any fevers or chills. The patient currently is alternate level of care. VITAL SIGNS: Temperature 97.1, pulse 60, respirations 20, blood pressure 138/62, pulse oximetry 95% on room air. LABORATORY DATA: WBC 7.8, hemoglobin and hematocrit 11.5 over 34.2, platelets 126. Chemistry: Sodium 135, potassium 3.9, chloride 100, bicarbonate 27, BUN 22, creatinine 1.07. PHYSICAL EXAMINATION: GENERAL: Patient alert, cooperative, in no acute distress. HEENT: Normocephalic, atraumatic. PULMONARY: Bilaterally clear to auscultation. CARDIAC: Regular rate and rhythm. Normal S1, S2. ABDOMEN: Soft, nontender, nondistended. Positive bowel sounds. EXTREMITIES: 1+ edema bilateral lower extremities. ASSESSMENT AND PLAN: This is an 89-year-old male patient with underlying medical history of intraparenchymal hemorrhage in May 2016 with residual left-sided weakness, hypertension, coronary artery disease with stent, atrial fibrillation, on aspirin only, BPH, chronic kidney disease stage III, hearing loss, chronic vertigo, history of urinary tract infection (UTI), gastroesophageal reflux disease (GERD), presented to the hospital with weakness, lightheadedness, found to have a right-sided weakness and acute ischemic cerebrovascular accident. Problems: 1. New acute cerebrovascular accident. Discussed with family about risks and benefits of full anticoagulation; will avoid full anticoagulation given history of intracranial bleed. At this point, continue aspirin, physical therapy (PT), occupational therapy (OT). 2. Atrial fibrillation, chronic. Currently on aspirin given history of intraparenchymal bleed, echo appreciated. Continue metoprolol. Avoid anticoagulation given hemorrhagic stroke. 3. Hypertension. Currently stable. Continue current regimen. 4. Dyslipidemia. Continue statin. 5. Coronary artery disease. Status post stent placement. Aspirin, statin, metoprolol. 6. BPH. Continue current medication. 7. Deep vein thrombosis (DVT) prophylaxis. Sequential compression device. DISPOSITION: Pending placement. Short-term rehab. Patient currently alternate level of care.
[2016-10-27] MEDS: FINASTERIDE 5 MG TAB PO SCH (20:01)
[2016-10-27] MEDS: TROSPIUM 20 MG TAB PO SCH (20:01)
[2016-10-27] MEDS: ATORVASTATIN 20 MG TAB PO SCH (20:01)
[2016-10-27] MEDS: FAMOTIDINE 20 MG TAB PO SCH (20:01)
[2016-10-28] MEDS: **hydrALAZINE** 10 MG TAB PO SCH ×4 (05:39→23:50)
[2016-10-28 06:00] VITALS: BP 137/63
[2016-10-28 06:51] LABS: MEAN CORPUSCULAR HEMOGLOBIN 30.6 pg (27.0-33.0); MEAN CORPUSCULAR VOLUME 87.3 fl (80.0-96.0); RED CELL DISTRIBUTION WIDTH 13.5 % (11.5-14.5); WHITE BLOOD COUNT 9.3 K/mm3 (4.0-10.0)
[2016-10-28 07:01] LABS: ANION GAP 9 MEQ/L (8-16); BLOOD UREA NITROGEN 18 MG/DL (7-18); CALCIUM LEVEL 8.4 MG/DL (8.8-10.2); CARBON DIOXIDE LEVEL 25 MEQ/L (21-32); CHLORIDE LEVEL 99 MEQ/L (98-107); CREATININE FOR GFR 0.97 MG/DL (0.70-1.30); GLOMERULAR FILTRATION RATE > 60.0 (>35); GLUCOSE, FASTING 101 MG/DL (83-110); MAGNESIUM LEVEL 1.7 MG/DL (1.8-2.4); POTASSIUM SERUM 3.6 MEQ/L (3.5-5.1); SODIUM LEVEL 133 MEQ/L (136-145)
[2016-10-28] MEDS ORDERED: POTASSIUM CHLORIDE 10 MEQ SR TABLET PO ONE (08:15)
[2016-10-28] MEDS: DOCUSATE SODIUM 100 MG CAP PO SCH ×2 (09:05→21:21)
[2016-10-28] MEDS: MAGNESIUM OXIDE 400 MG TAB (MAG-OX) PO SCH ×2 (09:05→21:22)
[2016-10-28] MEDS: LACTOBACILLUS ACIDOPHILUS CAP (BACID) PO SCH (09:05)
[2016-10-28] MEDS: METOPROLOL SUCC *XL* 25MG TAB (TopROL *XL*) PO SCH ×2 (09:05→21:22)
[2016-10-28] MEDS: amLODIPine 10 MG TAB PO SCH (09:06)
[2016-10-28] MEDS: ASPIRIN 81 MG ENTERIC TAB PO SCH (09:06)
[2016-10-28] MEDS: NYSTATIN 100,000 UNITS/GM TOPICAL PWD 15 GM TOP SCH ×2 (09:06→21:23)
--- NOTE | 2016-10-28 13:24 | REP ---
CT BRAIN WITHOUT IV CONTRAST: CT brain is performed without IV contrast. There is moderate atrophy. There is no midline shift. There are patchy periventricular lucencies in the white matter as seen on prior study of 10/24/2016 compatible with chronic small vessel ischemic changes. 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 There is no acute hemorrhage. There is no extra-axial fluid collection. There is no skull fracture. There are vascular calcifications in the carotid siphons. IMPRESSION: Stable chronic findings without evidence of acute intracranial hemorrhage or other acute finding. Signed by Bowen Maki MD 10/28/2016 04:57 P
[2016-10-28] MEDS: ANALGESIC BALM CRM 120 GM TOP PRN (21:21)
[2016-10-28] MEDS: FINASTERIDE 5 MG TAB PO SCH (21:22)
[2016-10-28] MEDS: ACETAMINOPHEN TAB 650MG DOSE (2X325MG) PO PRN (21:22)
[2016-10-28] MEDS: ATORVASTATIN 20 MG TAB PO SCH (21:22)
[2016-10-28] MEDS: TROSPIUM 20 MG TAB PO SCH (21:23)
[2016-10-28] MEDS: FAMOTIDINE 20 MG TAB PO SCH (21:23)
--- NOTE | 2016-10-28 22:13 | IPN ---
DATE: 10/28/2016 Patient is seen and examined. Reported by nursing staff patient was slightly more lethargic than before and seems to be in more fatigued state than before also as per physical therapist. Denies any fever or chills. Patient denies any chest pain, pressure or discomfort. Is having urinary incontinence. Reported burning sensation from urination has resolved. VITAL SIGNS: Temperature 97.8, pulse 83, respirations 18, blood pressure 160/70, pulse oximetry 96% on room air. Bladder scan only showing 75 mL. LABORATORY DATA: WBC 9.3, hemoglobin and hematocrit 11.1/31.6, platelets 118. Chemistry: Sodium 132, potassium 3.6, chloride 99, bicarbonate 25, BUN 18, creatinine 0.97, magnesium 1.7. PHYSICAL EXAMINATION: GENERAL: Patient alert, arousable to verbal commands, follows simple commands, seems to be a bit more sleepy than usual, but is appropriate and responding, in no acute distress. HEENT: Normocephalic, atraumatic. PULMONARY: Bilaterally clear to auscultation. CARDIAC: Regular rate and rhythm, normal S1, S2. ABDOMEN: Soft, nontender, nondistended. Positive bowel sounds. EXTREMITIES: 1+ bilateral lower extremity edema. ASSESSMENT AND PLAN: This is an 89-year-old male patient with underlying medical history of intraparenchymal hemorrhage in May 2016, with residual left-sided weakness, hypertension, coronary artery disease with stents, atrial fibrillation, on aspirin only initially, BPH, chronic kidney disease (CKD) stage III, hearing loss, chronic vertigo, history of urinary tract infection (UTI), gastroesophageal reflux disease (GERD), presented to the hospital with weakness and lightheadedness, found to have right-sided weakness and acute CVA. 1. New acute CVA. Discussed with family about the risks and benefits of full anticoagulation. Will avoid full anticoagulation given history of intraparenchymal bleed. Will continue aspirin as per neurology. Physical therapy/occupational therapy (PT/OT). 2. Atrial fibrillation, chronic. Given aspirin. No anticoagulation given intraparenchymal bleed. Echo appreciated. Continue metoprolol. 3. Hypertension, currently stable. Continue current medication. 4. Dyslipidemia. Continue statin. 5. Coronary artery disease status post stent placement. Aspirin, statin, and metoprolol. 6. BPH. Continue current medication. 7. Deep venous thrombosis (DVT) prophylaxis. Sequential compression device (SCD). DISPOSITION: Pending placement short-term rehabilitation. Patient currently alternate level of care (AL[facility]). Lethargic. Patient with waxing and waning mental status. Obtained CT scan showing no acute finding. Patient has no focal neurological deficit. Will closely monitor the patient. If the patient is febrile, will consider straight catheterization for urine, but otherwise patient is having no urinary complaints, no dysuria or hematuria. Denies any other symptoms.
[2016-10-29] MEDS: **hydrALAZINE** 10 MG TAB PO SCH ×3 (05:26→18:00)
[2016-10-29 05:30] VITALS: BP 134/66
[2016-10-29] MEDS: ASPIRIN 81 MG ENTERIC TAB PO SCH (08:36)
[2016-10-29] MEDS: METOPROLOL SUCC *XL* 25MG TAB (TopROL *XL*) PO SCH ×2 (08:37→20:05)
[2016-10-29] MEDS: MAGNESIUM OXIDE 400 MG TAB (MAG-OX) PO SCH ×2 (08:37→20:06)
[2016-10-29] MEDS: DOCUSATE SODIUM 100 MG CAP PO SCH ×2 (08:37→20:05)
[2016-10-29] MEDS: amLODIPine 10 MG TAB PO SCH (08:37)
[2016-10-29] MEDS: NYSTATIN 100,000 UNITS/GM TOPICAL PWD 15 GM TOP SCH ×2 (08:38→20:07)
[2016-10-29] MEDS: LACTOBACILLUS ACIDOPHILUS CAP (BACID) PO SCH (08:38)
[2016-10-29] MEDS: FINASTERIDE 5 MG TAB PO SCH (20:04)
[2016-10-29] MEDS: FAMOTIDINE 20 MG TAB PO SCH (20:06)
[2016-10-29] MEDS: ATORVASTATIN 20 MG TAB PO SCH (20:06)
[2016-10-29] MEDS: ANALGESIC BALM CRM 120 GM TOP PRN (20:07)
[2016-10-29] MEDS: TROSPIUM 20 MG TAB PO SCH (20:08)
[2016-10-30] MEDS: **hydrALAZINE** 10 MG TAB PO SCH ×5 (00:08→23:40)
[2016-10-30] MEDS: MAGNESIUM OXIDE 400 MG TAB (MAG-OX) PO SCH ×2 (08:18→21:43)
[2016-10-30] MEDS: METOPROLOL SUCC *XL* 25MG TAB (TopROL *XL*) PO SCH ×2 (08:18→21:44)
[2016-10-30] MEDS: DOCUSATE SODIUM 100 MG CAP PO SCH ×2 (08:18→21:43)
[2016-10-30] MEDS: LACTOBACILLUS ACIDOPHILUS CAP (BACID) PO SCH (08:18)
[2016-10-30] MEDS: ASPIRIN 81 MG ENTERIC TAB PO SCH (08:18)
[2016-10-30] MEDS: NYSTATIN 100,000 UNITS/GM TOPICAL PWD 15 GM TOP SCH ×2 (08:18→21:44)
[2016-10-30] MEDS: amLODIPine 10 MG TAB PO SCH (08:18)
[2016-10-30 11:34] VITALS: BP 120/50
[2016-10-30 17:08] VITALS: BP 140/62
[2016-10-30] MEDS: FAMOTIDINE 20 MG TAB PO SCH (21:43)
[2016-10-30] MEDS: FINASTERIDE 5 MG TAB PO SCH (21:43)
[2016-10-30] MEDS: ATORVASTATIN 20 MG TAB PO SCH (21:44)
[2016-10-31] MEDS: TROSPIUM 20 MG TAB PO SCH ×2 (02:54→20:51)
[2016-10-31 04:40] VITALS: BP 153/71
[2016-10-31] MEDS: **hydrALAZINE** 10 MG TAB PO SCH ×4 (05:10→23:53)
[2016-10-31 06:05] LABS: MEAN CORPUSCULAR HEMOGLOBIN 30.4 pg (27.0-33.0); MEAN CORPUSCULAR HGB CONC 33.7 g/dl (32.0-36.5); MEAN CORPUSCULAR VOLUME 90.1 fl (80.0-96.0); RED CELL DISTRIBUTION WIDTH 13.4 % (11.5-14.5)
[2016-10-31 06:10] LABS: ANION GAP 10 MEQ/L (8-16); BLOOD UREA NITROGEN 22 MG/DL (7-18); CALCIUM LEVEL 8.3 MG/DL (8.8-10.2); CARBON DIOXIDE LEVEL 25 MEQ/L (21-32); CHLORIDE LEVEL 101 MEQ/L (98-107); CREATININE FOR GFR 1.05 MG/DL (0.70-1.30); GLOMERULAR FILTRATION RATE > 60.0 (>35); GLUCOSE, FASTING 95 MG/DL (83-110); MAGNESIUM LEVEL 2.1 MG/DL (1.8-2.4); POTASSIUM SERUM 3.8 MEQ/L (3.5-5.1); SODIUM LEVEL 136 MEQ/L (136-145)
[2016-10-31] MEDS: amLODIPine 10 MG TAB PO SCH (08:05)
[2016-10-31] MEDS: DOCUSATE SODIUM 100 MG CAP PO SCH ×2 (08:05→20:51)
[2016-10-31] MEDS: METOPROLOL SUCC *XL* 25MG TAB (TopROL *XL*) PO SCH ×2 (08:05→20:54)
[2016-10-31] MEDS: NYSTATIN 100,000 UNITS/GM TOPICAL PWD 15 GM TOP SCH ×2 (08:06→20:52)
[2016-10-31] MEDS: LACTOBACILLUS ACIDOPHILUS CAP (BACID) PO SCH (08:06)
[2016-10-31] MEDS: MAGNESIUM OXIDE 400 MG TAB (MAG-OX) PO SCH ×2 (08:06→20:51)
[2016-10-31] MEDS: ASPIRIN 81 MG ENTERIC TAB PO SCH (08:06)
[2016-10-31 11:53] VITALS: BP 140/66
[2016-10-31 17:05] VITALS: BP 144/64
[2016-10-31] MEDS: FAMOTIDINE 20 MG TAB PO SCH (20:51)
[2016-10-31] MEDS: FINASTERIDE 5 MG TAB PO SCH (20:51)
[2016-10-31] MEDS: ATORVASTATIN 20 MG TAB PO SCH (20:51)
[2016-11-01] MEDS: **hydrALAZINE** 10 MG TAB PO SCH ×4 (05:33→23:23)
[2016-11-01 06:00] VITALS: BP 168/70
[2016-11-01] MEDS: NYSTATIN 100,000 UNITS/GM TOPICAL PWD 15 GM TOP SCH ×2 (08:36→20:17)
[2016-11-01] MEDS: METOPROLOL SUCC *XL* 25MG TAB (TopROL *XL*) PO SCH ×2 (08:37→20:16)
[2016-11-01] MEDS: amLODIPine 10 MG TAB PO SCH (08:37)
[2016-11-01] MEDS: MAGNESIUM OXIDE 400 MG TAB (MAG-OX) PO SCH ×2 (08:37→20:16)
[2016-11-01] MEDS: DOCUSATE SODIUM 100 MG CAP PO SCH ×2 (08:37→20:16)
[2016-11-01] MEDS: LACTOBACILLUS ACIDOPHILUS CAP (BACID) PO SCH (08:37)
[2016-11-01] MEDS: ASPIRIN 81 MG ENTERIC TAB PO SCH (08:37)
[2016-11-01 11:13] VITALS: BP 146/72
[2016-11-01 17:46] VITALS: BP 140/72
[2016-11-01] MEDS: ATORVASTATIN 20 MG TAB PO SCH (20:15)
[2016-11-01] MEDS: TROSPIUM 20 MG TAB PO SCH (20:15)
[2016-11-01] MEDS: FAMOTIDINE 20 MG TAB PO SCH (20:16)
[2016-11-01] MEDS: FINASTERIDE 5 MG TAB PO SCH (20:16)
[2016-11-01 23:23] VITALS: BP 142/68
[2016-11-02 03:35] VITALS: BP 174/82
[2016-11-02] MEDS: **hydrALAZINE** 10 MG TAB PO SCH ×4 (05:04→23:32)
[2016-11-02 06:00] VITALS: BP 191/86
[2016-11-02 07:19] VITALS: BP 164/72
[2016-11-02] MEDS: ASPIRIN 81 MG ENTERIC TAB PO SCH (08:49)
[2016-11-02] MEDS: METOPROLOL SUCC *XL* 25MG TAB (TopROL *XL*) PO SCH ×2 (08:49→20:14)
[2016-11-02] MEDS: MAGNESIUM OXIDE 400 MG TAB (MAG-OX) PO SCH ×2 (08:49→20:14)
[2016-11-02] MEDS: DOCUSATE SODIUM 100 MG CAP PO SCH ×2 (08:49→20:14)
[2016-11-02] MEDS: NYSTATIN 100,000 UNITS/GM TOPICAL PWD 15 GM TOP SCH ×2 (08:49→20:15)
[2016-11-02] MEDS: LACTOBACILLUS ACIDOPHILUS CAP (BACID) PO SCH (08:49)
[2016-11-02] MEDS: MOM 30ML SUSPENSION UDC PO PRN (11:22)
[2016-11-02] MEDS: amLODIPine 10 MG TAB PO SCH (11:23)
--- NOTE | 2016-11-02 13:16 | IPN ---
DATE: 11/02/2016 SUBJECTIVE: Mr. Cancino is an 89-year-old male who was seen and examined at the bedside. The patient denies overnight issues; however, in the morning, the patient had one episode of fall, which was witnessed by the nursing staff. The patient was able to stand up from his bed to go to the bathroom when he experienced a collapse; however, the patient did not have any injuries. The patient denies chest pain, orthopnea, paroxysmal nocturnal dyspnea. The patient also denies nausea, vomiting, diarrhea or constipation. OBJECTIVE: VITAL SIGNS: Temperature 97.7, pulse 62, respiratory rate 20, blood pressure 164/72, pulse oximetry 98% on room air. Total intake from yesterday 560 and total output 750. GENERAL APPEARANCE: The patient was sitting on the chair, no acute distress. The patient was awake, alert and oriented to time, place and person. HEENT: Normocephalic, atraumatic. Pupils are equal and reactive to light. Oral mucosa is moist. NECK: Soft and supple. No lymphadenopathy or thyromegaly. No jugular venous distention (JVD). HEART: Regular rate and rhythm. Normal S1, S2. ABDOMEN: Soft and nontender with positive bowel sounds in all quadrants. LUNGS: Clear breath sounds bilaterally. Good air movement. EXTREMITIES: The patient has +1 lower extremity edema bilaterally. Feet are warm. +2 pulses in both lower extremities. The patient has normal range of motion in both upper and lower extremities. ASSESSMENT AND PLAN: 1. Episode of fall. The patient's physical examination did not indicate any fracture; however, the patient has mild tenderness in the chest in the ribcage, therefore I have ordered a chest x-ray to rule out any fracture, result is pending at this time. 2. New CVA. The risks and benefits of full anticoagulation was discussed with the family. The patient has a history of intraparenchymal bleed. Therefore, at this time, we will continue the patient on aspirin, as per neurology. Also, we have consulted physical therapy (PT) and occupational therapy (OT). 3. History of atrial fibrillation. This is a chronic issue. The patient is on aspirin. Due to intraparenchymal bleed, the patient is not on full coagulation therapy. At this time, the patient is on metoprolol 25 mg by mouth twice a day. The patient's heart rate is controlled. We will continue to monitor the patient for any abnormal symptoms. 4. Hypertension. Today, the patient's blood pressure is mildly elevated. We will continue patient on his current blood pressure medication (metoprolol succinate 25 mg by mouth twice a day, Norvasc 10 mg by mouth daily, hydralazine 30 mg every 6 hours by mouth). 5. Dyslipidemia. The patient is on Lipitor 80 mg by mouth at night. 6. Coronary artery disease. The patient is on Lipitor, aspirin and metoprolol. 7. Benign prostatic hypertrophy (BPH). Symptoms are currently controlled. We will continue the patient on Proscar. 8. Overactive bladder. The patient is on Sanctura 20 mg by mouth at night. 9. Deep vein thrombosis (DVT) prophylaxis. The patient is on sequential compression device (SCD), as well as TEDs. 10. Constipation, the patient is on Colace 100 mg by mouth twice a day. 11. Dry eyes. We will continue the patient on artificial tears. 12. Gastroesophageal reflux disease (GERD). We will continue the patient on Pepcid. My preceptor for this patient encounter was Dr. Carpio. The preceptor was physically present in the building during the encounter and was fully available. As needed , all aspects of the patient interview, examination, medical decision making process, and medical care plan development were reviewed and approved by the preceptor. The preceptor is aware and concurs with the plan as stated in the body of this note and will attest to such by his/her cosignature. I have both independently examined this patient as well as reviewed the note. I have discussed in detail with the resident the findings and plan of treatment as documented in the residents note. I will continue to follow the patient and offer further guidance to the patients care as necessary during this hospital stay. Pilar CANTU
--- NOTE | 2016-11-02 15:05 | REP ---
Portable chest: Single view. History: Chest pain, possible fracture. Comparison study: September 30, 2016. Findings: The lungs are symmetrically aerated and clear. Pleural angles are sharp. Heart is not enlarged. The aorta is calcific and tortuous as before. Pulmonary vasculature is not increased. Impression: No active disease. Signed by Rohan Richardson MD 11/02/2016 02:57 P
[2016-11-02 20:10] VITALS: BP 150/62
[2016-11-02] MEDS: ATORVASTATIN 20 MG TAB PO SCH (20:14)
[2016-11-02] MEDS: FAMOTIDINE 20 MG TAB PO SCH (20:14)
[2016-11-02] MEDS: FINASTERIDE 5 MG TAB PO SCH (20:14)
[2016-11-02] MEDS: TROSPIUM 20 MG TAB PO SCH (20:15)
[2016-11-03] MEDS: **hydrALAZINE** 10 MG TAB PO SCH (05:01)
[2016-11-03 06:00] VITALS: BP 143/70
[2016-11-03 07:15] LABS: MEAN CORPUSCULAR HEMOGLOBIN 30.1 pg (27.0-33.0); MEAN CORPUSCULAR HGB CONC 34.1 g/dl (32.0-36.5); MEAN CORPUSCULAR VOLUME 88.4 fl (80.0-96.0); RED CELL DISTRIBUTION WIDTH 13.4 % (11.5-14.5); WHITE BLOOD COUNT 6.2 K/mm3 (4.0-10.0)
[2016-11-03 07:37] LABS: ANION GAP 7 MEQ/L (8-16); BLOOD UREA NITROGEN 20 MG/DL (7-18); CALCIUM LEVEL 8.3 MG/DL (8.8-10.2); CARBON DIOXIDE LEVEL 28 MEQ/L (21-32); CHLORIDE LEVEL 102 MEQ/L (98-107); CREATININE FOR GFR 1.17 MG/DL (0.70-1.30); GLOMERULAR FILTRATION RATE > 60.0 (>35); GLUCOSE, FASTING 92 MG/DL (83-110); MAGNESIUM LEVEL 2.2 MG/DL (1.8-2.4); POTASSIUM SERUM 3.9 MEQ/L (3.5-5.1); SODIUM LEVEL 137 MEQ/L (136-145)
[2016-11-03] MEDS: ASPIRIN 81 MG ENTERIC TAB PO SCH (08:35)
[2016-11-03] MEDS: DOCUSATE SODIUM 100 MG CAP PO SCH (08:35)
[2016-11-03] MEDS: MAGNESIUM OXIDE 400 MG TAB (MAG-OX) PO SCH (08:35)
[2016-11-03] MEDS: LACTOBACILLUS ACIDOPHILUS CAP (BACID) PO SCH (08:35)
[2016-11-03 08:36] VITALS: BP 136/95
[2016-11-03] MEDS: NYSTATIN 100,000 UNITS/GM TOPICAL PWD 15 GM TOP SCH (08:36)
[2016-11-03] MEDS: amLODIPine 10 MG TAB PO SCH (08:36)
[2016-11-03] MEDS: METOPROLOL SUCC *XL* 25MG TAB (TopROL *XL*) PO SCH (08:36)
[2016-11-03] MEDS ORDERED: ATOR1TAB21 PO (09:56)
[2016-11-03] MEDS ORDERED: ASPI81TAEC PO (09:56)
--- NOTE | 2016-12-04 12:27 | DSES ---
DATE OF ADMISSION: 09/30/2016 DATE OF DISCHARGE: 11/03/2016 PRIMARY CARE PHYSICIAN: [facility] ([place]), [place], [place]. CONSULTANTS: Dr. Zaidi. PROCEDURES: None. PRIMARY DIAGNOSIS: New acute cerebrovascular accident (CVA). SECONDARY DIAGNOSES: 1. Atrial fibrillation, chronic. 2. Hypertension. 3. Dyslipidemia. 4. Coronary artery disease. 5. Benign prostatic hypertrophy (BPH). DISCHARGE MEDICATIONS: - aspirin 81 mg by mouth daily - atorvastatin 80 mg by mouth at bedtime - amlodipine besylate 5 mg by mouth daily - chlorthalidone 12.5 mg by mouth daily - docusate 100 mg by mouth twice a day - finasteride 5 mg by mouth at bedtime - hydralazine 20 mg by mouth every six hours - metoprolol succinate 25 mg by mouth twice a day - polyethelene one drop both eyes daily as needed for dry eyes - ranitidine one tablet by mouth at bedtime - Lillian-Bid probiotic one tablet by mouth twice a day - trospium chloride 20 mg by mouth at bedtime HOSPITAL PRESENTATION: Mr. 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 He fell to his knees at one point, but denies injury to loss of consciousness (LOC). The patient has a history of vertigo, but stated just feeling dizzy. The patient was admitted to the progressive care unit (PCU) for observation. The patient received 500 mL intravenous (IV) bolus in the emergency department (ED). Chlorthalidone was held. Physical therapy and occupational therapy (OT) were consulted. The patient had imaging technique including MRI which showed 1.1 x 0.5 cm ischemic focus in the right rose radiata. Neurology was consulted. The patient also had atrial fibrillation; however, the rate was controlled. The patient was on Coumadin; however, Coumadin was held in light of intraparenchymal hemorrhage on 05/2016. The last PT/INR was 13.7/1.04. Dr. Zaidi instructed that the patient continue on telemetry and restart aspirin 81 mg by mouth. Also, blood pressure continued with a goal systolic of 140 to 180 for 24 hours [address] then [address] Dr[address] Zaidi and the hospitalist discussed regarding avoiding warfarin due to history of intraparenchymal hemorrhage. The patient was continued with the aspirin 81, and continued with physical therapy and occupational therapy. Physical medicine and rehabilitation (PM and R) consult was performed. The patient had an echocardiogram which was done on 09/20/2016, which indicated ejection fraction of 65%, severe mitral annular calcification, trace mitral regurgitation, mild tricuspid regurgitation. Patient was continued with metoprolol 25 twice daily for rate control. The patient was continued on aspirin due to history of hemorrhagic CVA. The patient also had one episode of fall during hospitalization. However, physical examination did not indicate any fracture. However, the patient expressed mild tenderness in the chest in the rib cage area; therefore, chest x-ray was ordered which ruled out fracture. The patient was transferred to [facility] ([facility] At the time of transfer, the patient was medically optimized. DISCHARGE PLACEMENT: [facility]. ACTIVITY: Activity as tolerated by the patient. FOLLOWUP: Please followup with your primary care. My preceptor for this patient encounter was Dr. Pilar Carpio. The preceptor was physically present in the building during the encounter and was fully available as needed. All aspects of the patient interview, examination, medical decision making process, and medical care plan development were reviewed and approved by the preceptor. The preceptor is aware and concurs with the plan as stated in the body of this note and will attest to such by his/her co-signature.
== END 2016-11-03 11:35 | DRG 65 ==
LOC: EDBD 09:29 → M ED 12:06 → M ED INP 15:27 → M PCU 16:55 → M MSPAV 10-03 18:35
PROVIDERS: ADMIT Internal Medicine; ATTEND Internal Medicine
DX: I63.9 Cerebral infarction, unspecified (principal); I69.351 Hemiplegia and hemiparesis following cerebral infarction affecting right dominant side; I69.354 Hemiplegia and hemiparesis following cerebral infarction affecting left non-dominant side; Z66 Do not resuscitate; I13.10 Hypertensive heart and chronic kidney disease without heart failure, with stage 1 through stage 4 chronic kidney disease, or unspecified chronic kidney disease; I48.91 Unspecified atrial fibrillation; E78.5 Hyperlipidemia, unspecified; I25.10 Atherosclerotic heart disease of native coronary artery without angina pectoris; K59.00 Constipation, unspecified; N40.0 Benign prostatic hyperplasia without lower urinary tract symptoms; K21.9 Gastro-esophageal reflux disease without esophagitis; N18.3 Chronic kidney disease, stage 3 (moderate); Z95.9 Presence of cardiac and vascular implant and graft, unspecified; Z97.4 Presence of external hearing-aid; H91.93 Unspecified hearing loss, bilateral; Z87.440 Personal history of urinary (tract) infections; Z87.891 Personal history of nicotine dependence; Z79.899 Other long term (current) drug therapy; Z79.82 Long term (current) use of aspirin

== ENCOUNTER → 2016-11-05 | Outpatient (REF) ==
[~2016-11-05] MED LIST changes: +ACID1CAP PO; +ASPI81TAEC PO; +ATOR1TAB21 PO; +DOCU100C PO; +RANI1TAB38 PO; +RANI1TAB6 PO
[2016-11-05 09:10] LABS: MEAN CORPUSCULAR HEMOGLOBIN 29.9 pg (27.0-33.0); MEAN CORPUSCULAR HGB CONC 33.6 g/dl (32.0-36.5); RED CELL DISTRIBUTION WIDTH 13.4 % (11.5-14.5)
[2016-11-05 09:37] LABS: CREATININE FOR GFR 1.27 MG/DL (0.70-1.30); GLOMERULAR FILTRATION RATE 56.8 (>35); POTASSIUM SERUM 3.9 MEQ/L (3.5-5.1)
== END ==
LOC: SKLAB2 08:41
DX: I10 Essential (primary) hypertension (principal)

== ENCOUNTER → 2016-11-30 | Outpatient (REF) ==
[2016-11-30 08:03] LABS: MEAN CORPUSCULAR HEMOGLOBIN 30.7 pg (27.0-33.0); MEAN CORPUSCULAR HGB CONC 35.4 g/dl (32.0-36.5); MEAN CORPUSCULAR VOLUME 86.7 fl (80.0-96.0); WHITE BLOOD COUNT 5.1 K/mm3 (4.0-10.0)
[2016-11-30 08:57] LABS: ANION GAP 8 MEQ/L (8-16); BLOOD UREA NITROGEN 19 MG/DL (7-18); CARBON DIOXIDE LEVEL 30 MEQ/L (21-32); CHLORIDE LEVEL 96 MEQ/L (98-107); CREATININE FOR GFR 1.05 MG/DL (0.70-1.30); GLOMERULAR FILTRATION RATE > 60.0 (>35); GLUCOSE, FASTING 102 MG/DL (83-110); POTASSIUM SERUM 3.4 MEQ/L (3.5-5.1); SODIUM LEVEL 134 MEQ/L (136-145)
== END ==
LOC: SKLAB2 07:00
DX: I10 Essential (primary) hypertension (principal)

== ENCOUNTER → 2016-12-07 | Outpatient (REF) ==
[2016-12-07 10:28] LABS: ANION GAP 5 MEQ/L (8-16); BLOOD UREA NITROGEN 19 MG/DL (7-18); CARBON DIOXIDE LEVEL 32 MEQ/L (21-32); CHLORIDE LEVEL 97 MEQ/L (98-107); CREATININE FOR GFR 1.05 MG/DL (0.70-1.30); GLOMERULAR FILTRATION RATE > 60.0 (>35); GLUCOSE, FASTING 109 MG/DL (83-110); POTASSIUM SERUM 3.5 MEQ/L (3.5-5.1); SODIUM LEVEL 134 MEQ/L (136-145)
== END ==
LOC: SKLAB2 08:00
DX: I10 Essential (primary) hypertension (principal)